=== PATIENT | male | born 1960 | race Caucasian/White ===

== ENCOUNTER 2016-11-11 22:30 | Inpatient (IN) | payer OTHER ==
[~2016-11-11] VITALS: Ht 185.4 cm; Wt 92.5 kg
--- NOTE | 2016-11-11 23:01 | NUR ---
PT SENT TO ED BY DR HO FOR FEVER AT HOME 89 AND +N/V, WEAKNESS S/P [address] SANTOS. HAD RT BKA STUMP REVISION AND HAND PINKY LEFT HAND AMPUTATED. ALSO HAD SOME ABCESSES ON LEFT PALM TREATED. PT STATES "IT MAY BE FOOD POISONING. I ATE THE LAST PIECE OF PIZZA FROM THE [place] AND THIS ALL STARTED AN HOUR LATER" PT DROUSEY IN TRIAGE. DR SANTOS WOULD LIKE TO BE CALLED WITH FOLLOW UP HAS "" FISTULA IN [place]. BP'S ARE TAKEN ON LEFT FOREARM. 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 TEMP IN TRIAGE 99.5. PT CLOTHES SOAKED IN SWEAT. HAS BEEN INCONTIANT OF URINE WHICH IS NOT HIS NORM
--- NOTE | 2016-11-11 23:09 | ED GI/GU/ABDOMINAL COMPLAINT ---
History of Present Illness General Chief Complaint: General Adult Stated Complaint: PT IS VOMITING Source: patient, family Exam Limitations: no limitations Vital Signs & Intake/Output Vital Signs & Intake/Output Vital Signs Date Time Temp Pulse Resp B/P B/P Pulse O2 O2 Flow FiO2 Mean Ox Delivery Rate 11/12 0353 97.2 72 18 106/58 94 Nasal 2.0L Cannula 11/12 0245 98.9 95 18 95/49 96 Nasal 2.0L Cannula 11/12 0130 95/49 11/12 0127 94 Nasal 2.0L Cannula 11/12 0125 98.9 71 20 91/48 94 Nasal 2.0L Cannula 11/11 2252 99.5 86 18 121/74 93 Room Air ED Intake and Output 11/12 0000 11/11 1200 Intake Total Output Total Balance Patient 240 lb Weight Weight Reported by Patient Measurement Method Allergies Coded Allergies: cefepime (HIVES 11/09/16) darbepoetin sherley (From ARANESP (IN ALBUMIN)) (throat swells 11/09/16) linezolid (blurry vision 11/09/16) metformin (GI DISTRESS 11/09/16) ondansetron (From ZOFRAN ( HYDROCHLORIDE)) (irregular heartbeat 11/09/16) sulfamethoxazole (From BACTRIM) (KIDNEY ISSUES 11/10/16) trimethoprim (From BACTRIM) (KIDNEY ISSUES 11/10/16) Reconcile Medications Cholecalciferol (Vitamin D3) (Vitamin D) 2,000 UNIT CAPSULE 1 CAP PO DAILY HEALTH SUPPLEMENT (Reported) Mycophenolate Mofetil 500 MG TABLET 2 TAB PO BID IMMUNOSUPPRESSANT (Reported) Pantoprazole Sodium (Protonix) 20 MG TABLET. 1 TAB PO DAILY GERD (Reported) Prednisone 5 MG TABLET 1 TAB PO DAILY INFLAMMATION (Reported) Tacrolimus 1 MG CAPSULE 2 CAP PO BID ANTI-REJECTION (Reported) Triage Note: PT SENT TO ED BY DR HO FOR FEVER AT HOME 89 AND +N/V, WEAKNESS S/P [address] SANTOS. HAD RT BKA STUMP REVISION AND HAND PINKY LEFT HAND AMPUTATED. ALSO HAD SOME ABCESSES ON LEFT PALM TREATED. PT STATES "IT MAY BE FOOD POISONING. I ATE THE LAST PIECE OF PIZZA FROM THE [place] AND THIS ALL STARTED AN HOUR LATER" PT DROUSEY IN TRIAGE. DR SANTOS WOULD LIKE TO BE CALLED WITH FOLLOW UP HAS "" FISTULA IN [place]. BP'S ARE TAKEN ON LEFT FOREARM. 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 TEMP IN TRIAGE 99.5. PT CLOTHES SOAKED IN SWEAT. HAS BEEN INCONTINAT OF URINE WHICH IS NOT HIS NORM Triage Nurses Notes Reviewed? yes Duration: hour(s): Timing: recent history Quality/Severity: moderate Modifying Factors: Improves With: rest. Worsens With: vomiting. Associated Symptoms: nausea/vomiting HPI: 56-year-old gentleman with peripheral vascular disease, status post right BKA, status post left finger amputation, on daptomycin via PICC line for osteomyelitis of his left hand, presents with riders and nausea and vomiting for the past several hours. He notes that he had debriding of his right BKA stump as well as debriding of his left palm or chronic infection. These procedures Job without complication. He felt well upon discharge. However soon after returning home he developed Reiger's, and a high fever. He does not confer shortness of breath cough phlegm chest pain rashes or headache. "I just didn't feel well. It happened all of a sudden. I began shaking, and sweating." Past History Travel History Traveled to [place] past 21 day No Medical History Any Pertinent Medical History? see below for history Cardiovascular: peripheral vascular disease Musculoskeletal: osteomyelitis of a left finger Surgical History Surgical History: left finger amputation, right below the knee amputation Family History Hx Contributory? No Review of Systems Review of Systems Constitutional: Reports: no symptoms. EENTM: Reports: no symptoms. Respiratory: Reports: no symptoms. Cardiovascular: Reports: no symptoms. GI: Reports: no symptoms. Genitourinary: Reports: no symptoms. Musculoskeletal: Reports: no symptoms. Skin: Reports: no symptoms. Neurological/Psychological: Reports: no symptoms. Hematologic/Endocrine: Reports: no symptoms. Immunologic/Allergic: Reports: no symptoms. All Other Systems: Reviewed and Negative Physical Exam Physical Exam General Appearance: well developed/nourished, mild distress Head: atraumatic, normal appearance Eyes: Bilateral: normal appearance. Ears, Nose, Throat, Mouth: hearing grossly normal, dry mucosa Neck: normal inspection, supple, full range of motion Respiratory: normal breath sounds, chest non-tender, no respiratory distress Cardiovascular: regular rate/rhythm Gastrointestinal: normal bowel sounds, soft, non-tender, no organomegaly Back: normal inspection Extremities: normal range of motion Neurologic/Psych: no motor/sensory deficits, awake, alert, oriented x 3 Skin: intact Core Measures ACS in differential dx? No Severe Sepsis Present: No Septic Shock Present: No Progress Differential Diagnosis: UTI versus pneumonia versus bacteremia versus other Plan of Care: Orders Procedure Date/time Status Consistent Carbohydrate 2 11/12 B Active TROPONIN LEVEL 11/12 1200 Active EKG 11/12 1200 Active TROPONIN LEVEL 11/12 0600 Active CBC WITHOUT DIFFERENTIAL 11/12 0600 Active EKG 11/12 0600 Active LACTIC ACID 11/12 0550 Active Pathway - chart 11/12 0250 Active CULTURE,URINE 11/12 0250 Active LOWER RESPIRATORY CULTURE 11/12 0250 Active URINALYSIS 11/12 0250 Active MAGNESIUM 11/12 0250 Active LACTIC ACID 11/12 0250 Active BASIC ELECTROLYTES PLUS BUN&CR 11/12 0250 Active EKG 11/12 0250 Active Patient Data 11/12 0125 Active Saline Lock 11/12 0117 Active Misc Message 11/12 0117 Active ED Holding Orders 11/12 0117 Active Admit to inpatient 11/12 0117 Active Vital Signs 11/12 0117 Active Code Status 11/12 0117 Active BLOOD CULTURE 11/12 0045 Active BLOOD CULTURE 11/12 0042 Active VTE Mechanical Prophylaxis 11/12 UNK Active FingerStick- Glucose 11/12 UNK Active ECHOCARDIOGRAM 11/12 UNK Active Intake & Output 11/11 2336 Active TROPONIN LEVEL 11/11 2235 Complete LIPASE 11/11 2235 Complete HEPATIC FUNCTION PANEL 11/11 2235 Complete CBC WITHOUT DIFFERENTIAL 11/11 2235 Complete BASIC METABOLIC PANEL 11/11 2235 Complete AMYLASE 11/11 2235 Complete EKG 11/11 2235 Active Current Medications Sig/Margaret Start time Last Medication Dose Stop Time Status Admin Insulin Detemir 25 UNITS 2200 11/12 2200 AC (Levemir) Insulin Detemir 55 UNITS DAILY 11/12 1000 AC (Levemir) Insulin Aspart 0 TIDAC 11/12 0800 AC (NovoLOG) Heparin Sodium 5,000 UNIT Q8 11/12 0600 UNVr (Porcine) Sodium Chloride 1,000 ML BOLUS ONE 11/12 0315 UNVr 11/12 (Normal Saline 0.9%) 11/12 0414 0317 Sodium Chloride 1,000 ML .[id number] 11/12 0245 UNVr (Normal Saline 0.9%) Laboratory Tests 11/11/16 2345: Anion Gap 14, Estimated GFR 34 L, BUN/Creatinine Ratio 21.0, Glucose 154 H, Calcium 9.8, Total Bilirubin 0.4, Direct Bilirubin 0.3, AST 21, ALT 34, Alkaline Phosphatase 57, Troponin I 0.52 *H, Total Protein 6.0 L, Albumin 3.4 L, Amylase 56, Lipase 132, CBC w Diff MAN DIFF ORDERED, RBC 5.57, MCV 85.3, MCH 27.0, RDW 16.0 H, MPV 7.2 L, Gran % 97.4 H, Lymphocytes % 1.5 L, Monocytes % 0.9 L, Eosinophils % 0.2, Basophils % 0 L, Absolute Granulocytes 19.2 H, Segmented Neutrophils 94 H, Band Neutrophils 4, Absolute Lymphocytes 0.3 L, Lymphocytes 1 L, Monocytes 1 L, Absolute Monocytes 0.2, Absolute Eosinophils 0 , Absolute Basophils 0, Platelet Estimate ADEQUATE, Polychromasia 1+, Hypochromic-Microcytic 1+, Ovalocytes FEW, Stomatocytes FEW, PUBS MCHC 31.7 L, Fld Total RBCs Counted 100 Microbiology 11/12 249 URINE ROUT: Urine Culture - ORD 11/12 249 LOWER RESP: Respiratory Culture - ORD 11/12 249 LOWER RESP: Gram Stain - ORD 11/12 010 BLOOD: Blood Culture - RECD 11/12 005 BLOOD: Blood Culture - RECD Diagnostic Imaging: Viewed by Me: Radiology Read. Discussed w/RAD: Radiology Read. CXR Impression: left opacity. Initial ED EKG: normal axis, normal intervals, normal p-waves, normal QRS complex, normal sinus rhythm Comments: PATIENT: MAXI KENDRICK JR PRESENT AGE: 56 PATIENT ACCOUNT NO: [id number] : 56 LOCATION: [facility] ORDERING PHYSICIAN: ALEJANDRO GAR MD SERVICE DATE: 11/11/16 EXAM TYPE: RAD - XRY-PORTABLE CHEST XRAY EXAMINATION: XR PORTABLE CHEST CLINICAL INFORMATION: Fever and hypoxia COMPARISON: 04/14/2016 TECHNIQUE: Portable frontal view of the chest was obtained. FINDINGS: Median sternotomy wires appear intact. Low lung volumes. Hazy left basilar opacity partially obscures the left hemidiaphragm. No pleural effusion or pneumothorax. The cardiomediastinal silhouette remains prominent. IMPRESSION: Hazy left basilar opacity could represent atelectasis or pneumonia. DICTATED BY: ADWOA ALVARADO MD DATE/TIME DICTATED:11/11/162331 CASH POSTING CLERK:MICKIE DATE/TIME TRANSCRIBED:11/11/162331 CONFIDENTIAL, DO NOT COPY WITHOUT APPROPRIATE AUTHORIZATION. <Electronically signed in Other Vendor System> SIGNED BY: ADWOA ALVARADO MD 11/11 Departure Departure Disposition: STILL A PATIENT Condition: Stable Clinical Impression Primary Impression: Pneumonia Secondary Impressions: Elevated troponin, Renal failure, Sepsis Referrals: ANJANA COBURN,JAZZY Vásquez (PCP/Family) Departure Forms: Customer Survey General Discharge Information Comments 11/11/16, discussed with Dr. Powers prior to arrival of patients... 23:30... discussed with surgical PA who will evaluate patient. Admission Note Spoke With: TWILA ADAMS MD Documentation of Exam: Documentation of any treatments & extenuating circumstances including Concerns Regarding Discharge (functional status, medication knowledge or non-compliance, living conditions, etc.) that warrant an admission rather than observation: Patient with positive troponin, sepsis most likely from pneumonia, in the context of his significant peripheral vascular disease, patient merits admission for broad-spectrum IV antibiotics. as well as management of his positive troponin. With Dr. alfredo who concurs with the plan of oral beta blockers and aspirin. We will hold off on heparin given his recent surgery and the risk of postsurgical bleeding. Also, the etiology of the elevated troponin is most likely supply demand rather than acute thrombus. His choice of antibiotics is challenging. He is on daptomycin which covers MRSA. Given his pneumonia, and long-standing antibiotics, it would be prudent to cover for anaerobes and also for pseudomonas. Since he is allergic to cephalosporins, I cannot give him ceftaz. I will give Cipro which does have some possible coverage for Pseudomonas. Also I wrote for clindamycin to cover anaerobes. He should have an ID consult this morning. He is otherwise stable. In discussion with Dr. Faisal Dailey, he is stable for Critical Care Note Critical Care Note Critical Care Time: 30-74 min
--- NOTE | 2016-11-11 23:20 | NUR ---
RECIEVED TO ROOM 10.
--- NOTE | 2016-11-11 23:34 | NUR ---
PT UNDRESSED FOR EXAM. DTR AT BEDSIDE ABLE TO PROVIDE HISTORY OF EVENTS AND PMH. DR GAR IN TO SEE PT.
--- NOTE | 2016-11-11 23:34 | NUR ---
FINGERSTICK 150.
--- NOTE | 2016-11-11 23:34 | NUR ---
ATTEMPTED TO DRAW LABS FROM [facility] PICC BUT NIETHER LINE GIVES BLOOD RETURN. BOTH LINES FLUSHED WITH 10CC SALINE , FLUSHES EASILY. PT STATES PICC LINE STOPPED GIVING BLOOD ABOUT A WEEK AGO.
--- NOTE | 2016-11-11 23:36 | RADIOLOGY REPORT ---
EXAMINATION: XR PORTABLE CHEST CLINICAL INFORMATION: Fever and hypoxia COMPARISON: 04/14/2016 TECHNIQUE: Portable frontal view of the chest was obtained. FINDINGS: Median sternotomy wires appear intact. Low lung volumes. Hazy left basilar opacity partially obscures the left hemidiaphragm. No pleural effusion or pneumothorax. The cardiomediastinal silhouette remains prominent. IMPRESSION: Hazy left basilar opacity could represent atelectasis or pneumonia.
--- NOTE | 2016-11-11 23:40 | NUR ---
REPORT GIVEN TO SUSSY HANSEN
--- NOTE | 2016-11-11 23:51 | NUR ---
SURGICAL PA AT BEDSIDE.
[2016-11-12 00:12] LABS: ABSOLUTE BASOPHIL COUNT 0 /CUMM (0.0-0.2); ABSOLUTE EOSINOPHIL COUNT 0 /CUMM (0.0-0.7); ABSOLUTE GRANULOCYTE CT 19.2 /CUMM (1.4-6.5); ABSOLUTE LYMPH COUNT 0.3 /CUMM (1.2-3.4); ABSOLUTE MONOCYTE COUNT 0.2 /CUMM (0.10-0.60); BASOPHIL % 0 % (0.0-2.0); EOSINOPHIL % 0.2 % (0-5); GRANULOCYTE % 97.4 % (42.2-75.2); HEMATOCRIT 47.5 % (42-52); MEAN CORPUSCULAR HGB CONC 31.7 G/DL (33.0-37.0); MEAN CORPUSCULAR VOLUME 85.3 FL (80.0-94.0); MEAN PLATELET VOLUME 7.2 FL (7.4-10.4); PLATELET COUNT 254 /CUMM (130-400); RED BLOOD CELL CT 5.57 /CUMM (4.70-6.10); WHITE BLOOD CELL COUNT 19.8 /CUMM (4.8-10.8)
--- NOTE | 2016-11-12 00:23 | PN- Plastic Surgery ---
Surgical Brief Attending Note Brief Attending Note: Patient presents back to the ED after leaving from a same day surgery earlier today, by for a revision righ bka and completion amputation of left small finger, including metacarpal with debridement. Of note, the patient is s/p I&D left hand from another institution. Due to the patient presenting back with reported fever, both dressings were taken down for examination of the incisions / surgical sites. There is no evidence of acute infection of either surigcal site. Both incisions were well approximated with sutures, with expected carina-operative bloody drainage. No purulents, gas, or unexpected findings were observed. The surgical sites were re -dressed with xeroform and dry guaze dressings. Of note, the chest xray appears to show evidence of an opacity, which could likely be the source of his fever given that he has been apparently vomiting at home since he ate pizza after surgery earlier today. Will d/w
--- NOTE | 2016-11-12 01:23 | History & Physical ---
SUZETTELOUISTARSHA MEJIA 11/12/16 0122: General Information and HPI MD Statement: I have seen and personally examined MAXI DUTTON JR and documented this H&P. The patient is a 56 year old M who presented with a patient stated chief complaint of fever Source of Information: patient Exam Limitations: no limitations History of Present Illness: 56-year-old gentleman with past medical history significant for insulin- dependent type 2 diabetes mellitus, end-stage renal disease initially on dialysis now status post right cadaveric kidney transplant in 2010 on mycophenolate, tacrolimus and prednisone, history of RI, Takotsubu, right below knee amputation with recurrent infection [stump revision in 2012, 2014], left foot partial amputation in January 2016, brought to ED for evaluation of fever and rigor after revsion of right BKA and I&D left hand from another institution. After his same day surgery, when he went home he had multiple episodes of non- bloody, non-bilious vomiting, he also experienced rigors and documented fever 103 at home associated with weakness and dizziness. Since the past month he reports that he's been having intermittent fever and night sweats, intermittent productive cough which at times he brought up greenish brownish sputum and also dysuria intermittently. Night chest pain, shortness of breath, sick contacts. At baseline uses a wheelchair and is independent with most of his ILD is able to "come his daughters help with the shopping. He also has [facility] services to his house. Allergies/Medications Compliance With Home Meds: FAIR Past History Travel History Traveled to [place] past 21 day No Medical History Neurological: NONE EENT: NONE Cardiovascular: CAD, hypertension, myocardial infarction, CABG Respiratory: NONE Gastrointestinal: NONE Hepatic: NONE Renal: chronic kidney disease, renal transplant, OLD CLOTTED AVF L ARM Musculoskeletal: R BKA, LEFT 5TH FINGER AM Psychiatric: NONE Endocrine: diabetes Blood Disorders: NONE Surgical History Surgical History: rBKA, right kidney transplant Past Family/Social History Family History Relations & Conditions if any FATHER Atrial fibrillation Relation not specified for: Hypertension in mother Psychosocial History Where do you live? Home Who Do You Live With? child Services at Home: Nursing ETOH Use: denies use Illicit Drug Use: denies illicit drug use Functional Ability ADLs Independent: dressing, eating. Needs Assist: toileting, bathing. Ambulation: WHEELCHAIR IADLs Independent: finances, food prep, telephone, medication admin. Needs Assist: shopping, housework, transportation. Employment History Employment PROFESSOR Review of Systems Review of Systems Constitutional: Reports: chills, diaphoresis, fever, weakness. Denies: malaise, unexplained weight loss. Cardiovascular: Denies: chest pain, edema, orthopena, palpitations, peripheral edema, syncope. Respiratory: Denies: cough, hemoptysis, orthopnea, short of breath, sputum production, stridor, wheezing. GI: Reports: vomiting. Denies: abdominal pain, bloating, constipation, diarrhea, distention, bowel incontinence, melena, nausea, bloody stool, changes in stool, steatorrhea. Genitourinary: Reports: dysuria. Exam & Diagnostic Data Last 24 Hrs of Vital Signs/I&O Vital Signs Date Time Temp Pulse Resp B/P B/P Pulse O2 O2 Flow FiO2 Mean Ox Delivery Rate 11/12 0353 97.2 72 18 106/58 94 Nasal 2.0L Cannula 11/12 0245 98.9 95 18 95/49 96 Nasal 2.0L Cannula 11/12 0130 95/49 11/12 0127 94 Nasal 2.0L Cannula 11/12 0125 98.9 71 20 91/48 94 Nasal 2.0L Cannula 11/11 2252 99.5 86 18 121/74 93 Room Air Intake & Output 11/12 0800 11/12 0000 11/11 1600 Intake Total Output Total Balance Patient 240 lb Weight Weight Reported by Patient Measurement Method Physical Exam General Appearance Alert, Oriented X3, Cooperative, No Acute Distress Skin Temp/Moisture Exam: Warm/Dry Sepsis Skin Exam (color): Normal for Ethnicity HEENT Atraumatic, PERRLA, EOMI, DRY MUCOUS MEMBRANES Neck Supple, No thryomegaly Lymphatic Cervical nl Cardiovascular Regular Rate, Normal S1, Normal S2 Lungs Clear to Auscultation, Normal Air Movement Abdomen Soft, No Tenderness, DISTENDED Neurological Normal Speech, Cranial Nerves 3-12 NL Extremities No Edema Diagnostic Data EKG Results Normal sinus rhythm heart rate 75 CXR Results FINDINGS: Median sternotomy wires appear intact. Low lung volumes. Hazy left basilar opacity partially obscures the left hemidiaphragm. No pleural effusion or pneumothorax. The cardiomediastinal silhouette remains prominent. IMPRESSION: Hazy left basilar opacity could represent atelectasis or pneumonia. Assessment/Plan Assessment: 56-year-old gentleman with past medical history significant for insulin- dependent type 2 diabetes mellitus, end-stage renal disease initially on dialysis now status post right cadaveric kidney transplant in 2010 on mycophenolate, tacrolimus and prednisone, history of RI, Takotsubu, right below knee amputation with recurrent infection [stump revision in 2012, 2014], left foot partial amputation in January 2016, brought to ED for evaluation of fever and rigor after revsion of right BKA and I&D left hand from another institution. Labs pertinent for leukocytosis with left shift no significant bandemia for, elevated creatinine 2.0/BUN 42, troponin 0.52, chest x-ray showed hazy left basilar opacity. Admitted to the telemetry floor for the following issues As Ranked By This Provider Problem List: 1. Sepsis Assessment/Plan Meets sepsis criteria (increased white count, hypotension and increase heart rate, possible source of left hand osteomyelitis versus pneumonia) Given two liter bolus to which his blood pressure responded, will continue on maintenance fluids cautiously avoid fluid overload He was initially on daptomycin for his left hand osteomyelitis One-time dose of clindamycin and Cipro was given in ED Follow-up blood cultures, urine culture/ UA and lactic acid His hypotension could also be secondary to adrenal insufficiency as he has been on chronic steroid. We are holding his prednisone for now. If he continues to be hypotensive, might require stress dose steriods. We will continue to monitor closely. 2. Osteomyelitis Assessment/Plan left hand osteomyelitis s/p I/D was on daptomycin as outpatient, will continue this, will ask patient to bring it from home. will obtain ID consult in am f 3. Elevated troponin Assessment/Plan NSTEMI vs demand ischemia secondary to kidney insufficiency admitt to tele floor for continuous jack of all trades trend EKG and trop to r/O ACS has history of takotsubo in the past, f/up echo continue ASA cardio consult in am 4. Renal failure Assessment/Plan gene on ckd possible secondary to pre-renal azotemia gentle IV hydration will hold immunosuppressive meds of mycophenolate and tacrolimus in view of his current infection neprology consult. 5. Diabetes Assessment/Plan monitor fingersticks continue longacting insulin and high dose insulin sliding scale diabetic diet 6. DNI (do not intubate) 7. DNR (do not resuscitate) Core Measures/Miscellaneous Acute Coronary Syndrome ACS Diagnosis: No Cerebrovascular Accident CVA/TIA Diagnosis: No Congestive Heart Failure CHF Diagnosis: No VTE (View Protocol) VTE Risk Factors: Age > 40, Immobility, paresis No Mech VTE prophylaxis d/t: Amputee No VTE Pharm Prophylaxis d/t: No contraindications VTE Diagnosis: No VTE Type: NONE VTE Confirmed by (Test): NONE Sepsis (View Protocol) Severe Sepsis Present: No Septic Shock Septic Shock Present: No Miscellaneous Documentation Attending Case Discussed With: TWILA ADAMS MD Primary Care Physician: JAZZY YEUNG MD Patient sees these Specialists DR. Babb heart customer care consultant of [place] Dr. Saini nephrology Level of Patient Care: Telemetry AMADOU COBURN,FRANCA 11/12/16 0305: General Information and HPI Allergies/Medications Allergies: Coded Allergies: nut - unspecified (Severe, DIARRHEA 11/12/16) ULCERS IN THROAT cefepime (HIVES 11/09/16) darbepoetin sherley (From ARANESP (IN ALBUMIN)) (throat swells 11/09/16) linezolid (blurry vision 11/09/16) metformin (GI DISTRESS 11/09/16) ondansetron (From ZOFRAN ( HYDROCHLORIDE)) (irregular heartbeat 11/09/16) sulfamethoxazole (From BACTRIM) (KIDNEY ISSUES 11/10/16) trimethoprim (From BACTRIM) (KIDNEY ISSUES 11/10/16) Home Med list Aspirin (Ecotrin*) 325 MG TABLET.DR 1 TAB PO DAILY heart health (Reported) Cholecalciferol (Vitamin D3) (Vitamin D) 2,000 UNIT CAPSULE 1 CAP PO DAILY HEALTH SUPPLEMENT (Reported) Mycophenolate Mofetil 500 MG TABLET 2 TAB PO BID IMMUNOSUPPRESSANT (Reported) Pantoprazole Sodium (Protonix) 20 MG TABLET.DR 1 TAB PO DAILY GERD (Reported) Prednisone 5 MG TABLET 1 TAB PO DAILY INFLAMMATION (Reported) Tacrolimus 1 MG CAPSULE 2 CAP PO BID ANTI-REJECTION (Reported) Resident Review Statement Resident Statement: examined this patient, discussed with agriculture intern, agreed with agriculture intern, reviewed EMR data (avail), reviewed images, amended to note Other Findings: Mr. Dutton is a 56-year-old male with a complicated past medical history including type 2 diabetes, hypertension, hyperlipidemia, RI, CAD, takosubo's cardiomyopathy IBS with constipation, end-stage renal disease status post right kidney transplant with a cadaveric kidney on tacrolimus, mycophenolate, and prednisone since 2010. Patient comes in with complaints of right gutters, chills and a fever 103 at home after surgery today for amputation of the little finger on his left hand secondary to osteomyelitis and revision of his right BKA due to nonhealing ulcer and infection. Patient is on daptomycin for the osteomyelitis. Problem list 1. Sepsis likely secondary to osteomyelitis on his left little finger as well as possible bacteremia from surgical and ablation of an infected right BKA -Hypotension -Fever -Posiible Source elicited ; see above -Tachycardia 2. Community-acquired Pneumonia 3. Osteomyelitis of the left little finger status post amputation 4. Type 2 diabetes 5. Acute kidney injury on CKD 6. Hx of ESRD status post right renal transplant on [facility] immunosuppressive medications. 7. History of CAD, takosubo's cardiomyopathy Plan -Admit to telemetry for monitoring -Restart daptomycin for his Osteomyelitis from AM-patient received a dose of ciprofloxacin and clindamycin in the ED -Patient is allergic to cefalosporin -Blood cultures 2, urine cultures, UA -Infectious disease consult -Nephrology consult -Plastic surgery consult -Cardiology consult -Hold his immunosuppressive meds until evaluation by a paint specialist in setting of infection -IV fluid hydration to maintain blood pressure; watch closely to avoid overload -Consider stress dose steroids hydrocortisone 100 mg 1 if patient's blood pressure does not respond to IV fluids -Pain management-By mouth Tylenol for mild pain; Give dilaudid for severe pain but hold for now due to low blood pressure -Diabetic diet -DNR/DNI -SC heparin for DVT ppx ANGIE COBURN, [facility] 11/12/16 0342: Attending MD Review Statement Attending Statement Attending MD Statement: examined this patient, discuss w/resident/PA/PUBLIC AFFAIRS DIRECTOR, agreed w/resident/PA/PUBLIC AFFAIRS DIRECTOR Attending Assessment/Plan: 56 yo unfortunate M has an extensive past history insulin dependent diabetes, HTN, suffered RI and Takutsubo CMP after his 's in 2007 requiring CABG , c/b multiorgan failure and nephrotoxicity due to contrast requiring dialysis for 2 yrs after which he underwent right cadaveric kidney transplant (2010) currently maintained on Cellcept, prograf and prednisone, CKD stage 3, IBS-C, gangrene of the right foot s/p right BKA (grew MRSA, beta strep, gram neg) with chronic ulcers, left foot partial toe amputation (2015), recently developed osteomyelitis of left small finger s/p I and D currently on IV daptomycin for past 1.5 weeks (plan for 4 weeks) as per his ID at [facility]. He underwent complete amputation of left small finger including metacarpal with debridement and revision of right BKA on November [address] Powers. He comes to the ER for c/o rigors, multiple episodes of vomiting, fever 103, cough productive of brownish phlegm and weakness. He reports that his cough has been ongoing for a few weeks now. He is wheelchair bound. He reports not being able to urinate over past 24 hours, but states he dribbles. When offered a samson, he refused. Of note , his daughter is respiratory therapist. Patient also reports that he underwent MUGA scan 2 weeks ago but is not aware of the results. Vitals: Tmax 99.5, HR 70-90's, BP 121/74 --> 91/48 --> 106/58 after IV fluids, sats 94% on 2L. Exam: dry mucous membranes, lethargic but responsive to quesions apprpriately. Skin warm/dry. Chest b/l clear, Heart S1S2 regular, Abdo soft, NT. Left hand and right BKA stump dressings ++. Labs: WBC 19.8, H/H 15.1/47.3, Plt 254, bands 4, biccarb 20, BUN 42, creat 2.0 (baseline 1.3), glucose 154, trop 0.52, amylase/lipase normal. CXR: hazy left basilar opacity ?pneumonia vs. Atelectasis. EKG: SR, IVCD (no old EKG to compare). 1. Sepsis (fever with leukocytosis and hypotension) with likely source being the left basilar pneumonia. Although I do not have a UA yet and per Plastic surgery eval, the surgical stumps sites look clean. He is currently on Daptomycin for left small finger osteomyelitis. No other sites of SSTI. In addition, he has troponin elevation likely NSTEMI vs. Demand ischemia. He will be admitted to Telemetry, monitored for arrhythmias, trend troponin, obtain Echo, Cardio consult. Obtain results of most recent MUGA scan. Aspirin, metoprolol (when BP allows) and statin. Per discussion with Dr. Dailey, holding off on IV heparin due to recent surgery and risk of bleeding, most likely demand ischemia. Panculture, IV fluids, check lactic acid, patient received IV clindamycin and ciprofloxacin in ER, he is also on IV daptomycin daily. Antibiotic choice will be challenging in this patient, would ideally cover him for HCAP with Ceftaz and Vanco. Daptomycin covers for MRSA. He is allergic to cefepime ?hives. We will hold off on additional antibiotics for now. Consult ID to help with antibiotic coverage. Obtain records from [facility], regarding dose of Daptomycin, exact duration and resume Daptomycin today. Plastic surgery to consult. Check cortisol levels, continue home dose of prednisone. If patient remains persistently hypotensive, I would consider giving stress dose steroids as patient is on chronic prednisone therapy for his renal transplant. 2. GENE on CKD stage 3 with metabolic acidosis. IV hydration, trend renal functions. Consult Nephro given patient is on immunosuppresive therapy. Check urinalysis, urine lytes and urine tox screen. DVT ppx Hep SC. DNR/I.
--- NOTE | 2016-11-12 01:26 | NUR ---
PT MEDICATED PER WITH ASPIRIN, CIPRO AND CLEOCIN.
--- NOTE | 2016-11-12 01:30 | NUR ---
PT HAS WOUNDS TO BOTTOM FROM BEING WHEELCHAIR BOUND. PT REPOSITIONED IN STRETCHER.
--- NOTE | 2016-11-12 01:45 | NUR ---
HOUSESTAFF IN TO NANCY PT.
--- NOTE | 2016-11-12 01:45 | NUR ---
PT'S BP 91/48, FRANCA JEAN MADE AWARE. NS BOLUS INITIATED PER EMAR.
--- NOTE | 2016-11-12 01:46 | NUR ---
PT'S RM ASSIGNMENT 176 BED 1
--- NOTE | 2016-11-12 02:10 | NUR ---
REPORT GIVEN TO JADE BLACK ON TELEMETRY.
[2016-11-12] MEDS ORDERED: TACROLIMUS1 M1 PO (02:51)
[2016-11-12] MEDS ORDERED: MYCOPHENOLATE500 M1 PO (02:52)
[2016-11-12] MEDS ORDERED: PREDNISONE5 M1 PO (02:56)
[2016-11-12] MEDS ORDERED: PROTONIX20 M1 PO (02:56)
[2016-11-12] MEDS ORDERED: VITAMIN D2000 UNIT PO (02:57)
--- NOTE | 2016-11-12 03:10 | NUR ---
DR ADAMS AT BEDSIDE FOR EVAL.
--- NOTE | 2016-11-12 03:11 | NUR ---
DR ADAMS AWARE OF PT'S BP.
--- NOTE | 2016-11-12 03:18 | NUR ---
NS BOLUS #2 INITITATED PER EMAR.
[2016-11-12 03:53] VITALS: BP 106/58
[2016-11-12] MEDS ORDERED: ASPIRIN EC325 M2 PO (04:39)
--- NOTE | 2016-11-12 05:20 | Admission Certification ---
Admission Certification Certification Statement - As attending physician, I certify that at the time of - admission, based on clinical presentation, severity of - symptoms, need for further diagnostic testing and - therapeutic interventions, and risk of adverse outcomes - without in-hospital treatment, in my clinical assessment, - this patient requires an acute hospital stay for a minimum - of two nights or longer. I have also considered psychsocial - factors such as support system, advanced age, financial - issues, cognitive issues, and failed out-patient treatments, - past re-admission history, safety of patient, and lack of - compliance as applicable. Specific rationale supporting this admission is: Sepsis, NSTEMI, JEAN on CKD.
[2016-11-12 08:29] LABS: ABSOLUTE BASOPHIL COUNT 0 /CUMM (0.0-0.2); ABSOLUTE EOSINOPHIL COUNT 0 /CUMM (0.0-0.7); ABSOLUTE LYMPH COUNT 0.3 /CUMM (1.2-3.4); ABSOLUTE MONOCYTE COUNT 0.7 /CUMM (0.10-0.60); BASOPHIL % 0 % (0.0-2.0); EOSINOPHIL % 0 % (0-5); GRANULOCYTE % 95.9 % (42.2-75.2); MEAN CORPUSCULAR HGB 27.3 PG (27.0-31.0); MEAN CORPUSCULAR HGB CONC 31.9 G/DL (33.0-37.0); MEAN CORPUSCULAR VOLUME 85.7 FL (80.0-94.0); MEAN PLATELET VOLUME 7.3 FL (7.4-10.4); PLATELET COUNT 215 /CUMM (130-400); RBC DISTRIBUTION WIDTH 15.6 % (11.5-14.5); RED BLOOD CELL CT 4.67 /CUMM (4.70-6.10)
[2016-11-12 08:56] LABS: HEMATOCRIT 40.1 % (42-52)
[2016-11-12 09:00] VITALS: BP 110/60
--- NOTE | 2016-11-12 09:35 | NUR ---
ADMITTED PATIENT FROM THE ER ON A STRETCHER. HE CAME VERY WEAK AND TIRED. DRESSING TO HIS RIGHT BKA OPENED UP AND DRESSING WAS CHANGED WITH XEROFOAM, KERLIX WRAP AND SARITA WRAPPED, SECURED WITH A TAPE. ALERT AND ORIENTED TO PLACE, PERSON AND TIME. WAS JUST DISCHARGED ON MONDAY AND WENT HOME BUT NOT FEELING WELL AFTER A MEAL OF PIZZA, N/V CAME BACK DEHYDRATED. WAS GIVEN A BOLUS OF 2 BAGS OF 1L NS IN THE ER AND STARTED ON A CONTINUOUS INFUSION OF NS AT 75ML/HR. RBKA INSION WITH SUTURES INTACT AND WELL APPROXIMATED BUT STILL DRAINING MODERATE BLOODY OUTPUT. ACCU CHECKED, LABS DRAWN IN AM.REVIEWED ADMISSION PROTOCOLS WITH PATIENT. BED IN LOW POSITION, CALL MARTINEZ AT REACH. PATIENT COMPLAINED OF PAIN OF 8 OUT OF 10 ON HIS RBKA AND 5 ON HIS LEFT PALM WOUND. REFUSED NARCOTICS, REQUESTED FOR TYLENOL. STATED THAT NARCOTIC MAKES HIM SICK TO HIS TO HIS STOMACH. TYLENOL OF GOOD EFFECT. REPORT GIVEN TO THE NEXT SHIFT RN.
--- NOTE | 2016-11-12 14:54 | Cons- Cardiology ---
General Information and HPI Consulting Request Date of Consult: 11/12/16 Requested By: ANGIE COBURN,TWILA History of Present Illness: Mr. Dutton is a 56 year old male with history of hypertension, diabetes and coronary artery disease s/p OH with CABG x 2 and stress induced cardiomyopathy. He also is a vasculopath with extensive peripheral vascular disease. Finally, this patient has a history of renal failure with a transplanted kidney. Yesterday this patient underwent surgery for his right leg stump and left hand. After surgery the patient went home where he became nauseated and felt weak with documented fever. He denies chest pain, pressure, tightness, shortness of breath at his current level of activity of palpitaitons. He does have some occasional lightheadedness and was noted to have paroxysma of type 1 second degree AV block. His troponin is elevated in the setting of a creatinine of 2.0. The patient has an elevated WBC count along with a possible infiltrate on his chest X-ray. Allergies/Medications Allergies: Coded Allergies: nut - unspecified (Severe, DIARRHEA 11/12/16) ULCERS IN THROAT cefepime (HIVES 11/09/16) darbepoetin sherley (From ARANESP (IN ALBUMIN)) (throat swells 11/09/16) linezolid (blurry vision 11/09/16) metformin (GI DISTRESS 11/09/16) ondansetron (From ZOFRAN ( HYDROCHLORIDE)) (irregular heartbeat 11/09/16) sulfamethoxazole (From BACTRIM) (KIDNEY ISSUES 11/10/16) trimethoprim (From BACTRIM) (KIDNEY ISSUES 11/10/16) Home Med List: Aspirin (Ecotrin*) 325 MG TABLET.DR 1 TAB PO DAILY heart health (Reported) Cholecalciferol (Vitamin D3) (Vitamin D) 2,000 UNIT CAPSULE 1 CAP PO DAILY HEALTH SUPPLEMENT (Reported) Mycophenolate Mofetil 500 MG TABLET 2 TAB PO BID IMMUNOSUPPRESSANT (Reported) Pantoprazole Sodium (Protonix) 20 MG TABLET.DR 1 TAB PO DAILY GERD (Reported) Prednisone 5 MG TABLET 1 TAB PO DAILY INFLAMMATION (Reported) Tacrolimus 1 MG CAPSULE 2 CAP PO BID ANTI-REJECTION (Reported) Review of Systems Review of Systems: A twelve point review of systems is remarkable for occasional heartburn. Past History Travel History Traveled to [place] past 21 day No Medical History Neurological: NONE EENT: NONE Cardiovascular: peripheral vascular disease Respiratory: NONE Gastrointestinal: NONE Hepatic: NONE Renal: chronic kidney disease, renal transplant, OLD CLOTTED AVF L ARM Musculoskeletal: osteomyelitis of a left finger Psychiatric: NONE Endocrine: diabetes Blood Disorders: NONE Surgical History Surgical History: rBKA right kidney transplant Family History Relations & Conditions If Any: FATHER Atrial fibrillation Relation not specified for: Hypertension in mother Psychosocial History Where Do You Live? Home Who Do You Live With? child Services at Home: Nursing Smoking Status: Former Smoker ETOH Use: denies use Illicit Drug Use: denies illicit drug use Functional Ability ADLs Independent: dressing, eating. Needs Assist: toileting, bathing. Ambulation: WHEELCHAIR IADLs Independent: finances, food prep, telephone, medication admin. Needs Assist: shopping, housework, transportation. Employment History Employment: PROFESSOR Exam & Diagnostic Data Vital Signs and I&O Vital Signs Date Time Temp Pulse Resp B/P B/P Pulse O2 O2 Flow FiO2 Mean Ox Delivery Rate 11/12 0900 98.3 72 20 110/60 92 Room Air 11/12 0353 97.2 72 18 106/58 94 Nasal 2.0L Cannula 11/12 0345 94 Nasal 2.0L Cannula 11/12 0245 98.9 95 18 95/49 96 Nasal 2.0L Cannula 11/12 0130 95/49 11/12 0127 94 Nasal 2.0L Cannula 11/12 0125 98.9 71 20 91/48 94 Nasal 2.0L Cannula 11/11 2252 99.5 86 18 121/74 93 Room Air Intake & Output 11/12 1600 11/12 0800 11/12 0000 11/11 1600 11/11 0800 11/11 0000 Intake Total 1080 720 Output Total 600 Balance 480 720 Intake, IV 600 600 Intake, Oral 480 120 Number 1 Bowel Movements Output, Urine 600 Patient 204 lb 204 lb 240 lb Weight Weight Reported by Patient Reported by Patient Measurement Method Physical Exam: General: WD/ overweight male in NAD; alert and oriented x 3 HEENT: NC/AT, PERRL, EOMI Neck: no JVD, no carotid bruit Heart: RRR w/o murmur Lungs: clear bilaterally Abdomen: soft, obese, NT, +ve bowel sounds Ext: no edema, Right BKA, left hand bandaged Assessment/Plan Assessment/Plan * This patient had a transient low normal blood pressure following surgery without any definite evidence of sepsis. The patient likely was mildly dehydrated. This patient may also have a mild infection although he denies any definite cough or shortness of breath suggestive of pneumonia and his elevated WBC count may be related to his steroid therapy. * In regard to the patient's cardiac status he is ruling in for an OH with borderline inferior ST elevations. We will attempt to treat this medically considering his absence of pain and more importantly his renal transplant with increased creatinine. A dye load during a cardiac catheterization would run a good chance of sacrificing his kidney. Begin IV heparin, aspirin and Plavix 300mg followed by 75mg daily. He will need careful monitoring of his H/H and recent wounds. In consideration of his low normal BP I will not begin nitrates especially if he is pain free. Beta blockers are also contraindicated due to his bradycardia with second degree AV block. Continue to monitor on telemetry. Follow cardiac enzymes until they peak. * No ACEI due to borderline BP and increased creatinine. * Obtain an echocardiogram to assess his EF. Consult Acknowledgment - Thank you for your consult request.
[2016-11-12 15:40] VITALS: BP 140/62
--- NOTE | 2016-11-12 16:19 | PN- Att Addend ---
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, with past medical history significant for IDDM, hypertension, [place], cardiomyopathy, CABG, status post right cadaveric kidney transplant in 2010 and on multiple immunosuppressive therapy, CK D stage III, gangrene of the right foot status post right below-knee amputation with chronic ulcers, left foot partial amputation and recently developed osteomyelitis of the left small finger status post incision and drainage currently on IV daptomycin for the past 1-1/2 weeks and debridement and division of the right below-knee amputation on November 11 by the plastic surgeon has been admitted to the floor with fever, rigors or vomiting and productive cough and is currently being treated for possible pneumonia and osteomyelitis. Patient was seen and examined on the bedside and had a lengthy discussion about his past medical history. Patient in good spirits, excellent communication and reports no fever or pain and feels excellent as compared to when he was admitted last night. Of note patient had elevated troponins for which cardiology was put on board and suggested to treat him with IV heparin, aspirin and Plavix with a loading dose. We'll get an echo and will keep him off of beta blockers because of his bradycardia and second-degree AV block and nitrates given no chest pain and low blood pressure. Patient was also thoroughly discussed with the ID recommended to continue with his immunosuppressive therapy including steroids and will try obtaining his daptomycin from home which is not available in house. We'll consider giving him a stress dose of steroids if his blood pressure drops. Will get a nephrology consult given history of transplant kidney with immunosuppressive therapy and elevated creatinine. Continue insulin. We will closely monitor for any bleeding given his recent minor surgical procedures since he is on IV heparin.
--- NOTE | 2016-11-12 18:35 | Cons- Nephrology ---
General Information and HPI Consulting Request Date of Consult: 11/12/16 Requested By: ANGIE COBURN,TWILA History of Present Illness: Mr. Dutton is a 56 yo gentleman with ESRD due to DM who started dialysis i 2008 and had a 6 antigen match kidney in 2010 at [facility]. He has had multiple admissions for infection in his foot, stump and hand and was recently in [facility] for treatment of this. He has a baseline Creatinine of about 1.5 and came to [facility] yesterday as outpt for surgery with amputation of a finger and debridement of his wound. Creatinine was 1.3 prior to surgery. He went home had developed fever to 103 and rigors and returned and now has a creatinine of 2.0. Allergies/Medications Allergies: Coded Allergies: nut - unspecified (Severe, DIARRHEA 11/12/16) ULCERS IN THROAT cefepime (HIVES 11/09/16) darbepoetin sherley (From ARANESP (IN ALBUMIN)) (throat swells 11/09/16) linezolid (blurry vision 11/09/16) metformin (GI DISTRESS 11/09/16) ondansetron (From ZOFRAN ( HYDROCHLORIDE)) (irregular heartbeat 11/09/16) sulfamethoxazole (From BACTRIM) (KIDNEY ISSUES 11/10/16) trimethoprim (From BACTRIM) (KIDNEY ISSUES 11/10/16) Home Med List: Aspirin (Ecotrin*) 325 MG TABLET.DR 1 TAB PO DAILY heart health (Reported) Cholecalciferol (Vitamin D3) (Vitamin D) 2,000 UNIT CAPSULE 1 CAP PO DAILY HEALTH SUPPLEMENT (Reported) Mycophenolate Mofetil 500 MG TABLET 2 TAB PO BID IMMUNOSUPPRESSANT (Reported) Pantoprazole Sodium (Protonix) 20 MG TABLET.DR 1 TAB PO DAILY GERD (Reported) Prednisone 5 MG TABLET 1 TAB PO DAILY INFLAMMATION (Reported) Tacrolimus 1 MG CAPSULE 2 CAP PO BID ANTI-REJECTION (Reported) Current Medications: Current Medications Sig/Margaret Start time Last Medication Dose Route Stop Time Status Admin Acetaminophen 650 MG Q4 PRN 11/12 0430 AC 11/12 PO 0439 Aspirin 81 MG DAILY 11/13 1000 AC PO Aspirin 0 .STK-MED ONE 11/12 0115 DC PO Aspirin 325 MG ONCE ONE 11/125 DC 11/12 PO 06/10 0046 0118 Aspirin Buffered 325 MG DAILY 11/12 1000 DC 11/12 PO 0855 Cholecalciferol 2,000 IU DAILY 11/12 1000 AC 11/12 PO 0855 Ciprofloxacin 500 MG BID 11/12 1405 AC PO 11/16 1404 Ciprofloxacin 0 .STK-MED ONE 11/12 0115 DC PO Ciprofloxacin 500 MG ONCE ONE 11/12 0045 DC 11/12 PO 11/12 0046 0118 Clindamycin 600 MG ONCE ONE 11/12 0045 DC 11/12 Dextrose/Water 50 ML IV 11/12 0114 0118 Clopidogrel Bisulfate 75 MG DAILY 11/13 1000 AC PO Clopidogrel Bisulfate 300 MG ONCE ONE 11/12 1500 DC PO 11/12 1501 Heparin Sodium 4,000 UNIT ONE ONE 11/12 1615 DC (Porcine) IV 11/12 1616 Heparin Sodium 5,000 UNIT ONCE ONE 11/12 1500 CAN (Porcine) IV 11/12 1530 Heparin Sodium 25,000 UNIT Q24H 11/12 1500 AC (Porcine) IV Sodium Chloride 500 ML Heparin Sodium 5,000 UNIT Q8 11/12 0600 DC 11/12 (Porcine) SC 1352 Hydromorphone HCl 0.5 MG Q4P PRN 11/12 0430 AC 11/12 IV 0855 Insulin Aspart 15 UNITS TIDAC 11/12 1700 AC SC Insulin Aspart 0 TIDAC 11/12 0800 AC 11/12 SC 1208 Insulin Detemir 25 UNITS 2200 11/12 2200 AC SC Insulin Detemir 55 UNITS DAILY 11/12 1000 AC 11/12 SC 0855 Metoprolol Tartrate 12.5 MG ONCE ONE 11/12 0100 DC PO 11/12 0101 Mycophenolate Mofetil 750 MG BID 11/12 2200 AC PO Mycophenolate Mofetil 1,000 MG BID 11/12 1209 DC 11/12 PO 1352 Non-Formulary 0 SEE ADMIN CRITERIA 11/12 1415 UNVr Medication ANY Polyethylene Glycol 17 GM DAILY PRN 11/12 0430 AC PO Prednisone 15 MG DAILY 11/12 1210 AC 11/12 PO 1352 Senna/Docusate Sodium 1 TAB BID PRN 11/12 0430 AC PO Sodium Chloride 1,000 ML BOLUS ONE 11/12 0315 DC 11/12 IV 11/12 0414 0317 Sodium Chloride 1,000 ML .[id number] 11/12 0245 AC 11/12 IV 0500 Sodium Chloride 1,000 ML BOLUS ONE 11/12 0145 DC 11/12 IV 11/12 0244 0143 Tacrolimus 1 MG AT BEDTIME 11/12 2200 AC PO Tacrolimus 1.5 MG DAILY 11/12 1345 AC PO Tacrolimus 2 MG BID 11/12 1215 DC PO Review of Systems Review of Systems: As in HPI otherwise negative. Past History Travel History Traveled to [place] past 21 day No Medical History Neurological: NONE EENT: NONE Cardiovascular: peripheral vascular disease Respiratory: NONE Gastrointestinal: NONE Hepatic: NONE Renal: chronic kidney disease, renal transplant, OLD CLOTTED AVF L ARM Musculoskeletal: osteomyelitis of a left finger Psychiatric: NONE Endocrine: diabetes Blood Disorders: NONE Surgical History Surgical History: rBKA right kidney transplant Family History Relations & Conditions If Any: FATHER Atrial fibrillation Relation not specified for: Hypertension in mother Psychosocial History Where Do You Live? Home Who Do You Live With? child Services at Home: Nursing Smoking Status: Former Smoker ETOH Use: denies use Illicit Drug Use: denies illicit drug use Functional Ability ADLs Independent: dressing, eating. Needs Assist: toileting, bathing. Ambulation: WHEELCHAIR IADLs Independent: finances, food prep, telephone, medication admin. Needs Assist: shopping, housework, transportation. Employment History Employment: PROFESSOR Exam & Diagnostic Data Vital Signs and I&O M comfortable 140/62 98.9 74 Skin neg rash Eyes anicteric ENT moist Lungs clear Cor RRR Abd obese N/T Ext s/p r bkA, left foot bandaged, left hand bandaged Results Pertinent Lab Results: Laboratory Tests 11/12 11/12 11/12 1705 1215 1215 Chemistry Troponin I (<0.11 ng/ml) 2.38 *H Toxicology Urine Opiates Screen (>2000 NG/ML) < 100.00 Methadone Screen (>300 NG/ML) < 40 Barbiturate Screen (>200 NG/ML) < 60 Ur Phencyclidine Scrn (>25 NG/ML) < 6.00 Amphetamines Screen (>1000 NG/ML) < 100 U Benzodiazepines Scrn (>200 NG/ML) > 800 H Urine Cocaine Screen (>300 NG/ML) < 50 Urine Cannabis Screen (>50 NG/ML) < 5.00 Urines Urine Color (YEL,AMB,STR) YEL Urine Clarity (CLEAR) CLEAR Urine pH (5.0 - 8.0) 6.0 Ur Specific [place] (1.001 - 1.035) 1.020 Urine Protein (NEG,<30 MG/DL) 100 H Urine Ketones (NEG) NEG Urine Nitrite (NEG) NEG Urine Bilirubin (NEG) NEG Urine Urobilinogen (0.1 - 1.0 EU/dl) 0.2 Ur Leukocyte Esterase (NEG) SMALL H Ur Microscopic SEDIMENT EXAMINED Urine RBC (0 - 5 /HPF) RARE Urine WBC (0 - 2 /HPF) 25-50 H Urine Mucus (FEW,NONE) FEW Urine Hemoglobin (NEG) TRACE-INTACT H Ur Random Creatinine (mg/dL) 124.6 Ur Random Sodium (30 - 90 mmol/L) 36 Ur Random Potassium (mmol/L) 27.7 Fraction Sodium Excret (<1% %) 0.4 Urine Glucose (N MG/DL) 250 H 11/12 11/12 11/12 1125 1125 0630 Chemistry Lactic Acid (0.7 - 2.1 mmol/L) 1.5 Troponin I (<0.11 ng/ml) 2.25 *H Cortisol AM Sample (4.46 - 22.7 ug/dL) 11.8 10 06 0630 0250 Chemistry Sodium Cancelled Potassium Cancelled Chloride Cancelled Carbon Dioxide Cancelled Anion Gap Cancelled BUN Cancelled Creatinine Cancelled BUN/Creatinine Ratio Cancelled Hemoglobin A1c (4.2 - 5.8 %) Pending Lactic Acid Cancelled Magnesium Cancelled Troponin I (<0.11 ng/ml) 1.90 *H Hematology CBC w Diff MAN DIFF ORDERED WBC (4.8 - 10.8 /CUMM) 23.0 H RBC (4.70 - 6.10 /CUMM) 4.67 L Hgb (14.0 - 18.0 G/DL) 12.8 L Hct (42 - 52 %) 40.1 L MCV (80.0 - 94.0 FL) 85.7 MCH (27.0 - 31.0 PG) 27.3 RDW (11.5 - 14.5 %) 15.6 H Plt Count (130 - 400 /CUMM) 215 MPV (7.4 - 10.4 FL) 7.3 L Gran % (42.2 - 75.2 %) 95.9 H Lymphocytes % (20.5 - 51.1 %) 1.2 L Monocytes % (1.7 - 9.3 %) 2.9 Eosinophils % (0 - 5 %) 0 Basophils % (0.0 - 2.0 %) 0 L Absolute Granulocytes (1.4 - 6.5 /CUMM) 22.0 H Segmented Neutrophils (42.2 - 75.2 %) 85 H Band Neutrophils (0.0 - 5.0 %) 11 H Absolute Lymphocytes (1.2 - 3.4 /CUMM) 0.3 L Lymphocytes (20.5 - 51.1 %) 1 L Monocytes (1.7 - 9.3 %) 3 Absolute Monocytes (0.10 - 0.60 /CUMM) 0.7 H Absolute Eosinophils (0.0 - 0.7 /CUMM) 0 Absolute Basophils (0.0 - 0.2 /CUMM) 0 Platelet Estimate (ADEQUATE) VERIFIED BY SMEAR Anisocytosis 1+ PUBS MCHC (33.0 - 37.0 G/DL) 31.9 L 11/11 2345 Chemistry Sodium (137 - 145 mmol/L) 137 Potassium (3.5 - 5.1 mmol/L) 3.8 Chloride (98 - 107 mmol/L) 104 Carbon Dioxide (22 - 30 mmol/L) 20 L Anion Gap (5 - 16) 14 BUN (9 - 20 mg/dL) 42 H Creatinine (0.7 - 1.2 mg/dL) 2.0 H Estimated GFR (>60 ml/min) 34 L BUN/Creatinine Ratio (7 - 25 %) 21.0 Glucose (65 - 99 mg/dL) 154 H Calcium (8.4 - 10.2 mg/dL) 9.8 Total Bilirubin (0.2 - 1.3 mg/dL) 0.4 Direct Bilirubin (< 0.4 mg/dL) 0.3 AST (17 - 59 U/L) 21 ALT (21 - 72 U/L) 34 Alkaline Phosphatase (< 127 U/L) 57 Troponin I (<0.11 ng/ml) 0.52 *H Total Protein (6.3 - 8.2 g/dL) 6.0 L Albumin (3.5 - 5.0 g/dL) 3.4 L Amylase (30 - 110 U/L) 56 Lipase (23 - 300 U/L) 132 Hematology CBC w Diff MAN DIFF ORDERED WBC (4.8 - 10.8 /CUMM) 19.8 H RBC (4.70 - 6.10 /CUMM) 5.57 Hgb (14.0 - 18.0 G/DL) 15.1 Hct (42 - 52 %) 47.5 MCV (80.0 - 94.0 FL) 85.3 MCH (27.0 - 31.0 PG) 27.0 RDW (11.5 - 14.5 %) 16.0 H Plt Count (130 - 400 /CUMM) 254 MPV (7.4 - 10.4 FL) 7.2 L Gran % (42.2 - 75.2 %) 97.4 H Lymphocytes % (20.5 - 51.1 %) 1.5 L Monocytes % (1.7 - 9.3 %) 0.9 L Eosinophils % (0 - 5 %) 0.2 Basophils % (0.0 - 2.0 %) 0 L Absolute Granulocytes (1.4 - 6.5 /CUMM) 19.2 H Segmented Neutrophils (42.2 - 75.2 %) 94 H Band Neutrophils (0.0 - 5.0 %) 4 Absolute Lymphocytes (1.2 - 3.4 /CUMM) 0.3 L Lymphocytes (20.5 - 51.1 %) 1 L Monocytes (1.7 - 9.3 %) 1 L Absolute Monocytes (0.10 - 0.60 /CUMM) 0.2 Absolute Eosinophils (0.0 - 0.7 /CUMM) 0 Absolute Basophils (0.0 - 0.2 /CUMM) 0 Platelet Estimate (ADEQUATE) ADEQUATE Polychromasia 1+ Hypochromic-Microcytic 1+ Ovalocytes FEW Stomatocytes FEW PUBS MCHC (33.0 - 37.0 G/DL) 31.7 L Other Body Source Fld Total RBCs Counted (%) 100 Assessment/Plan Assessment/Recommendations Assessment: JEAN. Likely post op ATN with sepsis. he has been started on broad spectrum antibiotics. I would continue these. Please recheck labs the only labs we have are 18 hrs old and he tells me he hasn't voided today and when he voided yesterday urine was dark. IF renal function worsens he may need transfer back to [facility] for management. Would contiue his immunosupressive drugs in the interim. Recommendations: Continue transplant meds IVF REcheck labs today and daily
[2016-11-13 01:07] VITALS: BP 136/60
[2016-11-13 02:09] LABS: PTT 31 SEC (25-37)
--- NOTE | 2016-11-13 08:35 | PN- Housestaff ---
Objective Last 24 Hrs of Vital Signs/I&O Vital Signs Date Time Temp Pulse Resp B/P B/P Pulse O2 O2 Flow FiO2 Mean Ox Delivery Rate 11/13 0107 99.5 59 20 136/60 97 Room Air 11/12 1540 98.9 74 20 140/62 95 Room Air 11/12 0900 98.3 72 20 110/60 92 Room Air Intake & Output 11/13 1600 11/13 0800 11/13 0000 Intake Total 700 290 Output Total 775 Balance 700 -485 Intake, IV 700 290 Output, Urine 775 Current Medications: Current Medications Sig/Margaret Start time Last Medication Dose Route Stop Time Status Admin Acetaminophen 650 MG Q4 PRN 11/12 0430 AC 11/12 PO 0439 Aspirin 81 MG DAILY 11/13 1000 AC PO Aspirin Buffered 325 MG DAILY 11/12 1000 DC 11/12 PO 0855 Cholecalciferol 2,000 IU DAILY 11/12 1000 AC 11/12 PO 0855 Ciprofloxacin 500 MG BID 11/12 1405 AC 11/12 PO 11/16 1404 2131 Clopidogrel Bisulfate 75 MG DAILY 11/13 1000 AC PO Clopidogrel Bisulfate 75 MG DAILY 11/13 1000 CAN PO Clopidogrel Bisulfate 300 MG ONCE ONE 11/12 1845 CAN PO 11/12 1846 Clopidogrel Bisulfate 300 MG ONCE ONE 11/12 1500 DC 11/12 PO 11/12 1501 1829 Daptomycin 400 MG DAILY@11/12 2000 AC 11/12 IV 2038 Heparin Sodium 5,550 UNIT BOLUS ONE 11/13 0250 DC 11/13 (Porcine) IV 11/13 0251 0430 Heparin Sodium 4,000 UNIT ONE ONE 11/12 1615 DC 11/12 (Porcine) IV 11/12 1616 1829 Heparin Sodium 5,000 UNIT ONCE ONE 11/12 1500 CAN (Porcine) IV 11/12 1530 Heparin Sodium 25,000 UNIT Q24H 11/12 1500 AC 11/12 (Porcine) IV 1832 Sodium Chloride 500 ML Heparin Sodium 5,000 UNIT Q8 11/12 0600 DC 11/12 (Porcine) SC 1352 Heparin Sodium/ 25,000 UNIT Q24H 11/12 1845 CAN Dextrose IV Dextrose/Water 500 ML Hydromorphone HCl 0.5 MG Q4P PRN 11/12 0430 AC 11/12 IV 0855 Insulin Aspart 15 UNITS TIDAC 11/12 1700 AC 11/13 SC 0827 Insulin Aspart 0 TIDAC 11/12 0800 AC 11/13 [place] 0827 Insulin Detemir 25 UNITS 2200 11/12 2200 AC 11/12 SC 2132 Insulin Detemir 55 UNITS DAILY 11/12 1000 AC 11/13 SC 0828 Mycophenolate Mofetil 750 MG BID 11/12 2200 AC 11/12 PO 2130 Mycophenolate Mofetil 1,000 MG BID 11/12 1209 DC 11/12 PO 1352 Non-Formulary 0 SEE ADMIN CRITERIA 11/12 1415 DC Medication ANY Polyethylene Glycol 17 GM DAILY PRN 11/12 0430 AC PO Prednisone 15 MG DAILY 11/12 1210 AC 11/12 PO 1352 Senna/Docusate Sodium 1 TAB BID PRN 11/12 043 AC PO Sodium Chloride 1,000 ML .[id number] 11/12 0245 AC 11/13 IV 0644 Tacrolimus 1 MG AT BEDTIME 11/12 220 AC 11/12 PO 2131 Tacrolimus 1.5 MG DAILY 11/12 1345 AC PO Tacrolimus 2 MG BID 11/12 1215 DC PO Last 24 Hrs of Lab/Ashish Results Last 24 Hrs of Labs/Mics: Laboratory Tests 11/13/16 0100: Troponin I 1.94 *H, APTT 31 11/12/162001: Anion Gap 9, Estimated GFR 33 L, BUN/Creatinine Ratio 19.5 11/12/16 1705: Troponin I 2.38 *H 11/12/16 1215: Urine Color YEL, Urine Clarity CLEAR, Urine pH 6.0, Ur Specific [place] 1.020, Urine Protein 100 H, Urine Ketones NEG, Urine Nitrite NEG, Urine Bilirubin NEG, Urine Urobilinogen 0.2, Ur Leukocyte Esterase SMALL H, Ur Microscopic SEDIMENT EXAMINED, Urine RBC RARE, Urine WBC 25-50 H, Urine Mucus FEW, Urine Hemoglobin TRACE-INTACT H, Urine Glucose 250 H 11/12/16 1215: Urine Opiates Screen < 100.00, Methadone Screen < 40, Barbiturate Screen < 60, Ur Phencyclidine Scrn < 6.00, Amphetamines Screen < 100, U Benzodiazepines Scrn > 800 H, Urine Cocaine Screen < 50, Urine Cannabis Screen < 5.00, Ur Random Creatinine 124.6, Ur Random Sodium 36, Ur Random Potassium 27.7, Fraction Sodium Excret 0.4 11/12/16 1125: Troponin I 2.25 *H 11/12/16 1125: Cortisol AM Sample 11.8 Microbiology 11/12 1214 URINE ROUT: Legionella Antigen - COMP 11/12 1214 URINE ROUT: Streptococcus pneumoniae Antigen (M - COMP 11/12 1214 URINE ROUT: Urine Culture - RECD
--- NOTE | 2016-11-13 08:36 | Cons- Infect Disease ---
General Information and HPI Consulting Request Date of Consult: 11/13/16 Requested By: ANGIE COBURN,TWILA Reason for Consult: Rule out sepsis Source of Information: patient History of Present Illness: This is a 56-year-old man with a history of diabetes, hypertension, coronary artery disease, status post MO, cardiomyopathy, status post CABG, complicated by multiorgan failure requiring dialysis for 2 years, followed by a right cadaveric kidney transplant 6 years prior to admission, maintained on CellCept, Prograf and prednisone, peripheral vascular disease, status post right BKA, with poor healing, and left TMA, with a mostly healed wound with intermittent drainage, with the development of a gangrenous left fifth finger 6 weeks prior to admission, treated in [facility] with partial amputation and multiple antibiotics including Vancomycin, Linezolid, Doxycycline and, for the past 10 days, Daptomycin for osteomyelitis, apparently secondary to MRSA, status post revision of the right BKA stump and completion of the left fifth finger amputation on the day of admission, admitted on November 11, within hours after surgery, after developing a fever to 103 associated with chills, nausea, vomiting, dizziness and weakness. On admission he was afebrile. Laboratory data revealed a white blood cell count of 20,000, BUN/creatinine 42 and 2 (were 37 and 1.3 on the morning of admission), with normal liver enzymes, troponin 0.52. Chest x-ray revealed a hazy left basilar opacity. He was begun on Clindamycin and Ciprofloxacin. On November 12 the Clindamycin was discontinued and his Daptomycin was resumed. He has remained afebrile since admission and feels much improved with no complaints at this time. He does note dysuria over the past 10 days prior to admission, with no back pain. He denies any cough, chest pain or shortness of breath prior to admission or presently. He has had no abdominal pain or diarrhea. This morning 1 blood culture was reported positive for gram-negative rods. Allergies/Medications Allergies: Coded Allergies: nut - unspecified (Severe, DIARRHEA 11/12/16) ULCERS IN THROAT cefepime (HIVES 11/09/16) darbepoetin sherley (From ARANESP (IN ALBUMIN)) (throat swells 11/09/16) linezolid (blurry vision 11/09/16) metformin (GI DISTRESS 11/09/16) ondansetron (From ZOFRAN ( HYDROCHLORIDE)) (irregular heartbeat 11/09/16) sulfamethoxazole (From BACTRIM) (KIDNEY ISSUES 11/10/16) trimethoprim (From BACTRIM) (KIDNEY ISSUES 11/10/16) Home Med List: Aspirin (Ecotrin*) 325 MG TABLET. 1 TAB PO DAILY heart health (Reported) Cholecalciferol (Vitamin D3) (Vitamin D) 2,000 UNIT CAPSULE 1 CAP PO DAILY HEALTH SUPPLEMENT (Reported) Mycophenolate Mofetil 500 MG TABLET 2 TAB PO BID IMMUNOSUPPRESSANT (Reported) Pantoprazole Sodium (Protonix) 20 MG TABLET. 1 TAB PO DAILY GERD (Reported) Prednisone 5 MG TABLET 1 TAB PO DAILY INFLAMMATION (Reported) Tacrolimus 1 MG CAPSULE 2 CAP PO BID ANTI-REJECTION (Reported) Past History Travel History [facility] past [facility] day No Medical History Neurological: NONE EENT: NONE Cardiovascular: CAD, cardiomyopathy, hypertension, myocardial infarction, peripheral vascular disease Respiratory: NONE Gastrointestinal: irritable bowel syndrome Hepatic: NONE Renal: chronic kidney disease, renal transplant, OLD CLOTTED AVF L ARM Musculoskeletal: osteomyelitis of the left fifth finger Psychiatric: NONE Endocrine: diabetes Blood Disorders: NONE History of MRSA: No History of VRE: No History of CDIFF: No Isolation History: Standard Surgical History Surgical History: CABG, right BKA, renal transplant, left TMA Family History Relations & Conditions If Any: FATHER Atrial fibrillation Relation not specified for: Hypertension in mother Psychosocial History Where Do You Live? Home Who Do You Live With? child Services at Home: Nursing Smoking Status: Former Smoker ETOH Use: denies use Illicit Drug Use: denies illicit drug use Functional Ability ADLs Independent: dressing, eating. Needs Assist: toileting, bathing. Ambulation: WHEELCHAIR IADLs Independent: finances, food prep, telephone, medication admin. Needs Assist: shopping, housework, transportation. Employment History Employment: PROFESSOR Review of Systems Review of Systems All Other Systems: Reviewed and Negative Exam & Diagnostic Data Last 24 Hrs of Vital Signs/I&O Vital Signs Date Time Temp Pulse Resp B/P B/P Pulse O2 O2 Flow FiO2 Mean Ox Delivery Rate 11/13 0107 99.5 59 20 136/60 97 Room Air 11/12 1540 98.9 74 20 140/62 95 Room Air 11/12 0900 98.3 72 20 110/60 92 Room Air Intake & Output 11/13 1600 11/13 0800 11/13 0000 Intake Total 700 290 Output Total 775 Balance 700 -485 Intake, IV 700 290 Output, Urine 775 Physical Exam Other Physical Findings: He is awake and alert in no acute distress. He is afebrile. Skin reveals no rash. HEENT exam is negative. Neck is supple with no adenopathy. Lungs decreased breath sounds at the left base. Heart regular rhythm with no murmur. Abdomen is soft, nontender with positive bowel sounds. Back no CVA tenderness. Extremities left upper extremity nonfunctioning fistula; right BKA dressing intact; left TMA wound clean, with no erythema or active drainage; left hand wound clean, with no erythema or drainage; midline catheter in the right upper extremity with no inflammation at the site. Neuro is without focality. Last 24 Hours of Lab Results: Laboratory Tests 11/13 11/12 11/12 0100 2002 1705 Chemistry Sodium (137 - 145 mmol/L) 133 L Potassium (3.5 - 5.1 mmol/L) 4.7 Chloride (98 - 107 mmol/L) 104 Carbon Dioxide (22 - 30 mmol/L) 20 L Anion Gap (5 - 16) 9 BUN (9 - 20 mg/dL) 41 H Creatinine (0.7 - 1.2 mg/dL) 2.1 H Estimated GFR (>60 ml/min) 33 L BUN/Creatinine Ratio (7 - 25 %) 19.5 Troponin I (<0.11 ng/ml) 1.94 *H 2.38 *H Coagulation APTT (25 - 37 SEC) 31 11/12 11/12 11/12 1215 1215 1125 Chemistry Troponin I (<0.11 ng/ml) 2.25 *H Toxicology Urine Opiates Screen (>2000 NG/ML) < 100.00 Methadone Screen (>300 NG/ML) < 40 Barbiturate Screen (>200 NG/ML) < 60 Ur Phencyclidine Scrn (>25 NG/ML) < 6.00 Amphetamines Screen (>1000 NG/ML) < 100 U Benzodiazepines Scrn (>200 NG/ML) > 800 H Urine Cocaine Screen (>300 NG/ML) < 50 Urine Cannabis Screen (>50 NG/ML) < 5.00 Urines Urine Color (YEL,AMB,STR) YEL Urine Clarity (CLEAR) CLEAR Urine pH (5.0 - 8.0) 6.0 Ur Specific [place] (1.001 - 1.035) 1.020 Urine Protein (NEG,<30 MG/DL) 100 H Urine Ketones (NEG) NEG Urine Nitrite (NEG) NEG Urine Bilirubin (NEG) NEG Urine Urobilinogen (0.1 - 1.0 EU/dl) 0.2 Ur Leukocyte Esterase (NEG) SMALL H Ur Microscopic SEDIMENT EXAMINED Urine RBC (0 - 5 /HPF) RARE Urine WBC (0 - 2 /HPF) 25-50 H Urine Mucus (FEW,NONE) FEW Urine Hemoglobin (NEG) TRACE-INTACT H Ur Random Creatinine (mg/dL) 124.6 Ur Random Sodium (30 - 90 mmol/L) 36 Ur Random Potassium (mmol/L) 27.7 Fraction Sodium Excret (<1% %) 0.4 Urine Glucose (N MG/DL) 250 H 11/12 1125 Chemistry Cortisol AM Sample (4.46 - 22.7 ug/dL) 11.8 Last 24 Hours of Ashish Results: Blood cultures November 12 one bottle positive for gram-negative rods, suggestive of Proteus Urine culture November 12 negative Urine strep pneumo antigen and Legionella antigen November 12 negative OR culture November 11 right BKA stump negative after 1 day Diagnostic Data Recent Imaging Findings: Chest x-ray November 11 hazy left basilar opacity Assessment/Plan Assessment/Plan Impression: This is a 56-year-old man with diabetes, peripheral vascular disease, coronary artery disease, status post CABG, end-stage renal disease, status post cadaveric renal transplant 6 years prior to admission and maintained on immunosuppressive therapy since, status post right BKA and left TMA, with nonhealing wounds, with the development of gangrene and osteomyelitis of the left fifth finger 6 weeks prior to admission, treated with multiple antibiotics, most recently Daptomycin, admitted on November 11 within hours after a right BKA revision and completion of the left fifth finger amputation with fevers, chills, nausea, vomiting, dizziness and weakness, found to be afebrile with a leukocytosis, worsening renal failure and increased troponin and found this morning to have a positive blood culture for gram-negative rods. The source of his gram-negative rods is unclear at this time. Possible sources include the urinary tract, given his urinary complaints and pyuria, though his urine culture is so far negative, the midline catheter, though there is no inflammation at the site, the abdomen, given his nausea and vomiting, though his abdominal exam is benign, the right BKA, left TMA or the left hand, particularly as the fever developed postop, though his wounds appear relatively clean, or the lungs, given the vague left lower lobe density on chest x-ray, though his respiratory status appears stable. He can be continued on Ciprofloxacin pending final cultures. The role of Daptomycin at this time is unclear as if all the infected bone from the left hand has been removed he should not require a prolonged course of antibiotics, but this can be discussed further with his ID physician, Dr. Bryant, at [facility]. The possibility of osteomyelitis of his right BKA and/or his left TMA stump, however , must be considered and this can also be discussed with Dr. Bryant. Of note he did have a bone scan 6 months prior to admission that was negative. Other issues include his elevated creatinine, which may be secondary to sepsis but is concerning given his renal transplant, and his elevated troponin, suggestive of an acute MO. Suggestion: 1. Contact isolation for history of MRSA 2. Repeat blood cultures 2 today 3. Follow-up final cultures 4. Will discuss the role of Daptomycin and evaluation for osteomyelitis of the right BKA and left TMA with his ID physician at [facility] 5. Further management of his troponin per Cardiology 6. Close monitoring of his renal function 7. Continue Daptomycin, with reevaluation of his dose if his creatinine continues to increase 8. Continue Ciprofloxacin pending final cultures Consult Acknowledgment - Thank you for your consult request.
[2016-11-13 08:37] VITALS: BP 120/60
[2016-11-13 11:01] LABS: ABSOLUTE BASOPHIL COUNT 0 /CUMM (0.0-0.2); ABSOLUTE EOSINOPHIL COUNT 0.1 /CUMM (0.0-0.7); ABSOLUTE LYMPH COUNT 0.6 /CUMM (1.2-3.4); ABSOLUTE MONOCYTE COUNT 0.5 /CUMM (0.10-0.60); HEMATOCRIT 36.1 % (42-52); MEAN CORPUSCULAR HGB 26.9 PG (27.0-31.0); MEAN CORPUSCULAR HGB CONC 31.3 G/DL (33.0-37.0); MEAN CORPUSCULAR VOLUME 86.2 FL (80.0-94.0); MEAN PLATELET VOLUME 7.5 FL (7.4-10.4); PLATELET COUNT 181 /CUMM (130-400); RED BLOOD CELL CT 4.18 /CUMM (4.70-6.10)
--- NOTE | 2016-11-13 11:11 | PN- Housestaff ---
REA COBURN,[facility] 11/13/16 1111: Subjective Follow-up For: sepsis osteomyelitis nstemi Subjective: seen and examined, lying in bed in no acute distress, currently on IV heparin, patient had episode of bleeding from his RBKA stump, dressing changed bleeding controlled, will keep monitoring, H& h order for this eveing will f/u otherwise no complaints of chest pain, palpitation, dizziness. Review of Systems Constitutional: Reports: see HPI. Objective Last 24 Hrs of Vital Signs/I&O Vital Signs Date Time Temp Pulse Resp B/P B/P Pulse O2 O2 Flow FiO2 Mean Ox Delivery Rate 11/13 0855 94 Nasal 2.0L Cannula 11/13 0837 98.0 52 20 120/60 97 Room Air 11/13 0107 99.5 59 20 136/60 97 Room Air 11/12 1540 98.9 74 20 140/62 95 Room Air Intake & Output 11/13 1600 11/13 0800 11/13 0000 Intake Total 700 290 Output Total 775 Balance 700 -485 Intake, IV 700 290 Output, Urine 775 Physical Exam General Appearance: Alert, Oriented X3, Cooperative, No Acute Distress Current Medications: Current Medications Sig/Margaret Start time Last Medication Dose Route Stop Time Status Admin Acetaminophen 650 MG Q4 PRN 11/12 0430 AC 11/12 PO 0439 Aspirin 81 MG DAILY 11/13 1000 AC 11/13 PO 0915 Cholecalciferol 2,000 IU DAILY 11/12 1000 AC 11/13 PO 0915 Ciprofloxacin 500 MG BID 11/12 1405 AC 11/13 PO 11/16 1404 0915 Clopidogrel Bisulfate 75 MG DAILY 11/13 1000 AC 11/13 PO 0915 Clopidogrel Bisulfate 75 MG DAILY 11/13 1000 CAN PO Clopidogrel Bisulfate 300 MG ONCE ONE 11/12 1845 CAN PO 11/12 1846 Daptomycin 400 MG DAILY@11/12 2000 AC 11/12 IV 2038 Heparin Sodium 2,500 UNIT ONCE ONE 11/13 1230 DC 11/13 (Porcine) IV 11/13 1231 1354 Heparin Sodium 5,550 UNIT BOLUS ONE 11/13 0250 DC 11/13 (Porcine) IV 11/13 0251 0430 Heparin Sodium 4,000 UNIT ONE ONE 11/12 1615 DC 11/12 (Porcine) IV 11/12 1616 1829 Heparin Sodium 25,000 UNIT Q24H 11/12 1500 AC 11/13 (Porcine) IV 1352 Sodium Chloride 500 ML Heparin Sodium/ 25,000 UNIT Q24H 11/12 1845 CAN Dextrose IV Dextrose/Water 500 ML Hydromorphone HCl 0.5 MG Q4P PRN 11/12 0430 AC 11/12 IV 0855 Insulin Aspart 15 UNITS TIDAC 11/12 1700 AC 11/13 SC 1215 Insulin Aspart 0 TIDAC 11/12 0800 AC 11/13 SC 1215 Insulin Detemir 25 UNITS 2200 11/12 2200 AC 11/12 SC 2132 Insulin Detemir 55 UNITS DAILY 11/12 1000 AC 11/13 SC 0828 Mycophenolate Mofetil 750 MG BID 11/12 2200 AC 11/13 PO 0915 Nitroglycerin 0.2 MG DAILY 11/13 1418 AC TOP Non-Formulary 0 SEE ADMIN CRITERIA 11/12 1415 DC Medication ANY Polyethylene Glycol 17 GM DAILY PRN 11/12 0430 AC PO Prednisone 15 MG DAILY 11/12 1210 AC 11/13 PO 0915 Senna/Docusate Sodium 1 TAB BID PRN 11/12 043 AC PO Sodium Chloride 1,000 ML .[id number] 11/12 0245 AC 11/13 IV 0644 Tacrolimus 1 MG AT BEDTIME 11/12 2200 AC 11/12 PO 2131 Tacrolimus 1.5 MG DAILY 11/12 1345 AC 11/13 PO 0918 Last 24 Hrs of Lab/Ashish Results Last 24 Hrs of Labs/Mics: Laboratory Tests 11/13/16 0939: Anion Gap 8, Estimated GFR 37 L, BUN/Creatinine Ratio 20.5, APTT 50 H, CBC w Diff MAN DIFF ORDERED, RBC 4.18 L, MCV 86.2, MCH 26.9 L, RDW 16.0 H, MPV 7.5, Gran % 87.9 H, Lymphocytes % 6.1 L, Monocytes % 5.2, Eosinophils % 0.7, Basophils % 0.1, Absolute Granulocytes 9.0 H, Absolute Lymphocytes 0.6 L, Absolute Monocytes 0.5, Absolute Eosinophils 0.1, Absolute Basophils 0, Platelet Estimate VERIFIED BY SMEAR, Anisocytosis 1+, PUBS MCHC 31.3 L 11/13/16 0100: Troponin I 1.94 *H, APTT 31 11/12/16 2002: Anion Gap 9, Estimated GFR 33 L, BUN/Creatinine Ratio 19.5 11/12/16 1705: Troponin I 2.38 *H Microbiology 11/13 1105 BLOOD: Blood Culture - RECD 11/13 0939 BLOOD: Blood Culture - RECD Assessment/Plan Assessment: 56-year-old gentleman with past medical history significant for insulin- dependent type 2 diabetes mellitus, end-stage renal disease initially on dialysis now status post right cadaveric kidney transplant in 2010 on mycophenolate, tacrolimus and prednisone, history of IA, Takotsubu, right below knee amputation with recurrent infection [stump revision in 2012, 2014], left foot partial amputation in January 2016, brought to ED for evaluation of fever and rigor after revsion of right BKA and I&D left hand from another institution. Labs pertinent for leukocytosis with left shift no significant bandemia for, elevated creatinine 2.0/BUN 42, troponin 0.52, chest x-ray showed hazy left basilar opacity. Admitted to the telemetry floor for the following issues: Sepsis: Meets sepsis criteria (increased white count, hypotension and increase heart rate, possible source of left hand osteomyelitis versus pneumonia) Given two liter bolus to which his blood pressure responded, will continue on maintenance fluids cautiously avoid fluid overload He was initially on daptomycin for his left hand osteomyelitis One-time dose of clindamycin and Cipro was given in ED Follow-up blood cultures, urine culture/ UA and lactic acid His hypotension could also be secondary to adrenal insufficiency as he has been on chronic steroid. We are holding his prednisone for now. If he continues to be hypotensive, might require stress dose steriods. We will continue to monitor closely. * We'll continue with ciprofloxacin for now pending cultures Osteomyelitis: left hand osteomyelitis s/p I/D Currently on daptomycin. ID has already seen the patient, will follow-up recommendations. Her knowledge continue daptomycin pending scheduled with ID department at [facility]. Elevated troponin NSTEMI vs demand ischemia secondary to kidney insufficiency admitt to tele floor for continuous scientist propagator trend EKG and trop 2.38>>1.94, and started on IV heparin drip, he had episodes of bleeding from his right lower yesterday stump, will monitor H&H closely continues to bleed IV heparin drip might have to be discontinued. has history of takotsubo in the past, f/up echo continue ASA cardio consult pre-she did, will follow-up recommendations. Renal failure gene on ckd possible secondary to pre-renal azotemia gentle IV hydration will hold immunosuppressive meds of mycophenolate and tacrolimus in view of his current infection neprology consult placed will follow-up recommendations Patient is DNR/DNI. Problem List: 1. Osteomyelitis 2. Diabetes 3. DNR (do not resuscitate) 4. DNI (do not intubate) 5. Renal failure 6. Sepsis 7. Elevated troponin 8. Pneumonia Pain Ratin Pain Location: None Pain Goal: Remain pain free Pain Plan: mild pain pathway Tomorrow's Labs & Rationales: CBC for H&H monitoring and platelets monitoring insetting of sepsis and IV heparin BEP for lites monitoring NILE LUCIA MD 11/13/16 1259: Attending MD Review Statement Attending Statement Attending MD Statement: examined this patient, discuss w/resident/PA/SR. MEDIA MANAGER, agreed w/resident/PA/SR. 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, with past medical history significant for IDDM, hypertension, IA, cardiomyopathy, CABG, status post right cadaveric kidney transplant in 2010 and on multiple immunosuppressive therapy, CKD stage III, gangrene of the right foot status post right below-knee amputation with chronic ulcers, left foot partial amputation and recently developed osteomyelitis of the left small finger status post incision and drainage currently on IV daptomycin for the past 1-1/2 weeks and debridement and division of the right below-knee amputation on November 11 by the plastic surgeon has been admitted to the floor with fever, rigors or vomiting and productive cough and is currently being treated for possible pneumonia and osteomyelitis. Patient was started yesterday on IV heparin for possible inferior IA along with aspirin and Plavix. Patient had a small os from his left finger along with opposing from the right below knee stump. Wound was thoroughly checked, there was no active bleeding, tight packing was done. Discussed in detail with the rotating equipment engineer. We'll recheck the wound and his H&H, if it continues to post and H&H is dropping, we will stop the IV heparin. We'll get an echo and will keep him off of beta blockers because of his bradycardia and second-degree AV block and nitrates given no chest pain and low blood pressure. ID has followed up with the patient as well and I started the patient on contact isolation for history of MRSA, repeat blood cultures and suggested to discuss with his ID physician at [facility] about the role and length of getting daptomycin for osteomyelitis. We'll continue him on ciprofloxacin pending his cultures and will continue his transplant medications. Nephrology is also on board and even suggested of transferring the patient back to [facility] for further management if his renal function continues to get worse given his history of transplanted kidney.
[2016-11-13 11:13] LABS: PTT 50 SEC (25-37)
[2016-11-13 11:14] LABS: BASOPHIL % 0.1 % (0.0-2.0); EOSINOPHIL % 0.7 % (0-5); GRANULOCYTE % 87.9 % (42.2-75.2)
[2016-11-13 11:20] LABS: WHITE BLOOD CELL COUNT 10.2 /CUMM (4.8-10.8)
--- NOTE | 2016-11-13 13:56 | PN- Cardiology ---
Subjective Subjective: * No chest discomfort, shortness of breath, lightheadedness or palpitations. * sinus rhythm * cardiac enzymes are trending down * some minor bleeding noted from the patient's recent surgical sites Objective Vital Signs and I&Os Vital Signs Date Time Temp Pulse Resp B/P B/P Pulse O2 O2 Flow FiO2 Mean Ox Delivery Rate 11/13 0855 94 Nasal 2.0L Cannula 11/13 0837 98.0 52 20 120/60 97 Room Air 11/13 0107 99.5 59 20 136/60 97 Room Air 11/12 1540 98.9 74 20 140/62 95 Room Air Intake & Output 11/13 1600 11/13 0800 11/13 0000 11/12 1600 11/12 0800 11/12 0000 Intake Total 812 762 9533 720 Output Total 775 600 Balance 700 -485 480 720 Intake, IV 700 290 600 600 Intake, Oral 480 120 Number 1 Bowel Movements Output, Urine 775 600 Patient 204 lb 204 lb 240 lb Weight Weight Reported by Patient Reported by Patient Measurement Method Physical Exam: General: WD/ overweight male in NAD; alert and oriented x 3 Neck: no JVD, no carotid bruit Heart: RRR w/o murmur Lungs: clear bilaterally Ext: no edema, Right BKA, left hand bandaged Assessment/Plan Assessment/Plan * This patient has clear evidence of myocardial ischemia but is nevertheless gratifyingly pain free. In consideration of his absence of pain and renal insufficiency I would opt for medical therapy. Continue IV heparin to complete 24 hours with the understanding that it should be stopped if there is any recurrent significant bleeding. At present the patient appears to be tolerating the IV heparin after being rebandaged with pressure dressings. Continue aspirin and Plavix. Begin NTG patch at 0.2mg/24 hours for improved coronary perfusion. His BP appears to be stable. I would hold off on beta blockade due to baseline bradycardia. * This patient had a transient low normal blood pressure following surgery without any definite evidence of sepsis. The patient likely was mildly dehydrated. His elevated WBC count has returned to normal. * No ACEI due to borderline BP and increased creatinine. * Obtain an echocardiogram to assess his EF. Continue telemetry? Yes
[2016-11-13 16:34] VITALS: BP 139/56
[2016-11-13 19:06] LABS: PTT 42 SEC (25-37)
[2016-11-13 19:55] LABS: ABSOLUTE BASOPHIL COUNT 0 /CUMM (0.0-0.2); ABSOLUTE EOSINOPHIL COUNT 0 /CUMM (0.0-0.7); ABSOLUTE GRANULOCYTE CT 8.7 /CUMM (1.4-6.5); ABSOLUTE LYMPH COUNT 0.6 /CUMM (1.2-3.4); ABSOLUTE MONOCYTE COUNT 0.5 /CUMM (0.10-0.60); BASOPHIL % 0 % (0.0-2.0); EOSINOPHIL % 0.2 % (0-5); MEAN CORPUSCULAR HGB 27.5 PG (27.0-31.0); MEAN CORPUSCULAR HGB CONC 32.2 G/DL (33.0-37.0); MEAN CORPUSCULAR VOLUME 85.4 FL (80.0-94.0); MEAN PLATELET VOLUME 7.6 FL (7.4-10.4); PLATELET COUNT 183 /CUMM (130-400); RED BLOOD CELL CT 4.22 /CUMM (4.70-6.10); WHITE BLOOD CELL COUNT 9.7 /CUMM (4.8-10.8)
[2016-11-13 20:22] LABS: GRANULOCYTE % 89.1 % (42.2-75.2)
[2016-11-13 23:36] VITALS: BP 132/60
[2016-11-14 03:41] LABS: ABSOLUTE BASOPHIL COUNT 0 /CUMM (0.0-0.2); ABSOLUTE EOSINOPHIL COUNT 0.1 /CUMM (0.0-0.7); ABSOLUTE GRANULOCYTE CT 6.3 /CUMM (1.4-6.5); ABSOLUTE LYMPH COUNT 0.8 /CUMM (1.2-3.4); ABSOLUTE MONOCYTE COUNT 0.5 /CUMM (0.10-0.60); BASOPHIL % 0.3 % (0.0-2.0); EOSINOPHIL % 0.9 % (0-5); GRANULOCYTE % 82.5 % (42.2-75.2); HEMATOCRIT 37.5 % (42-52); MEAN CORPUSCULAR HGB 27.4 PG (27.0-31.0); MEAN CORPUSCULAR VOLUME 85.6 FL (80.0-94.0); MEAN PLATELET VOLUME 7.4 FL (7.4-10.4); PLATELET COUNT 177 /CUMM (130-400); RBC DISTRIBUTION WIDTH 16.2 % (11.5-14.5); RED BLOOD CELL CT 4.37 /CUMM (4.70-6.10); WHITE BLOOD CELL COUNT 7.6 /CUMM (4.8-10.8)
[2016-11-14 06:29] LABS: PTT 83 SEC (25-37)
--- NOTE | 2016-11-14 07:23 | PN- Housestaff ---
MAHENDRA COBURN,AURY 11/14/16 0723: Subjective Follow-up For: Sepsis Osteomyelitis NSTEMI Right BKA Left 5th finger amputation JEAN on CKD Subjective: Patient seen and examined. He is seen lying flat in bed resting comfortably. He appears to be in no acute distress. He reports feeling well and [place] any new subjective complaints. He does otherwise comment that he left hand is still having some small amount of bleeding after "someone removed a stitch". Otherwise he denies fever, chills, chest pain/discomfort, lightheadedness/ dizziness, shortness of breath, nausea, vomiting, diarrhea. Review of Systems Constitutional: Reports: see HPI. Objective Last 24 Hrs of Vital Signs/I&O Vital Signs Date Time Temp Pulse Resp B/P B/P Pulse O2 O2 Flow FiO2 Mean Ox Delivery Rate 11/14 1721 98.3 66 16 164/78 94 Room Air 11/14 0908 98.5 73 15 161/77 93 Room Air 11/14 0000 Room Air 11/13 2336 97.8 58 18 132/60 93 Room Air Intake & Output 11/14 1600 11/14 0800 11/14 0000 Intake Total 1350 1064 1254 Output Total 1999 Balance -650 1064 1254 Intake, IV 700 864 904 Intake, Oral 650 200 350 Number 1 0 0 Bowel Movements Output, Urine 1999 Physical Exam General Appearance: Alert, Oriented X3, Cooperative, No Acute Distress Other Physical Findings: General- well developed, well nourished middle aged man in no acute distress HEENT- NCAT, PERRL, EOMI, anicteric sclera Chest- S1, S2 w/o m/g/r Lung- CTA bilaterally Abdomen- Soft, obese, mildly distended, bowel sounds intact Neuro- Awake and alert, CN II - XII grossly intact Ext-normal pulses, no cyanosis/clubbing/edema -LUE:hand wrapped in gauze with scant amount of blood drainage, fifth digit amputation -RLE: right BKA with stump wrapped in an SARITA bandage without obvious drainage Current Medications: Current Medications Sig/Margaret Start time Last Medication Dose Route Stop Time Status Admin Acetaminophen 650 MG Q4 PRN 11/12 0430 AC 11/12 PO 0439 Aspirin 81 MG DAILY 11/13 1000 AC 11/14 PO 1055 Cholecalciferol 2,000 IU DAILY 11/12 1000 AC 11/14 PO 1055 Ciprofloxacin 500 MG BID 11/12 1405 AC 11/14 PO 11/16 1404 2020 Clopidogrel Bisulfate 75 MG DAILY 11/13 1000 AC 11/14 PO 1055 Daptomycin 400 MG DAILY@11/12 2000 AC 11/14 IV 202 Heparin Sodium 5,000 UNIT .STK-MED ONE 11/13 2217 DC (Porcine) IV 11/13 2218 Heparin Sodium 25,000 UNIT Q24H 11/12 1500 DC 11/14 (Porcine) IV 0414 Sodium Chloride 500 ML Hydromorphone HCl 0.5 MG Q4P PRN 11/12 0430 AC 11/12 IV 0855 Insulin Aspart 15 UNITS TIDAC 11/12 1700 AC 11/14 SC 1827 Insulin Aspart 0 TIDAC 11/12 0800 AC 11/14 SC 1827 Insulin Detemir 25 UNITS 22011/12 2200 AC 11/14 SC 2020 Insulin Detemir 55 UNITS DAILY 11/12 1000 AC 11/14 SC 1057 Mycophenolate Mofetil 750 MG BID 11/12 220 AC 11/14 PO 2019 Nitroglycerin 0.2 MG DAILY@11/13 2200 AC 11/14 TOP 2020 Polyethylene Glycol 17 GM DAILY PRN 11/12 0430 AC PO Prednisone 15 MG DAILY 11/12 1210 AC 11/14 PO 1055 Senna/Docusate Sodium 1 TAB BID PRN 11/12 0430 AC PO Sodium Chloride 1,000 ML .[id number] 11/12 0245 AC 11/14 IV 1527 Tacrolimus 1 MG AT BEDTIME 11/12 220 AC 11/14 PO 202 Tacrolimus 1.5 MG DAILY 11/12 1345 AC 11/14 PO 1056 Last 24 Hrs of Lab/Ashish Results Last 24 Hrs of Labs/Mics: Laboratory Tests 11/14/16 1715: APTT 53 H 11/14/16 0315: Anion Gap 9, Estimated GFR 42 L, BUN/Creatinine Ratio 21.8, APTT 83 H, CBC w Diff NO MAN DIFF REQ, RBC 4.37 L, MCV 85.6, MCH 27.4, RDW 16.2 H, MPV 7.4, Gran % 82.5 H, Lymphocytes % 10.2 L, Monocytes % 6.1, Eosinophils % 0.9, Basophils % 0.3, Absolute Granulocytes 6.3, Absolute Lymphocytes 0.8 L, Absolute Monocytes 0.5, Absolute Eosinophils 0.1, Absolute Basophils 0, PUBS MCHC 32.0 L Assessment/Plan Assessment: Patient continues to do well and denies any problems. He remains afebrile with resolved leukocytosis/bandemia while on antibiotics. He is continued on heparin drip/aspirin/plavix for elevated troponins, he denies any chest pain. His blood pressure remains stable on a mildly higher dose of his steroids, tomorrow they will be reduced to his home dose. He is an anticipated discharge to home tomorrow with instruction to follow up with his transplant surgeon and his infectious disease specialist after discharge. Problem List: #Sepsis 2/2 Osteomyeltis #Acute inferior wall STEMI #IDDM #Hx of ESRD on HD s/p renal transplant, on tacrolimus/mycophenolate/prednisone #Hx of CA #Takotsubos cardiomyopathy #Right BKA #Left fifth digit amputation 2/ osteomyelitis Plan: -Telemetry -S/P revision of right stump & left hand -Monitor H&H -Conservative medical management for STEMI -No ACEi due to increased creatinine -Heparin Drip -Plavix 300mg ONCE follow by 75mg Daily -Aspirin/NTG -Daptomycin 400mg IV Daily -Ciprofloxacin 500mg PO Daily -Tacrolimus/Mycophenolate/Prednisone -Novolog/Levemir/Fingersticks -NS @ 75mL/hr until creatinine normalizes -Echocardiogram -Cardiology following -ID following -Nephrology following -DVT PPx -DNR/DNI Problem List: 1. Osteomyelitis Pain Ratin Pain Location: None Pain Goal: Remain pain free Pain Plan: See assessment Tomorrow's Labs & Rationales: CBC/BEP SANDRA SAEZ MD 11/14/16 1339: Attending MD Review Statement Attending Statement Attending MD Statement: examined this patient, discuss w/resident/PA/GROUP HOME SUPERVISOR, agreed w/resident/PA/GROUP HOME SUPERVISOR, reviewed EMR data (avail), discussed with nursing, discussed with case mgmt, amended to note Attending Assessment/Plan: Patient seen and examined. Resting comfortably not in acute distress. No issues overnight. He remains afebrile hemodynamically stable. Bleeding from the stump site has subsided. His hemoglobin level remained stable. His renal function has improved since prior elevated levels on Monday. Dressing over his left hand and right stump intact with no evidence of gross bleeding. Recommendations: -Follow-up CT abdomen and pelvis scheduled for today. -His imaging was negative and repeat blood cultures remain negative, follow-up with the ID service for antibiotic recommendations. -Notify his providers at [facility] about his admission here to [facility]. -Given his renal history, and asymptomatic cardiac status, no plans for cardiac catheterization at this point. Continuing conservative medical management, with aspirin and Plavix, nitroglycerin. He is not on a beta luis due to baseline bradycardia. He is not on an SARITA inhibitor due to renal dysfunction.
--- NOTE | 2016-11-14 07:53 | ECHOCARDIOGRAM REPORT ---
MAXI KENDRICK Age: 56 : 1960 Gender: M Exam Date: 11/13/2016 11:13 Exam Location: 1 [address] Ht (in): 73 Wt (lb): 204 BSA: 2.20 BP: / Ordering Physician: TARSHA ARRIETA MD Referring Physician: Mann Dailey MD, PhD Technologist: Rachel Alamo [facility] Room Number: [id number] Indications: STRUCTURAL HEART DISEASE Rhythm: Sinus Technical Quality: good FINDINGS Left Ventricle Normal left ventricular size with mild left ventricular hypertrophy. Abnormal systolic function with severe inferior and inferoseptal hypokinesis. Normal left ventricular diastolic filling pattern for age. The ejection fraction is visually estimated at 55%. Right Ventricle The right ventricle is normal in size and function. Right Atrium The right atrium is normal in size. Left Atrium The left atrium is severely enlarged. The interatrial septum is intact. Mitral Valve The mitral valve is normal in structure and function. There is mild mitral regurgitation. Aortic Valve Structurally normal aortic valve without significant sclerosis or stenosis. There is trace aortic regurgitation. Tricuspid Valve The tricuspid valve is normal in structure and function. There is mild tricuspid regurgitation. Pulmonary artery systolic pressure is moderately elevated to 46mmHg. Pulmonic Valve Structurally normal pulmonic valve. There is mild pulmonic regurgitation. Pericardium Normal pericardium without effusion. No pleural effusion. Great Vessels Normal aortic root dimension. The aortic arch and great vessels are well seen and are normal. CONCLUSIONS 1. Normal EF of 55% with severe inferior and inferoseptal hypokinesis. 2. Mild left ventricular hypertrophy. 3. Severe left atrial enlargment. 4. Mild mitral regurgitation. 5. Mild tricuspid regurgitation. 6. Trace aortic regurgitation. 7. Mild pulmonic regurgitation. 8. Moderate pulmonary hypertension. Mann Dailey M.D. (Electronically Signed) Final Date: 14 November 2016 07:52 MEASUREMENTS (Male / Female) Normal Values 2D ECHO LV Diastolic Diameter PLAX 5.8 cm 4.2 - 5.9 / 3.9 - 5.3 cm LV Systolic Diameter PLAX 4.1 cm 2.1 - 4.0 cm LV Fractional Shortening PLAX 29.3 % 25 - 46 % LV Ejection Fraction 2D Teich 55.4 % IVS Diastolic Thickness 1.5 cm LVPW Diastolic Thickness 1.4 cm LV Relative Wall Thickness 0.5 RV Internal Dim ED PLAX 2.9 cm 1.9 - 3.8 cm LVOT Diameter 2.3 cm Aortic Root Diameter 3.2 cm LA Systolic Diameter LX 5.3 cm 3.0 - 4.0 / 2.7 - 3.8 cm LA Volume 77.0 cm 18 - 58 / 22 - 52 cm Ascending Aorta Diameter 3.2 cm DOPPLER AV Peak Velocity 121.0 cm/s AV Peak Gradient 5.9 mmHg AV Mean Velocity 84.8 cm/s AV Mean Gradient 3.0 mmHg AV Velocity Time Integral 27.0 cm LVOT Peak Velocity 78.5 cm/s LVOT Peak Gradient 2.5 mmHg LVOT Mean Velocity 56.8 cm/s LVOT Mean Gradient 1.0 mmHg LVOT Velocity Time Integral 17.4 cm LVOT Stroke Volume 72.3 cm AV Area Cont Eq vti 2.7 cm AV Area Cont Eq pk 2.7 cm MV Peak Velocity 108.0 cm/s MV Peak Gradient 4.7 mmHg MV Mean Velocity 57.4 cm/s MV Mean Gradient 2.0 mmHg Mitral E Point Velocity 118.0 cm/s MV PHT Velocity 110.0 cm/s MV Deceleration Bullitt 305.0 cm/s MV Pressure Half Time 108.2 ms MV Area PHT 2.0 cm MV Deceleration Time 153.0 ms TR Peak Velocity 300.0 cm/s TR Peak Gradient 36.0 mmHg Right Atrial Pressure 10.0 mmHg Pulmonary Artery Systolic Pressu 46.0 mmHg Right Ventricular Systolic Press 46.0 mmHg PV Peak Velocity 85.9 cm/s PV Peak Gradient 3.0 mmHg PV Mean Velocity 58.7 cm/s PV Mean Gradient 2.0 mmHg PV Velocity Time Integral 19.5 cm LV E' Lateral Velocity 8.0 cm/s Mitral E to LV E' Lateral Ratio 14.7 LV E' Septal Velocity 3.5 cm/s Mitral E to LV E' Septal Ratio 33.9
[2016-11-14 09:08] VITALS: BP 161/77
--- NOTE | 2016-11-14 10:54 | PN- Infect Dx ---
Subjective Subjective: Afebrile on steroids without complaints. He has no further nausea or vomiting. He does report occasional abdominal discomfort which he attributes to his irritable bowel syndrome. He denies any dysuria. He notes an occasional cough, which he states was productive of brown sputum after admission, but which has improved. Objective Last 24 Hrs of Vital Signs/I&O Vital Signs Date Time Temp Pulse Resp B/P B/P Pulse O2 O2 Flow FiO2 Mean Ox Delivery Rate 11/14 0908 98.5 73 15 161/77 93 Room Air 11/14 0000 Room Air 11/13 2336 97.8 58 18 132/60 93 Room Air 11/13 1634 98.0 54 18 139/56 94 Room Air Intake & Output 11/14 1600 11/14 0800 11/14 0000 Intake Total 1064 1254 Output Total Balance 1064 1254 Intake, IV 864 904 Intake, Oral 200 350 Number 0 0 Bowel Movements Physical Exam Other Physical Findings: He appears comfortable in no acute distress Lungs decreased breath sounds at the left base Heart regular rhythm with no murmur Abdomen is obese, soft, nontender with positive bowel sounds Back no CVA tenderness Extremities left hand wounds clean, with minimal erythema around the left fifth metatarsal, with no drainage; left palm incision clean, with no erythema; right BKA stump incision clean, with no erythema or drainage; left TMA stump clean, with no erythema and minimal drainage on the Band-Aid; midline in the right upper extremity with no inflammation at the site Results Last 24 Hours of Lab Results: Laboratory Tests 11/14 11/13 0315 1910 Chemistry Sodium (137 - 145 mmol/L) 140 Potassium (3.5 - 5.1 mmol/L) 4.8 Chloride (98 - 107 mmol/L) 111 H Carbon Dioxide (22 - 30 mmol/L) 20 L Anion Gap (5 - 16) 9 BUN (9 - 20 mg/dL) 37 H Creatinine (0.7 - 1.2 mg/dL) 1.7 H Estimated GFR (>60 ml/min) 42 L BUN/Creatinine Ratio (7 - 25 %) 21.8 Coagulation APTT (25 - 37 SEC) 83 H Hematology CBC w Diff NO MAN DIFF REQ NO MAN DIFF REQ WBC (4.8 - 10.8 /CUMM) 7.6 9.7 RBC (4.70 - 6.10 /CUMM) 4.37 L 4.22 L Hgb (14.0 - 18.0 G/DL) 12.0 L 11.6 L Hct (42 - 52 %) 37.5 L 36.0 L MCV (80.0 - 94.0 FL) 85.6 85.4 MCH (27.0 - 31.0 PG) 27.4 27.5 RDW (11.5 - 14.5 %) 16.2 H 16.0 H Plt Count (130 - 400 /CUMM) 177 183 MPV (7.4 - 10.4 FL) 7.4 7.6 Gran % (42.2 - 75.2 %) 82.5 H 89.1 H Lymphocytes % (20.5 - 51.1 %) 10.2 L 6.0 L Monocytes % (1.7 - 9.3 %) 6.1 4.7 Eosinophils % (0 - 5 %) 0.9 0.2 Basophils % (0.0 - 2.0 %) 0.3 0 L Absolute Granulocytes (1.4 - 6.5 /CUMM) 6.3 8.7 H Absolute Lymphocytes (1.2 - 3.4 /CUMM) 0.8 L 0.6 L Absolute Monocytes (0.10 - 0.60 /CUMM) 0.5 0.5 Absolute Eosinophils (0.0 - 0.7 /CUMM) 0.1 0 Absolute Basophils (0.0 - 0.2 /CUMM) 0 0 PUBS MCHC (33.0 - 37.0 G/DL) 32.0 L 32.2 L 11/13 1824 Coagulation APTT (25 - 37 SEC) 42 H Last 24 Hours of Ashish Results: Blood cultures November 12 one bottle positive for Proteus sensitive to all antibiotics tested Urine culture November 12 negative Blood cultures 2 November 13 negative so far Assessment/Plan Impression: Overall improved with temperatures remaining normal and white blood cell count now normal on Daptomycin and Ciprofloxacin, with Proteus isolated from the initial blood culture. Possible sources of sepsis include the urinary tract, with pyuria, though his urine culture is negative, the abdomen, with nausea and vomiting on admission and vague GI symptoms prior to admission, though his abdominal exam is benign, a transient bacteremia related to his recent surgery, though his wounds look relatively clean, the midline catheter, though the site looks clean and his repeat cultures are so far negative, and the lungs, with his report of a productive cough, though his chest x-ray is unimpressive and his respiratory status is stable. Have discussed with Plastic surgery, who feels all the infected bone has been removed from his left hand and that he has no residual osteomyelitis; therefore he should not require a prolonged course of Daptomycin, and have placed a call to his infectious disease physician at [facility], Dr. Bryant to discuss this further. The possibility of osteomyelitis of the right BKA stump or the left TMA stump must be considered and this will also be discussed. Of note he did have a negative bone scan 6 months prior to admission. His course has also been complicated by an apparent ND, for which he remains on Heparin. His renal function appears to have returned to his baseline range. Suggestion: 1. CT of the abdomen and pelvis without IV contrast 2. Will discuss the role of Daptomycin and need for evaluation for osteomyelitis of the right BKA and left TMA with his ID physician at [facility] 3. Further management of his troponin per Cardiology 4. Continue Daptomycin pending above 5. Continue Ciprofloxacin
[2016-11-14 17:21] VITALS: BP 164/78
--- NOTE | 2016-11-14 17:52 | PN- Cardiology ---
Subjective Subjective: * No symptoms of chest discomfort or shortness of breath. * No arrhythmias * creatinine improved to 1.7 Objective Vital Signs and I&Os Vital Signs Date Time Temp Pulse Resp B/P B/P Pulse O2 O2 Flow FiO2 Mean Ox Delivery Rate 11/14 1721 98.3 66 16 164/78 94 Room Air 11/14 0908 98.5 73 15 161/77 93 Room Air 11/14 0000 Room Air 11/13 2336 97.8 58 18 132/60 93 Room Air Intake & Output 11/14 1600 11/14 0800 11/14 0000 11/13 1600 11/13 0800 11/13 0000 Intake Total 1064 1254 1400 700 290 Output Total 550 775 Balance 1064 1254 850 700 -485 Intake, IV 125 392 3099 700 290 Intake, Oral 200 350 400 Number 0 0 Bowel Movements Output, Urine 550 775 Physical Exam: General: WD/ overweight male in NAD; alert and oriented x 3 Neck: no JVD, no carotid bruit Heart: RRR w/o murmur Lungs: clear bilaterally Ext: no edema, Right BKA, left hand bandaged Assessment/Plan Assessment/Plan * This patient has clear evidence of myocardial ischemia but is nevertheless gratifyingly pain free. In consideration of his absence of pain and renal insufficiency I would opt for medical therapy. Stop IV heparin at this time. Continue aspirin and Plavix. Continue NTG patch at 0.4mg/24 hours for improved coronary perfusion and to improve his blood pressure. I would hold off on beta blockade due to baseline bradycardia. * This patient had a transient low normal blood pressure following surgery without any definite evidence of sepsis. The patient likely was mildly dehydrated. His elevated WBC count has returned to normal. * No ACEI due to borderline BP and increased creatinine. * Overall normal EF on echo with inferior and inferoseptal hypokinesis. * Would anticipate discharge tomorrow morning since patient now appear stable on current drug regimen. Recommend follow up in the office in one week. Continue telemetry? Yes
--- NOTE | 2016-11-14 18:20 | CT SCAN REPORT ---
EXAMINATION: CT ABDOMEN AND PELVIS WITHOUT CONTRAST CLINICAL INFORMATION: Bacteremia. Evaluate for abscess. COMPARISON: CT scan of the abdomen and pelvis dated 10/01/[address] scan of the abdomen dated 05/21/2012. Renal ultrasound dated 10/02/2016. CT scan of the chest dated 06/17/2016. TECHNIQUE: Multidetector volumetric imaging was performed from the superior aspect of the liver through the pubic symphysis. Sagittal and coronal reformatted images were obtained on the technologist workstation. DLP: 1342.52 mGy-cm. FINDINGS: LUNG BASES: Small bilateral pleural effusions are seen, new from 10/01/2016. Included lung bases demonstrate increased subpleural reticulation and thickening of the central airways and mild volume loss in the left lung base. Findings are unchanged dating back to 05/10/2012. Tiny 0.3 cm nodules in the left lower lobe (series 2, image 2) and in the right lower lobe (series 2, image 6) are again visualized, both likely containing faint calcification, most consistent with benign granulomas, unchanged dating back to 05/10/2012. LIVER, GALLBLADDER, AND BILIARY TREE: The liver is normal in size and shape. The liver parenchyma is diffusely low in attenuation, consistent with hepatic steatosis. No focal hepatic lesion on noncontrast imaging. No biliary ductal dilatation is present. The gallbladder is surgically absent with several cherelle seen in the gallbladder fossa. PANCREAS, SPLEEN, ADRENAL GLANDS: The pancreas is diffusely atrophic and otherwise unremarkable. The spleen and adrenal glands are unremarkable on noncontrast imaging. KIDNEYS AND URETERS: A transplant kidney is seen in the right lower quadrant. There is a 1.4 cm diameter low-attenuation mass in the upper pole of the transplant kidney, consistent with a cyst (series 602, image 73), unchanged from 10/01/2016. Transplant kidney is otherwise unremarkable. No significant perinephric collections are seen. No hydronephrosis is seen. The hoh kidneys are bilaterally atrophic. No hydronephrosis, hydroureter, or calculi seen. No perinephric stranding. In the mid right kidney, a partially exophytic 1.3 cm diameter hyperdense cyst is seen with mean attenuation values of 65 Hounsfield units, unchanged from 10/01/2016 and slightly larger compared to 0.8 cm on 05/10/2012. This was shown to represent a benign-appearing cyst with internal debris on prior renal ultrasound from 10/02/2016. Additional tiny 0.6 cm low-attenuation mass is seen in the mid right kidney (series 2, image 40), too small to further characterize, but unchanged from 10/01/2016 and better seen and minimally larger compared to 05/10/2012. This is most consistent with a benign cyst. BLADDER: Well-distended and unremarkable. GASTROINTESTINAL TRACT: The small and large bowel are unremarkable. The appendix is unremarkable. ABDOMINAL WALL: No significant hernia is appreciated. LYMPH NODES: Abnormal enlarged lymph node is seen in the right lower paraesophageal region (series 2, image 1), incompletely imaged, measuring 1.8 cm in short axis versus 1.0 cm on 06/17/2016. Other smaller subcentimeter sized periesophageal lymph nodes are also seen, new from prior study. Small subcentimeter sized periceliac axis, lesser sac, peripancreatic lymph nodes are seen without pathologic enlargement. No intra-abdominal free fluid or focal collection. VASCULAR: Dense atherosclerotic calcifications of the coronary arteries and multiple visceral arteries, including both renal arteries are seen. PELVIC VISCERA: Unremarkable. OSSEOUS STRUCTURES: Old healed fracture deformities of lower lateral right sixth rib is again seen. Diffuse osteopenia is noted. Moderate vertebral spondylosis is seen in the lower thoracic spine. Median sternotomy wires are partially included. IMPRESSION: 1. No acute intra-abdominal or pelvic process is seen. Specifically, no intra-abdominal abscess or focal inflammatory changes noted. 2. New small bilateral pleural effusions are noted, superimposed upon chronic appearing changes in the lung bases bilaterally. Bilateral benign-appearing granulomas are also seen. 3. Abnormal adenopathy is seen in the lower chest, paraesophageal region. Findings are incompletely assessed and of uncertain significance, possibly related representing reactive changes given interval development since 10/01/2016. Clinical correlation requested. 4. Hepatic steatosis. 5. Status post post cholecystectomy with no evidence of biliary dilatation. 6. Atrophic kidneys with benign appearing cysts in the right kidney. Transplant kidney in right lower quadrant also shows a small cyst. 7. Extensive atherosclerotic vascular calcifications.
[2016-11-14 18:47] LABS: PTT 53 SEC (25-37)
--- NOTE | 2016-11-14 22:16 | Patient Discharge Instructions ---
Discharge Instructions General Discharge Information Special Instructions: Take Ciprofloxacin as directed. Continue to take Daptomycin as previously directed. Follow up with Dr. Jennings after discharge. Schedule an appointment with your transplant surgeon Dr. Boucher for further evaluation of your kidney function. Continue Tacrolimus, Mycophenolate, and Prednisone. Follow up with your brake lining curer within one week after discharge. Start Taking Plavix as directed. Schedule an appointment with your surgeon Dr. Hooks in two weeks for evaluation of your hand and right leg and suture removal. Acute Coronary Syndrome Inclusion Criteria At DC or during hospital stay patient has or had the following: ACS DIAGNOSIS Yes Discharge Core Measures Meds if any: Prescribed or Continued at Discharge SARITA/ARB if EF <40% No Aspirin Yes Beta-Michel No Statin No Meds if any: NOT Prescribed or Continued at Discharge No SARITA/ARB d/t Renal Failure/Azotemia No Beta-Michel d/t Bradycardia Congestive Heart Failure Inclusion Criteria At DC or during hospital stay patient has or had the following: CHF DIAGNOSIS No Discharge Core Measures Meds if any: Prescribed or Continued at Discharge Meds if any: NOT Prescribed or Continued at Discharge Cerebrovascular accident Inclusion Criteria At DC or during hospital stay patient has or had the following: CVA/TIA Diagnosis No Discharge Core Measures Meds if any: Prescribed or Continued at Discharge Meds if any: NOT Prescribed or Continued at Discharge Venous thromboembolism Inclusion Criteria VTE Diagnosis No VTE Type NONE VTE Confirmed by (Test) NONE Discharge Core Measures - Per Current guidelines, there needs to be overlap - treatment for the first 5 days of Warfarin therapy. - If discharged on Warfarin prior to 5 days of - overlap therapy, the patient will need to be - assessed for post discharge needs including - *Post discharge parental anticoagulation - *Warfarin and/or parental anticoagulation education - *Follow up date to check INR post discharge At least 5 days overlap therapy as Inpatient No Meds if any: Prescribed or Continued at Discharge Note: Overlap Therapy is Warfarin and Anticoagulant Meds if any: NOT Prescribed or Continued at Discharge
[2016-11-14] MEDS ORDERED: CIPRO500 M1 PO (22:18)
[2016-11-14] MEDS ORDERED: PLAVIX75 M1 PO (22:18)
[2016-11-15 00:21] VITALS: BP 166/62
--- NOTE | 2016-11-15 07:26 | PN- Housestaff ---
MAHENDRA COBURN,AURY 11/15/16 0726: Subjective Follow-up For: Sepsis Osteomyelitis NSTEMI Right BKA Left 5th finger amputation JEAN on CKD Tele-Events Since Last Visit: SB HR 40s/50s HR 31 0400 11/15/16 Subjective: Patient seen and examined. He is seen lying flat in bed resting comfortably. He appears to be in no acute distress. He reports feeling fine and sleeping well, he is requesting to be discharged to home this morning so that he may "attend a meeting". Otherwise he denies any fever, chills, chest pain, shortness of breath, nausea, vomiting, diarrhea. Review of Systems Constitutional: Reports: see HPI. Objective Last 24 Hrs of Vital Signs/I&O Vital Signs Date Time Temp Pulse Resp B/P B/P Pulse O2 O2 Flow FiO2 Mean Ox Delivery Rate 11/15 0828 98.6 72 20 158/74 94 11/15 0021 99.0 60 18 166/62 94 Room Air 11/15 0000 Room Air 11/14 1721 98.3 66 16 164/78 94 Room Air 11/14 0908 98.5 73 15 161/77 93 Room Air Intake & Output 11/15 1600 11/15 0800 11/15 0000 Intake Total 650 400 Output Total Balance 650 400 Intake, Oral 650 400 Physical Exam General Appearance: Alert, Oriented X3, Cooperative, No Acute Distress Other Physical Findings: General- well developed, well nourished middle aged man in no acute distress HEENT- NCAT, PERRL, EOMI, anicteric sclera Chest- S1, S2 w/o m/g/r Lung- CTA bilaterally Abdomen- Soft, obese, mildly distended, bowel sounds intact Neuro- Awake and alert, CN II - XII grossly intact Ext-normal pulses, no cyanosis/clubbing/edema -LUE:hand wrapped in gauze with scant amount of blood drainage, fifth digit amputation -RLE: right BKA with stump wrapped in an SARITA bandage without obvious drainage Current Medications: Current Medications Sig/Margaret Start time Last Medication Dose Route Stop Time Status Admin Acetaminophen 650 MG Q4 PRN 11/12 0430 AC 11/12 PO 0439 Aspirin 81 MG DAILY 11/13 1000 AC 11/14 PO 1055 Cholecalciferol 2,000 IU DAILY 11/12 1000 AC 11/14 PO 1055 Ciprofloxacin 500 MG BID 11/12 1405 AC 11/14 PO 11/16 1404 2020 Clopidogrel Bisulfate 75 MG DAILY 11/13 1000 AC 11/14 PO 1055 Daptomycin 400 MG DAILY@11/12 2000 AC 11/14 IV 2022 Heparin Sodium 25,000 UNIT Q24H 11/12 1500 DC 11/14 (Porcine) IV 0414 Sodium Chloride 500 ML Hydromorphone HCl 0.5 MG Q4P PRN 11/12 0430 AC 11/12 IV 0855 Insulin Aspart 15 UNITS TIDAC 11/12 1700 AC 11/15 SC 0848 Insulin Aspart 0 TIDAC 11/12 0800 AC 11/15 SC 0847 Insulin Detemir 25 UNITS 2200 11/12 2200 AC 11/14 SC 2020 Insulin Detemir 55 UNITS DAILY 11/12 1000 AC 11/14 SC 1057 Mycophenolate Mofetil 750 MG BID 11/12 2200 AC 11/14 PO 2019 Nitroglycerin 0.2 MG DAILY@11/13 2200 AC 11/14 TOP 2020 Polyethylene Glycol 17 GM DAILY PRN 11/12 0430 AC PO Prednisone 5 MG DAILY 11/15 1000 AC PO Prednisone 15 MG DAILY 11/12 1210 DC 11/14 PO 1055 Senna/Docusate Sodium 1 TAB BID PRN 11/12 0430 AC PO Sodium Chloride 1,000 ML .[id number] 11/12 0245 AC 11/14 IV 1527 Tacrolimus 1 MG AT BEDTIME 11/12 220 AC 11/14 PO 202 Tacrolimus 1.5 MG DAILY 11/12 1345 AC 11/14 PO 1056 Last 24 Hrs of Lab/Ashish Results Last 24 Hrs of Labs/Mics: Laboratory Tests 11/15/16 0744: Anion Gap 10, Estimated GFR 45 L, BUN/Creatinine Ratio 21.3, CBC w Diff NO MAN DIFF REQ, RBC 4.33 L, MCV 84.9, MCH 26.8 L, RDW 15.8 H, MPV 7.7, Gran % 77.5 H, Lymphocytes % 13.6 L, Monocytes % 7.5, Eosinophils % 1.0, Basophils % 0.4, Absolute Granulocytes 5.2, Absolute Lymphocytes 0.9 L, Absolute Monocytes 0.5, Absolute Eosinophils 0.1, Absolute Basophils 0, PUBS MCHC 31.6 L 11/14/16 1715: APTT 53 H Assessment/Plan Assessment: Patient remains afebrile without leukocytosis/bandemia while on daptomycin/ ciprofloxacin. He is to be discharged to home today with instruction to continue his daptomycin and previously instructed, a prescription for a two week total course of Ciprofloxacin, and instruction to follow up with his various providers and detailed in his discharge paperwork. Problem List: #Sepsis 2/2 Osteomyeltis, on Daptomycin/Ciprofloxacin #Acute inferior wall STEMI #IDDM, on Novolog/Levemir #Hx of ESRD on HD s/p renal transplant, on tacrolimus/mycophenolate/prednisone #Hx of [place] #Takotsubos cardiomyopathy #Right BKA #Left fifth digit amputation 2/2 osteomyelitis Plan: -Telemetry -S/P revision of right stump & left hand -Monitor H&H -Conservative medical management for STEMI -No ACEi due to increased creatinine -Heparin Drip -Plavix 300mg ONCE follow by 75mg Daily -Aspirin/NTG -Daptomycin 400mg IV Daily -Ciprofloxacin 500mg PO Daily -Tacrolimus/Mycophenolate/Prednisone -Novolog/Levemir/Fingersticks -NS @ 75mL/hr until creatinine normalizes -Echocardiogram -Cardiology following -ID following -Nephrology following -DVT PPx -DNR/DNI Problem List: 1. Osteomyelitis Pain Ratin Pain Location: None Pain Goal: Remain pain free Pain Plan: See assessment Tomorrow's Labs & Rationales: None NADJA COBURN,RANDALOumou 11/15/16 1145: Attending MD Review Statement Attending Statement Attending MD Statement: examined this patient, discuss w/resident/PA/CHEMICAL MANAGER, agreed w/resident/PA/CHEMICAL MANAGER, reviewed EMR data (avail), discussed with nursing, discussed with case mgmt, amended to note Attending Assessment/Plan: Patient seen and examined. Resting comfortably and not in any acute distress. This morning he denies chest pain or shortness of breath. Denies palpitations. He is afebrile and hemodynamically stable. Overnight on telemetry he has been bradycardic with heart rate as low as 30s. He is not on any rate control medications. Echocardiogram shows hypokinesis in the inferior wall. This was discussed in detail with consult to toggle press folder and feeder Mann Dailey MD. His recommendations at that patient may be discharged home with outpatient follow- up. Patient is not been started on a beta luis due to his bradycardia. He is not been started on an SARITA inhibitor due to his acute kidney injury. This was explained in detail to the patient. Due to his renal transplant history he will not be proceeding with cardiac catheterization He will continue on daptomycin for his osteomyelitis and ciprofloxacin for his bacteremia. He will follow-up with the ID service at [facility] for further recommendations.
[2016-11-15 08:28] VITALS: BP 158/74
[2016-11-15 08:49] LABS: ABSOLUTE BASOPHIL COUNT 0 /CUMM (0.0-0.2); ABSOLUTE EOSINOPHIL COUNT 0.1 /CUMM (0.0-0.7); ABSOLUTE GRANULOCYTE CT 5.2 /CUMM (1.4-6.5); ABSOLUTE LYMPH COUNT 0.9 /CUMM (1.2-3.4); ABSOLUTE MONOCYTE COUNT 0.5 /CUMM (0.10-0.60); BASOPHIL % 0.4 % (0.0-2.0); GRANULOCYTE % 77.5 % (42.2-75.2); HEMATOCRIT 36.7 % (42-52); MEAN CORPUSCULAR HGB 26.8 PG (27.0-31.0); MEAN CORPUSCULAR HGB CONC 31.6 G/DL (33.0-37.0); MEAN CORPUSCULAR VOLUME 84.9 FL (80.0-94.0); MEAN PLATELET VOLUME 7.7 FL (7.4-10.4); PLATELET COUNT 176 /CUMM (130-400); RBC DISTRIBUTION WIDTH 15.8 % (11.5-14.5); RED BLOOD CELL CT 4.33 /CUMM (4.70-6.10); WHITE BLOOD CELL COUNT 6.7 /CUMM (4.8-10.8)
[2016-11-15] MEDS ORDERED: CIPRO500 M1 PO (10:22)
[2016-11-15] MEDS ORDERED: PLAVIX75 M1 PO (10:22)
[2016-11-15] MEDS ORDERED: DAPTOMYCIN500 MG IV (10:37)
--- NOTE | 2016-11-15 13:55 | PN- Infect Dx ---
Subjective Subjective: Afebrile without complaints Objective Last 24 Hrs of Vital Signs/I&O Vital Signs Date Time Temp Pulse Resp B/P B/P Pulse O2 O2 Flow FiO2 Mean Ox Delivery Rate 11/15 0828 98.6 72 20 158/74 94 11/15 0021 99.0 60 18 166/62 94 Room Air 11/15 0000 Room Air 11/14 1721 98.3 66 16 164/78 94 Room Air Intake & Output 11/15 1600 11/15 0800 11/15 0000 Intake Total 650 400 Output Total Balance 650 400 Intake, Oral 650 400 Physical Exam Other Physical Findings: He appears comfortable in no acute distress Extremities left hand and right BKA dressings intact; left TMA stump with no inflammation; midline in the right upper extremity with no inflammation at the site Results Last 24 Hours of Lab Results: Laboratory Tests 11/15 11/14 0744 1715 Chemistry Sodium (137 - 145 mmol/L) 139 Potassium (3.5 - 5.1 mmol/L) 4.6 Chloride (98 - 107 mmol/L) 108 H Carbon Dioxide (22 - 30 mmol/L) 21 L Anion Gap (5 - 16) 10 BUN (9 - 20 mg/dL) 34 H Creatinine (0.7 - 1.2 mg/dL) 1.6 H Estimated GFR (>60 ml/min) 45 L BUN/Creatinine Ratio (7 - 25 %) 21.3 TSH &T3 &Free T4 Intrp (0.27 - 4.20 uIU/mL) 3.990 Coagulation APTT (25 - 37 SEC) 53 H Hematology CBC w Diff NO MAN DIFF REQ WBC (4.8 - 10.8 /CUMM) 6.7 RBC (4.70 - 6.10 /CUMM) 4.33 L Hgb (14.0 - 18.0 G/DL) 11.6 L Hct (42 - 52 %) 36.7 L MCV (80.0 - 94.0 FL) 84.9 MCH (27.0 - 31.0 PG) 26.8 L RDW (11.5 - 14.5 %) 15.8 H Plt Count (130 - 400 /CUMM) 176 MPV (7.4 - 10.4 FL) 7.7 Gran % (42.2 - 75.2 %) 77.5 H Lymphocytes % (20.5 - 51.1 %) 13.6 L Monocytes % (1.7 - 9.3 %) 7.5 Eosinophils % (0 - 5 %) 1.0 Basophils % (0.0 - 2.0 %) 0.4 Absolute Granulocytes (1.4 - 6.5 /CUMM) 5.2 Absolute Lymphocytes (1.2 - 3.4 /CUMM) 0.9 L Absolute Monocytes (0.10 - 0.60 /CUMM) 0.5 Absolute Eosinophils (0.0 - 0.7 /CUMM) 0.1 Absolute Basophils (0.0 - 0.2 /CUMM) 0 PUBS MCHC (33.0 - 37.0 G/DL) 31.6 L Last 24 Hours of Ashish Results: Blood cultures 2 November 13 negative Recent Imaging Studies: CT of the abdomen and pelvis without contrast November 14 reveals small bilateral pleural effusions; transplanted kidney in the right lower quadrant with no surrounding inflammation or hydronephrosis Assessment/Plan Impression: Doing well with temperatures and white blood cell count normal on Daptomycin and Ciprofloxacin, with Proteus isolated from one blood culture, with no obvious source. The CT of the abdomen and pelvis did not reveal any inflammation around the transplanted kidney or any other intra-abdominal process, and his urine culture was negative. A transient bacteremia from his recent surgery could be considered, though his wounds look relatively clean. The midline catheter is another potential source, but there is no inflammation at the site and his repeat cultures are negative. Have discussed with Plastic surgery, who feels all the infected bone has been removed from his left hand and that he has no residual osteomyelitis; therefore he should not require a prolonged course of Daptomycin. Have discussed this with his infectious disease physician at [facility], Dr. Bryant, who concurs. His renal function appears to have returned to his baseline. Suggestion: 1. Would continue Daptomycin for 3 more days, at which point can discontinue and remove the midline 2. Continue Ciprofloxacin for 10 more days to complete a two-week course of treatment
--- NOTE | 2016-11-18 14:05 | Discharge Summary ---
Visit Information Visit Dates Admission Date: 11/12/16 Discharge Date: 11/15/16 Hospital Course Course Attending Physician: SANDRA SAEZ M.D Primary Care Physician: JAZZY YEUNG MD Consulting Request: 1 Consulting Specialty: Cardiology Consulting Request: 2 Consulting Specialty: Infectious Disease Consulting Request: 3 Consulting Specialty: Nephrology Consulting Request: 4 Consulting Specialty: Plastic Surgery Hospital Course: 56 year old man with past medical history of insulin-dependent diabetes melltisu , ESRD previously on hemodialysis s/p renal tranplant now on Tacrolimus/ Mycophenolate/Prednisone, Takosubo's Cardiomyopathy, [place], and right BKA with recurrent infection, and left fifth digit amputation seen for evaluation and developing fever/rigors. Patient under an I&D of his left hand for which he was currently receiving treatment for osteomyelitis with intravenous daptomycin. He reportedly developed a fever of 103 at home with associated weakness, dizziness, and multiple episodes of non-bloody bilious vomiting. ED Course: -Vitals: Temp 97.2-99.5, HR 71-95, RR 18-20, BP 91-121/48-74, O2 93-96% on 2.0L -Significant Labs: -Studies: CXR- hazy left, basilar opacity suggestive of atelectasis vs pneumonia -Interventions: Clindamycin, 2L NS, Problem List: #Left Hand Osteomyelitis #Sepsis #Elevated Troponins #Acute Kidney Injury #History of renal transplant #IDDM Hospital Course: Patient was admitted to the telemetry floor for close monitoring due to his extensive cardiovascular history. Chest x-ray was concerning for a lobar pneumonia for which he received Clincamycin/Ciprofloxacin in the ED. Initial troponin was elevated for which a cardiology consult was placed. Patient's EKD ruled him in for an inferior wall NJ for which it was decided that he would be a poor candidate for a cardiac catheterization due to his history of renal transplant; he was treated medically with IV heparin, aspirin, and plavix. Beta- luis was held due to his borderline blood pressures. Patient met criteria for sepsis through leukocytosis and tachycardia with a suspected sourse of infection being his known left hand osteomyelitis. He was continued on his tacrolimus/mycophenolate, prednisone was increased to 15mg daily for three days. ID consult was placed for further optimization of his antibiotics regimen; he was continued on his previously prescribed Daptomycin regimen and started on ciprofloxacin; blood culture demonstrated growth of proteus mirabilius sensative to fluoroquinolones. Patient was discharged to home with a prescription for Ciprofloxacin and continued on his his daptomycin regimen and instructed to follow up with his ID physician Dr. Jennings. He was given a prescription for Plavix and instructed to follow up with his Electronic Warfare Linguist after one week for further evaluation of his blood pressure. He is to see his transplant surgeon to discuss his recent hospitalization and his plastic surgeon for his post-operative evaluation. Discharge/Follow-up: -Follow up with your infectious disease specialists Dr. Jennings for further management of your osteomyelitis -Take ciprofloxacin as directed, continue to take Daptomycin -Follow up with your cardioligst within one week, take Plavix as directed -Follow up with your plastic surgeon Dr. Hooks within two weeks for evaluation of your recent recent surgerical revision and suture removal Allergies: Coded Allergies: nut - unspecified (Severe, DIARRHEA 11/12/16) ULCERS IN THROAT cefepime (HIVES 11/09/16) darbepoetin sherley (From ARANESP (IN ALBUMIN)) (throat swells 11/09/16) linezolid (blurry vision 11/09/16) metformin (GI DISTRESS 11/09/16) ondansetron (From ZOFRAN ( HYDROCHLORIDE)) (irregular heartbeat 11/09/16) sulfamethoxazole (From BACTRIM) (KIDNEY ISSUES 11/10/16) trimethoprim (From BACTRIM) (KIDNEY ISSUES 11/10/16) Significant Procedures: SERVICE DATE: 11/11/16 EXAM TYPE: RAD - XRY-PORTABLE CHEST XRAY IMPRESSION: Hazy left basilar opacity could represent atelectasis or pneumonia. SERVICE DATE: 11/13/16- EXAM TYPE: CARD - ECHOCARDIOGRAM CONCLUSIONS 1. Normal EF of 55% with severe inferior and inferoseptal hypokinesis. 2. Mild left ventricular hypertrophy. 3. Severe left atrial enlargment. 4. Mild mitral regurgitation. 5. Mild tricuspid regurgitation. 6. Trace aortic regurgitation. 7. Mild pulmonic regurgitation. 8. Moderate pulmonary hypertension. SERVICE DATE: 11/14/16- EXAM TYPE: CAT - CT ABD & PELVIS W/O IV CONTRAS IMPRESSION: 1. No acute intra-abdominal or pelvic process is seen. Specifically, no intra-abdominal abscess or focal inflammatory changes noted. 2. New small bilateral pleural effusions are noted, superimposed upon chronic appearing changes in the lung bases bilaterally. Bilateral benign-appearing granulomas are also seen. 3. Abnormal adenopathy is seen in the lower chest, paraesophageal region. Findings are incompletely assessed and of uncertain significance, possibly related representing reactive changes given interval development since 10/01/2016. Clinical correlation requested. 4. Hepatic steatosis. 5. Status post post cholecystectomy with no evidence of biliary dilatation. 6. Atrophic kidneys with benign appearing cysts in the right kidney. Transplant kidney in right lower quadrant also shows a small cyst. 7. Extensive atherosclerotic vascular calcifications. Disposition Summary Disposition Principal Diagnosis: Osteomyelitis Sepsis Proteus Bacteremia STEMI Additional Diagnosis: JEAN Discharge Disposition: home or self care Discharge Instructions General Discharge Information Code Status: Do Not Resucitate/Intubat Patient's Diet: Diabetic Diet Patient's Activity: As per PT assessment Follow-Up Instructions/Appts: Take Ciprofloxacin as directed. Continue to take Daptomycin as previously directed. Follow up with Dr. Jennings after discharge. Schedule an appointment with your transplant surgeon Dr. Boucher for further evaluation of your kidney function. Continue Tacrolimus, Mycophenolate, and Prednisone. Follow up with your asphalt plant operator within one week after discharge. Start Taking Plavix as directed. Schedule an appointment with your surgeon Dr. Hooks in two weeks for evaluation of your hand and right leg and suture removal. Medications at Discharge Discharge Medications: Continue taking these medications: Tacrolimus (Tacrolimus) 1 MG CAPSULE 2 Capsule ORAL TWICE DAILY Qty = 60 Comments: Last Taken: 11/15/16 Time: 9:30 AM Mycophenolate Mofetil (Mycophenolate Mofetil) 500 MG TABLET 2 Tablet ORAL TWICE DAILY Qty = 120 Comments: Last Taken: 11/15/16 Time: 9:30 AM Prednisone (Prednisone) 5 MG TABLET 1 Tablet ORAL DAILY Comments: Last Taken: 11/15/16 Time: 9:30 AM Pantoprazole Sodium (Protonix) 20 MG TABLET. 1 Tablet ORAL DAILY Comments: NOT GIVEN IN HOSPITAL Cholecalciferol (Vitamin D3) (Vitamin D) 2,000 UNIT CAPSULE 1 Capsule ORAL DAILY Comments: Last Taken: 11/15/16 Time: 9:30 AM Aspirin (Ecotrin*) 325 MG TABLET. 1 Tablet ORAL DAILY Comments: Last Taken: 11/15/16 Time: 9:30 AM DAPTOmycin (DAPTOmycin) 500 MG VIAL 400 Milligram INTRAVEN DAILY Comments: Last Taken: 11/14/16 Time: 8 PM Start taking the following new medications: Ciprofloxacin HCl (Cipro) 500 MG TABLET 500 Milligram ORAL TWICE DAILY Qty = 21 No Refills Comments: Last Taken: 11/15/16 Time: 9:30 AM Clopidogrel Bisulfate (Plavix) 75 MG TABLET 75 Milligram ORAL DAILY Qty = 30 No Refills Instructions: . Comments: Last Taken: 11/15/16 Time: 9:30 AM Copies To: ANJANA COBURN,JAZZY Vásquez; Janak Boucher; MICAELA COBURN,ANIBAL ERWIN MD,JOHN Jones; HUSEYIN COBURN PhD,MARTHA Barboza Attending MD Review Statement Documenting Attending: SANDRA SAEZ M.D Other Findings: I have reviewed the discharge summaries.
== END 2016-11-15 11:30 | disposition home health service (06) | DRG 871 ==
LOC: ERH 22:30 → 1NO 11-12 01:17 → ERHI 11-12 01:17 → ENRESERV 11-12 01:39 → 1NO 11-12 03:48 → ENPENDDIS 11-15 09:55 → 1NO 11-15 11:30
PROVIDERS: Internal Medicine; Internal Medicine Interventional Cardiology; Pediatrics; Student in an Organized Health Care Education/Training Program; ADMIT Student in an Organized Health Care Education/Training Program
DX: A41.9 Sepsis, unspecified organism (principal); N17.0 Acute kidney failure with tubular necrosis; I21.19 ST elevation (STEMI) myocardial infarction involving other coronary artery of inferior wall; E87.2 Acidosis; Z94.0 Kidney transplant status; M86.642 Other chronic osteomyelitis, left hand; I51.81 Takotsubo syndrome; I25.2 Old myocardial infarction; Z89.511 Acquired absence of right leg below knee; Z89.432 Acquired absence of left foot; I25.10 Atherosclerotic heart disease of native coronary artery without angina pectoris; Z66 Do not resuscitate; E78.5 Hyperlipidemia, unspecified; E86.0 Dehydration; K21.9 Gastro-esophageal reflux disease without esophagitis; I73.9 Peripheral vascular disease, unspecified; Z95.1 Presence of aortocoronary bypass graft
CPT/HCPCS: 1NP; 84133; 84300; 36415; 74176; 80307; 81001; 82436; 82570; 87040; 87070; 87086; 87449; 87450; 93005; 93010; 93306; 99291; J0878; J1644; J3490; J7507; J7512; J7517

== ENCOUNTER → 2016-11-11 | Day surgery (SDC) | payer OTHER ==
[~2016-11-11] VITALS: Ht 185.4 cm; Wt 108.9 kg
[~2016-11-11] MED LIST: ASPIRIN EC325 M2 PO; ATORVASTATIN CA10 M1 PO; CIPRO500 M1 PO; DAPTOMYCIN500 MG IV; LANTUS SOL100 UNIT/1 SC; MEROPENEM1 G1 IV; MINITRAN1 EAC2 ACW; MYCOPHENOLATE500 M1 PO; NOVOLOG FL100 UNIT/1 SC; PLAVIX75 M1 PO; PREDNISONE5 M1 PO; PROGRAF0.5 MG PO; PROTONIX20 M1 PO; TACROLIMUS1 M1 PO; VITAMIN D2000 UNIT PO
--- NOTE | 2016-11-11 15:31 | Operative Report ---
Operative/Inv Procedure Report Surgery Date: 11/11/16 Name of Procedure: Revision right BKA Dictation left small including metacarpal. 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 Some protrusion of surgery for today as he has had a right BKA stump chronic wound that was discussed of quite some time ago before the patient scheduled follow-up. Debrided BKA to be revised today. Patient initially had a procedure Kelsi infection of the left small finger extended proximally into the palm of hand he has had incision and drainage left hand. We talked about difficulty with his right BKA. The patient has not used prosthetic since his amputation a few years ago. He was counseled that he might have the opportunity as regards in these wounds can be difficult since he is already a short residual proximal tibial. The risks of having a chronic open wound partial be needing revision to an AKA. Patient signed informed consent for both preprocedure procedures. He was taken to the operative supine on the table. Venodyne boot was placed on his remaining left leg and lymphovascular was established. Antibiotics were given. The patient is currently on antibiotics. Lower extremity and left upper extremity prepped and draped in sterile fashion. The radial pulse and an extra overgrowth of bone following amputation. The skin and causing a relative ischemia. Cardiolite was excised in elliptical fashion. The bony pulsating was attempted to be removed record for further. The entire incision was opened. Gentle dissection with periosteal level was done so. To avoid ischemic injury to the skin. Greene a bone shear was used to bring back to the success of bony overgrowth. Sent from the overgrowth. It was then re-elevated and advanced with layer of sutures.. There was minimal bleeding during the surgery. It was used. Left upper extremity was evaluated. He had multiple dehisced wound likely due to his partial closure and these were partially removed arm. Interpretation was performed at the distal hand the left small finger. Curettage was carried out in full thickness debridement of the edges was no active disease present but evidence of healing. The areas of fibrinous material skin edges cut back full- thickness. Amputation was completed at the metacarpal head of the metacarpal head was resected. Also irrigation with Triple Antibiotic was performed and closure somewhat loose was carried out of all incisions were approximately 11 cm right arm. Sterile dressings applied to both sites
== END ==
LOC: STS 02:10
DX: M87.845 Other osteonecrosis, left finger(s) (principal); L97.814 Non-pressure chronic ulcer of other part of right lower leg with necrosis of bone; T87.89 Other complications of amputation stump; Z89.511 Acquired absence of right leg below knee; N18.5 Chronic kidney disease, stage 5; E11.22 Type 2 diabetes mellitus with diabetic chronic kidney disease; E11.40 Type 2 diabetes mellitus with diabetic neuropathy, unspecified; Z94.0 Kidney transplant status; Z79.4 Long term (current) use of insulin; I25.810 Atherosclerosis of coronary artery bypass graft(s) without angina pectoris; I73.9 Peripheral vascular disease, unspecified; I12.0 Hypertensive chronic kidney disease with stage 5 chronic kidney disease or end stage renal disease
CPT/HCPCS: 87070; 87075; 88305; 88307; J1642; J2250

== ENCOUNTER 2016-11-25 11:40 | Inpatient (IN) | payer OTHER ==
[~2016-11-25] VITALS: Ht 185.4 cm; Wt 104.3 kg
[~2016-11-25 11:40] MED LIST changes: -ATORVASTATIN CA10 M1 PO; -LANTUS SOL100 UNIT/1 SC; -MEROPENEM1 G1 IV; -MINITRAN1 EAC2 ACW; -NOVOLOG FL100 UNIT/1 SC; -PROGRAF0.5 MG PO
--- NOTE | 2016-11-25 12:08 | ED GENERAL ADULT ---
History of Present Illness General Chief Complaint: General Adult Stated Complaint: CHILLS,NAUSEA,SIB HUSEYIN,SOB Source: patient, family, old records Exam Limitations: no limitations Vital Signs & Intake/Output Vital Signs & Intake/Output Vital Signs Date Time Temp Pulse Resp B/P B/P Pulse O2 O2 Flow FiO2 Mean Ox Delivery Rate 11/28 0800 Room Air 11/28 0753 97.6 57 14 130/70 97 Room Air 11/28 0000 Room Air 11/27 2340 97.3 50 12 120/80 95 Room Air 11/27 1645 98.0 56 16 110/70 97 Room Air ED Intake and Output 11/28 0000 11/27 1200 Intake Total 0 1000 Output Total Balance 2049 1000 Intake, IV 450 600 Intake, Oral 1600 400 Number 2 Bowel Movements Allergies Coded Allergies: nut - unspecified (Severe, SKIN ULCERATION, THROAT SWELLING 11/25/16) ULCERS IN THROAT cefepime (HIVES 11/25/16) darbepoetin sherley (From ARANESP (IN ALBUMIN)) (throat swells 11/09/16) linezolid (blurry vision 11/25/16) metformin (GI DISTRESS 11/25/16) ondansetron (From ZOFRAN ( HYDROCHLORIDE)) (irregular heartbeat 11/25/16) sulfamethoxazole (From BACTRIM) (KIDNEY ISSUES 11/25/16) trimethoprim (From BACTRIM) (KIDNEY ISSUES 11/25/16) grapefruit (DRUG INTERACTOINS 11/25/16) Reconcile Medications Aspirin (Ecotrin*) 325 MG TABLET.DR 1 TAB PO DAILY heart health (Reported) Cholecalciferol (Vitamin D3) (Vitamin D) 2,000 UNIT CAPSULE 1 CAP PO DAILY HEALTH SUPPLEMENT (Reported) Clopidogrel Bisulfate (Plavix) 75 MG TABLET 75 MG PO DAILY ANTI PLATELET . Insulin Aspart, Recombinant (Novolog Flexpen) 100 UNIT/ML INSULN.PEN 50 UNITS SC BID DIABETES (Reported) Insulin Glargine,Hum.rec.anlog (Lantus Solostar) 100 UNIT/ML (3 ML) INSULN.PEN 0 SC AD diabetes (Reported) 70 units in AM; 20 units at bedtime Mycophenolate Mofetil 500 MG TABLET 2 TAB PO BID IMMUNOSUPPRESSANT (Reported) Nitroglycerin (Minitran) 0.4 MG/HOUR PATCH.TD24 0.4 MG ACW DAILY CHEST PAIN ( Reported) Pantoprazole Sodium (Protonix) 20 MG TABLET.DR 1 TAB PO DAILY GERD (Reported) Prednisone 5 MG TABLET 1 TAB PO DAILY INFLAMMATION (Reported) Tacrolimus (Prograf) 0.5 MG CAPSULE 1 CAP PO QPM RENAL TRANSPLANT (Reported) Tacrolimus 1 MG CAPSULE 2 CAP PO BID ANTI-REJECTION (Reported) Triage Note: PT TO ED FROM DR. FONTANEZ'S OFFICE FOR FEVER, CHILLS, NAUSEA, VOMITING, SHAKING SINCE LAST NIGHT. PT CURRENTLY HAS STAPH AUREUS IN L HAND. HAD AN [place] A FEW WEEKS AGO. DENIES DIZZINESS, CHEST PAIN OR SOB. PT VERY SHAKY, PALE, DIAPHORETIC. PT TAKEN DIRECTLY TO ROOM 10 FOR EKG. Triage Nurses Notes Reviewed? yes Onset: Abrupt Duration: day(s): (2) Timing: recent history Injury Environment: home Severity: moderate, severe No Modifying Factors: none Associated Symptoms: SHAKES, CHILLS, HEADACHE, NAUSEA, VOMITING HPI: 56 year old male presents to the ER for chief complaint of nausea, vomiting, headache and shaking chills for the past 2 days. Today his visiting nurse evaluated him and told him to come to the ED. He has a rid sided midline catheter through which he has been receiving IV daptomycin which he administers himself. It appears to be clotted and there is no blood return from it. He is also status post left and and right stump plastic surgery by Dr. Erwin last week. He states the wounds are looking better. Past History Travel History Traveled to [place] past 21 day No Medical History Any Pertinent Medical History? see below for history Neurological: NONE EENT: NONE Cardiovascular: CAD, cardiomyopathy, hypertension, myocardial infarction, peripheral vascular disease Respiratory: NONE Gastrointestinal: irritable bowel syndrome, DIVERTICULITIS Hepatic: NONE Renal: chronic kidney disease, renal transplant, OLD CLOTTED AVF L ARM Musculoskeletal: osteomyelitis of the left fifth finger STAPH AUREUS L HAND Psychiatric: NONE Endocrine: DIABETES TYPE II Blood Disorders: NONE History of MRSA: Yes History of VRE: No History of CDIFF: No Surgical History Surgical History: CABG, right BKA renal transplant left TMA Psychosocial History Services at Home Nursing What is your primary language Greenlandic Tobacco Use: Never used Family History Family History, If Any: FATHER Atrial fibrillation Relation not specified for: Hypertension in mother Hx Contributory? No Review of Systems Review of Systems Constitutional: Reports: chills, fever, malaise. Physical Exam Physical Exam General Appearance: well developed/nourished, alert, awake, moderate distress, obese Head: atraumatic, normal appearance Eyes: Bilateral: PERRL, EOMI. Ears, Nose, Throat: normal pharynx, hearing grossly normal Neck: normal inspection, supple, full range of motion Respiratory: normal breath sounds, chest non-tender, no respiratory distress Cardiovascular: regular rate/rhythm Peripheral Pulses: 2+ radial (R), 2+ radial (L) Gastrointestinal: soft, obese, nontender Extremities: RIGHT BKA WITH INFECTION ON STUMP Neurologic/Psych: awake, alert, oriented x 3, normal gait Skin: intact Core Measures ACS in differential dx? No CVA/TIA Diagnosis: No Severe Sepsis Present: Yes BC x2: Yes Lactic Acid x2: Yes IV ABX Broad Spectrum: Yes NS/LR Started: Yes Septic Shock Present: No ED Sepsis Exam Date of Focused Sepsis Exam: 11/25/16 Time of Focused Sepsis Exam: 1215 Sepsis Cardiac Exam: Tachycardia Sepsis Resp Exam: CTA Sepsis Cap Refill Exam: <2 Sec Sepsis Peripheral Pulse Exam: Normal Sepsis Peripheral Pulse Location: Radial Sepsis Skin Color Exam: Normal for Ethnicity Skin Temp/Moisture Exam: Hot/Diaphoretic Progress Differential Diagnoses I considered the following diagnoses in my evaluation of the patient: [line sepsis, osteomyelitis, cellulitis, abscess, bacteremia, endocarditis] Plan of Care: Orders Procedure Date/time Status Nothing by Mouth 11/29 B Active Consistent Carbohydrate 1 11/28 L Complete Nothing by Mouth 11/28 D Active Change service to 11/28 0752 Active CBC WITHOUT DIFFERENTIAL 11/28 06 Complete BASIC ELECTROLYTES PLUS BUN&CR 11/28 06 Complete XRY-FLUOROSCOPY,INDEPEND PROC 11/28 UNK Active Current Medications Sig/Margaret Start time Last Medication Dose Stop Time Status Admin Tacrolimus 1 MG AT BEDTIME 11/27 2200 AC 11/27 (Prograf 1MG) 2147 Acetaminophen 500 MG Q6P PRN 11/27 1100 AC 11/27 (Tylenol) 1114 Tacrolimus 1.5 MG DAILY 11/27 1000 AC 11/28 (Prograf 0.5MG) 0935 Insulin Detemir 70 UNITS 8AM 11/27 0800 AC 11/28 (Levemir) 0838 Mycophenolate Mofetil 500 MG BID 11/26 2200 AC 11/28 (CellCept) 0935 Insulin Detemir 20 UNITS 11/26 AC 11/27 (Levemir) 214 Insulin Aspart 10 UNITS 0800,1200,1700 11/26 1700 AC 11/28 (NovoLOG) 0838 Diclofenac Sodium 1 MAGALY Q6PRN PRN 11/26 1345 AC (Voltaren 1% Gel) Insulin Aspart 0 TIDAC/HS 11/26 1200 AC 11/27 (NovoLOG) 2145 Prednisone 5 MG DAILY 11/26 1113 AC 11/28 0935 Aspirin Buffered 325 MG DAILY 11/26 1000 AC 11/28 (Ecotrin) 0934 Clopidogrel Bisulfate 75 MG DAILY 11/26 1000 AC 11/28 (Plavix) 0935 Omeprazole 20 MG DAILY AC 11/26 0700 AC 11/28 (Prilosec) 0551 Meropenem 1 GM IQ8 11/26 0000 AC 11/28 (MEROPENEM) 0836 Heparin Sodium 5,000 UNIT Q8 11/25 2200 AC 11/28 (Porcine) 1319 Acetaminophen 1,000 MG Q6P PRN 11/25 1830 AC (Ofirmev) N/A 1 UNIT (No Carrier) Laboratory Tests 11/28/16 0644: Anion Gap 9, Estimated GFR 48 L, BUN/Creatinine Ratio 19.3 11/28/16 0628: CBC w Diff NO MAN DIFF REQ, RBC 4.29 L, MCV 85.0, MCH 27.5, RDW 16.8 H, MPV 7.6, Gran % 74.3, Lymphocytes % 16.1 L, Monocytes % 6.8, Eosinophils % 2.6, Basophils % 0.2, Absolute Granulocytes 5.2, Absolute Lymphocytes 1.1 L, Absolute Monocytes 0.5, Absolute Eosinophils 0.2, Absolute Basophils 0, PUBS MCHC 32.3 L labs, cultures x 2. Unable to draw culture from midline. Tip sent for CANDACE technique after midline removed as I suspect it may be a source of sepsis. Patient improved after fluids, tylenol ad ministration. 12:55 PM D/W DR BARLOW. ABX REGIMEN DISCUSSED - WILL ADMINISTER VANCOMYCIN, MEROPENEM. ([facility],GEE) Diagnostic Imaging: Viewed by Me: Radiology Read. Discussed w/RAD: Radiology Read. CXR Impression: PATIENT: MAXI KENDRICK JR PRESENT AGE: 56 PATIENT ACCOUNT NO: [id number] : 56 LOCATION: [facility] ORDERING PHYSICIAN: GEE RAMIREZ MD SERVICE DATE: 11/25/167 EXAM TYPE: RAD - XRY-PORTABLE CHEST XRAY EXAMINATION: XR PORTABLE CHEST CLINICAL INFORMATION: Fever and chills. COMPARISON: CXR from 11/11/2016. Abdomen CT from 11/14/2016. TECHNIQUE: Portable frontal view of the chest was obtained. FINDINGS: Lungs are hypoexpanded and there is mild interstitial prominence in lower lung zones, similar compared to 11/11/2016. Nonspecific linear opacities in the bases from mild atelectasis or possibly infiltrates, not appreciably changed from the prior exam. No new, focal airspace opacification. Small bilateral pleural effusions were present on 11/14/2016 but these are not detected on this single frontal view. Cardiac silhouette is borderline enlarged and there is stable prominence of central pulmonary vessels. Sternotomy wires remain intact. The visualized bones are intact. IMPRESSION: Lungs are hypoinflated. The linear opacities from atelectasis and/or mild infiltrates in the bases are not appreciably changed compared to 11/11/2016. DICTATED BY: AMALIA HOOK MD DATE/TIME DICTATED:11/25 [facility] REGISTERED NURSE RN:MICKIE DATE/TIME TRANSCRIBED:11/25/161244 CONFIDENTIAL, DO NOT COPY WITHOUT APPROPRIATE AUTHORIZATION. <Electronically signed in Other Vendor System> SIGNED BY: AMALIA HOOK MD 11/25/16 1255 Initial ED EKG: SINUS TACHYCARDIA, SHAKY BASELINE SECONDARY TO RIGORS, WILL REQUIRE REPEAT Rhythm Strip: sinus tachycardia Departure Departure Time of Disposition: 1335 Disposition: STILL A PATIENT Condition: Stable Clinical Impression Primary Impression: Sepsis Referrals: ANJA[facility] COBURN,JAZZY Vásquez (PCP/Family) Departure Forms: Customer Survey General Discharge Information Admission Note Spoke With: COLTON HARTLEY MD Documentation of Exam: Documentation of any treatments & extenuating circumstances including Concerns Regarding Discharge (functional status, medication knowledge or non-compliance, living conditions, etc.) that warrant an admission rather than observation: [IV FLUIDS, IV ABX, F/UCULTURES, ANTIPYRETICS, SERIAL ABDOMINAL EXAMINATION, PLASTICS CONSULT DR ERWIN, ID CONSULT DR BARLOW, CARDIOLOGY CONSULT DR FONTANEZ] Critical Care Note Critical Care Note Critical Care Time: 30-74 min
[2016-11-25 12:25] LABS: ABSOLUTE BASOPHIL COUNT 0 /CUMM (0.0-0.2); ABSOLUTE EOSINOPHIL COUNT 0 /CUMM (0.0-0.7); ABSOLUTE GRANULOCYTE CT 17.5 /CUMM (1.4-6.5); ABSOLUTE LYMPH COUNT 0.3 /CUMM (1.2-3.4); ABSOLUTE MONOCYTE COUNT 0.2 /CUMM (0.10-0.60); BASOPHIL % 0 % (0.0-2.0); EOSINOPHIL % 0.1 % (0-5); GRANULOCYTE % 97.2 % (42.2-75.2); HEMATOCRIT 42.9 % (42-52); MEAN CORPUSCULAR HGB 26.9 PG (27.0-31.0); MEAN CORPUSCULAR HGB CONC 31.9 G/DL (33.0-37.0); MEAN CORPUSCULAR VOLUME 84.5 FL (80.0-94.0); MEAN PLATELET VOLUME 6.9 FL (7.4-10.4); PLATELET COUNT 158 /CUMM (130-400); RBC DISTRIBUTION WIDTH 16.9 % (11.5-14.5); RED BLOOD CELL CT 5.08 /CUMM (4.70-6.10)
[2016-11-25 12:37] LABS: PT 12.6 SEC (9.4-12.5); PTT 31 SEC (25-37)
--- NOTE | 2016-11-25 12:55 | RADIOLOGY REPORT ---
EXAMINATION: XR PORTABLE CHEST CLINICAL INFORMATION: Fever and chills. COMPARISON: CXR from 11/11/2016. Abdomen CT from 11/14/2016. TECHNIQUE: Portable frontal view of the chest was obtained. FINDINGS: Lungs are hypoexpanded and there is mild interstitial prominence in lower lung zones, similar compared to 11/11/2016. Nonspecific linear opacities in the bases from mild atelectasis or possibly infiltrates, not appreciably changed from the prior exam. No new, focal airspace opacification. Small bilateral pleural effusions were present on 11/14/2016 but these are not detected on this single frontal view. Cardiac silhouette is borderline enlarged and there is stable prominence of central pulmonary vessels. Sternotomy wires remain intact. The visualized bones are intact. IMPRESSION: Lungs are hypoinflated. The linear opacities from atelectasis and/or mild infiltrates in the bases are not appreciably changed compared to 11/11/2016.
--- NOTE | 2016-11-25 13:19 | RADIOLOGY REPORT ---
EXAMINATION: XR HAND, LEFT CLINICAL INFORMATION: Shaking chills, fever, left hand wound. COMPARISON: 10/29/2016. TECHNIQUE: AP, lateral, and oblique views of the left hand. FINDINGS: There has been interval amputation of the left fifth digit. There appears to be some soft tissue swelling at the head of the fifth metacarpal, no underlying bony erosion is identified. No fracture is identified. Extensive vascular calcifications are noted. IMPRESSION: Status post amputation of the fifth digit. There is soft tissue swelling surrounding the head of the fifth metacarpal without underlying bony erosions identified.
--- NOTE | 2016-11-25 14:05 | History & Physical ---
REA COBURN,[facility] 11/25/16 1405: General Information and HPI MD Statement: I have seen and personally examined MAXI KENDRICK JR and documented this H&P. The patient is a 56 year old M who presented with a patient stated chief complaint of nausea, shortness of breath, chills Source of Information: patient, old records Exam Limitations: no limitations History of Present Illness: 56 year old man with past medical history of diabetes, hypertension, coronary artery disease s/p CABG, insulin-dependent diabetes DM, ESRD previously on hemodialysis, now s/p renal tranplant(6 years ago) now on Tacrolimus/ Mycophenolate/Prednisone, Takosubo's Cardiomyopathy, [place], right BKA with recurrent infection, and left fifth digit/ followed by gangrene, patient under an I&D of his left hand for which he was receiving treatment for osteomyelitis with intravenous daptomycin presented with chief complaint of nausea, vomiting, shortness of breath, chills. He was recently admitted at [facility] and was treated for sepsis likely secondary to osteoarthritis of left hand, acute inferior wall STEMI. As per patient, he was feeling fine after he was being discharged, up until Monday when he started having any feeling, last night around 10 PM he started feeling very nauseous, had vomiting, couple of episodes of loose stools, started having fever and chills. He came to see Dr. Dailey for his cardiology f/u visit, he was sent to ER for further evaluation of fever and chills. He also reports that his right BKA stump popped/was draining, but denies any current swelling, pain, redness. Does not report any pain or drainage from his left hand. Patient is wheel chair bound. Allergies/Medications Allergies: Coded Allergies: nut - unspecified (Severe, SKIN ULCERATION, THROAT SWELLING 11/25/16) ULCERS IN THROAT cefepime (HIVES 11/25/16) darbepoetin sherley (From ARANESP (IN ALBUMIN)) (throat swells 11/09/16) linezolid (blurry vision 11/25/16) metformin (GI DISTRESS 11/25/16) ondansetron (From ZOFRAN ( HYDROCHLORIDE)) (irregular heartbeat 11/25/16) sulfamethoxazole (From BACTRIM) (KIDNEY ISSUES 11/25/16) trimethoprim (From BACTRIM) (KIDNEY ISSUES 11/25/16) grapefruit (DRUG INTERACTOINS 11/25/16) Home Med list Aspirin (Ecotrin*) 325 MG TABLET.DR 1 TAB PO DAILY heart health (Reported) Cholecalciferol (Vitamin D3) (Vitamin D) 2,000 UNIT CAPSULE 1 CAP PO DAILY HEALTH SUPPLEMENT (Reported) Clopidogrel Bisulfate (Plavix) 75 MG TABLET 75 MG PO DAILY ANTI PLATELET . Insulin Aspart, Recombinant (Novolog Flexpen) 100 UNIT/ML INSULN.PEN 50 UNITS SC BID DIABETES (Reported) Insulin Glargine,Hum.rec.anlog (Lantus Solostar) 100 UNIT/ML (3 ML) INSULN.PEN 0 SC AD diabetes (Reported) 70 units in AM; 20 units at bedtime Mycophenolate Mofetil 500 MG TABLET 2 TAB PO BID IMMUNOSUPPRESSANT (Reported) Nitroglycerin (Minitran) 0.4 MG/HOUR PATCH.TD24 0.4 MG ACW DAILY CHEST PAIN ( Reported) Pantoprazole Sodium (Protonix) 20 MG TABLET.DR 1 TAB PO DAILY GERD (Reported) Prednisone 5 MG TABLET 1 TAB PO DAILY INFLAMMATION (Reported) Tacrolimus (Prograf) 0.5 MG CAPSULE 1 CAP PO QPM RENAL TRANSPLANT (Reported) Tacrolimus 1 MG CAPSULE 2 CAP PO BID ANTI-REJECTION (Reported) Past History Travel History Traveled to [place] past 21 day No Medical History Neurological: NONE EENT: NONE Cardiovascular: CAD, cardiomyopathy, hypertension, myocardial infarction, peripheral vascular disease Respiratory: NONE Gastrointestinal: irritable bowel syndrome, DIVERTICULITIS Hepatic: NONE Renal: chronic kidney disease, renal transplant, OLD CLOTTED AVF L ARM Musculoskeletal: osteomyelitis of the left fifth finger STAPH AUREUS L HAND Psychiatric: NONE Endocrine: DIABETES TYPE II Blood Disorders: NONE History of MRSA: Yes History of VRE: No History of CDIFF: No Surgical History Surgical History: CABG, right BKA renal transplant left TMA Past Family/Social History Family History Relations & Conditions if any FATHER Atrial fibrillation Relation not specified for: Hypertension in mother Psychosocial History Where do you live? Home Who Do You Live With? child Services at Home: Nursing Primary Language: Zambian ETOH Use: denies use Illicit Drug Use: denies illicit drug use Functional Ability ADLs Independent: dressing, eating. Needs Assist: toileting, bathing. Ambulation: WHEELCHAIR IADLs Independent: finances, food prep, telephone, medication admin. Needs Assist: shopping, housework, transportation. Review of Systems Review of Systems Constitutional: Reports: see HPI. Exam & Diagnostic Data Last 24 Hrs of Vital Signs/I&O Vital Signs Date Time Temp Pulse Resp B/P B/P Pulse O2 O2 Flow FiO2 Mean Ox Delivery Rate 11/25 1443 98.8 86 18 125/75 100 Room Air 11/25 1429 125/75 11/25 1427 98.6 11/25 1416 99 Room Air 11/25 1239 101.2 103 20 133/73 96 Room Air 11/25 1236 100.4 11/25 1153 99.0 91 22 99 Room Air Intake & Output 11/25 1600 11/25 0800 11/25 0000 Intake Total 1000 Output Total Balance 1000 Intake, IV 1000 Physical Exam General Appearance Alert, Oriented X3, Cooperative, No Acute Distress Cardiovascular Regular Rate, Normal S1, Normal S2, No Murmurs Lungs scattered b/l basal crepitus Abdomen Normal Bowel Sounds, Soft, No Tenderness Extremities No Clubbing, No Cyanosis, right leg BKA/ stump wrapped, left hand wrapped Last 24 Hrs of Labs/Ashish: Laboratory Tests 11/25/16 1520: Lactic Acid 1.6 11/25/16 1500: pH 7.38, pCO2 28 L, pO2 80, HCO3 16 L, ABG O2 Sat (Measured) 96.0, P-50 (Temp Corrected) NO, Carboxyhemoglobin 0.8 L, O2 Concentration % RA, Temperature 98.8 , O2 Delivery Method RA, Phlebotomy Draw Site RIGHT BRACHIAL 11/25/16 1215: Ammonia < 9 L 11/25/16 1215: Bicarbonate Actual 16 L, Mixed VBG pH 7.26 L, Mixed VBG pCO2 37 L, Mixed VBG O2 Saturation 30 L, P-50 (Temp Corrected) N, Carboxyhemoglobin 1.4 L, O2 Concentration % RA, Temperature 100.4 H, O2 Delivery Method RA, Anion Gap 17 H , Estimated GFR 31 L, BUN/Creatinine Ratio 19.5, Glucose 255 H, Lactic Acid 4.9 H, Calcium 8.8, Total Bilirubin 0.8, AST 103 H, ALT 105 H, Alkaline Phosphatase 69, Troponin I 0.42 *H, Total Protein 6.5, Albumin 3.8, Globulin 2.7 , Albumin/Globulin Ratio 1.4, PT 12.6 H, INR 1.20 H, APTT 31, CBC w Diff MAN DIFF ORDERED, RBC 5.08, MCV 84.5, MCH 26.9 L, RDW 16.9 H, MPV 6.9 L, Gran % 97.2 H, Lymphocytes % 1.5 L, Monocytes % 1.2 L, Eosinophils % 0.1, Basophils % 0 L, Absolute Granulocytes 17.5 H, Segmented Neutrophils 90 H, Band Neutrophils 8 H, Absolute Lymphocytes 0.3 L, Lymphocytes 2 L, Absolute Monocytes 0.2, Absolute Eosinophils 0, Absolute Basophils 0, Platelet Estimate ADEQUATE, Anisocytosis 1+, PUBS MCHC 31.9 L, Phlebotomy Draw Site L ARM, Acetone Level NEGATIVE Microbiology 11/25 1304 CATH TIP: Catheter Tip Culture - RECD 11/25 1300 BLOOD: Blood Culture - RECD 11/25 1226 BLOOD: Blood Culture - CAN Cancelled: Cancelled via OE: Per MD Decision 11/25 1215 BLOOD: Blood Culture - RECD Assessment/Plan Assessment: 56 year old man with past medical history of diabetes, hypertension, coronary artery disease s/p CABG, insulin-dependent diabetes DM, ESRD previously on hemodialysis, now s/p renal tranplant(6 years ago) now on Tacrolimus/ Mycophenolate/Prednisone, Takosubo's Cardiomyopathy, [place], right BKA with recurrent infection, and left fifth digit/ followed by gangrene 8 weeks ago, patient under an I&D of his left hand in [facility] for which he was receiving treatment for osteomyelitis with intravenous daptomycin presented with chief complaint of nausea, vomiting, shortness of breath, chills. VITALS upon presentation temperature 90.9, pulse 91, respiratory rate 22, blood pressure 133 was 73, satting in the high 90s on room air. Pertinent labs white count 18, H&H 13.7 and 42.9, crit 2015, sodium 135, creatinine 2.2 and the ON 43, lactic acid 4.9, chest X-ray showed hyperinflated lungs, lean opacities from atelectasis and/or mild infiltrates in the lung bases unchanged from 11/11 Patient to be admitted to telemetry floor and monitor for following conditions: Sepsis: -Evident by fever, rated elevated white count, elevated lactic acid double source unclear, likely left hand, right leg BKA stump. -CXR-ray showed hyperinflated lungs, lean opacities from atelectasis and/or mild infiltrates in the lung bases unchanged from 11/11 -Patient received one dose of vancomycin and 1 dose of meropenem in ER, patient was taking daptomycin upon last discharge for left hand osteomyelitis and MRSA. We'll continue daptomycin. -We'll follow-up repeat white count, lactic acid -Follow UA, urine and blood cultures -We will give Zofran as needed for nausea and vomiting -Patient likely would require x-ray or ultrasound of the right BKA stump patient states that it burst open couple of days ago but denies any redness, pain, any current discharge Elevated troponins: Likely secondary to demand ischemia, will trend troponin and EKGs History of coronary artery disease, hypertension, myocardial infarction: We'll continue home dose of clopidogrel, aspirin History of chronic kidney disease, status post kidney transplant: We'll continue home dose of Tacrolimus/Mycophenolate/Prednisone Avoid nephrotoxic drugs. Hx od Diabetes mellitus: Insulin sliding scale, FS glucose monitoring DVT prophylaxis with subcutaneous heparin Heart healthy diet Patient is DNR/DNI As Ranked By This Provider Problem List: 1. DNI (do not intubate) 2. DNR (do not resuscitate) 3. Osteomyelitis 4. Elevated troponin 5. Sepsis Core Measures/Miscellaneous Acute Coronary Syndrome ACS Diagnosis: No Cerebrovascular Accident CVA/TIA Diagnosis: No Congestive Heart Failure CHF Diagnosis: No VTE (View Protocol) VTE Risk Factors: Acute medical illness, Age > 40 No Mech VTE prophylaxis d/t: No contraindications No VTE Pharm Prophylaxis d/t: No contraindications VTE Diagnosis: No VTE Type: NONE VTE Confirmed by (Test): NONE Sepsis (View Protocol) Severe Sepsis Present: No Septic Shock Septic Shock Present: No Miscellaneous Documentation Attending Case Discussed With: HARMONY COBURN,MARK Primary Care Physician: JAZZY YEUNG MD Patient sees these Specialists . Level of Patient Care: Telemetry JASVIR AVILES 11/25/16 1445: Resident Review Statement Resident Statement: examined this patient, discussed with graduate internship, agreed with graduate internship Other Findings: Patient is a 56-year-old woman with past medical history significant for insulin -dependent diabetes melltisu, ESRD previously on hemodialysis s/p renal tranplant now on Tacrolimus/Mycophenolate/Prednisone, Takosubo's Cardiomyopathy, [place], and right BKA with recurrent infection, and left fifth digit amputation presented to the ED for evaluation of fever with chills. Patient was recently admitted to [facility] for left hand osteomyelitis with sepsis with elevated troponins with [facility] on 11/15/16,was discharged on IV daptomycin and ciprofloxacin. Patient was supposed to discontinue IV daptomycin but he continued as per his outpatient ID recommendations. He almost finished a course of ciprofloxacin. Patient was doing well until this Monday when he noticed swelling around the his right stump region, since then he's been getting sick. Reported nausea vomiting with rigors and chills. Today he was seen in Dr. Dailey's office for a follow-up appointment, his office he was found to be very diaphoretic and shaky and was sent to the ED for further evaluation. Patient denied any chest discomfort or trouble breathing. Patient reported some loose soft stools today, without any abdominal discomfort. ED course: Vitals on admission temperature 99.0, with a max of 101.2, was tachycardic to 103, blood pressure was stable on admission: 133/70 desaturating more than 92% on room air. Examination General Appearance: Alert, not in acute distress Skin: Grossly normal HEENT: PERRLA Neck: Supple, No JVD Cardiovascular: Regular Rate, Normal S1, Normal S2, No Murmurs Lungs: Clear to Auscultation, with some crackles Abdomen: Normal Bowel Sounds, Soft, No Tenderness Neurological: Normal Speech, Strength at 5/5 X4 Ext, Cranial Nerves 3-12 NL, Reflexes 2+ Extremities: Right stump appeared red without any evidence of pus or discharge. Left hand: Stitches look clean with some redness and tenderness. Vascular: Normal Pulses Pertinent labs on admission leukocytosis 18 with granulocytosis, H&H 13.7 and 42.9, crit 2015, sodium 135, creatinine 2.2 and the ON 43, lactic acid 4.9, Chest X-ray showed hyperinflated lungs, lean opacities from atelectasis and/or mild infiltrates in the lung bases unchanged from 11/11 left hand xray: Status post amputation of the fifth digit. There is soft tissue swelling surrounding the head of the fifth metacarpal without underlying bony erosions identified. EKG done in the ED showed normal sinus rhythm. Assessment and plan: Patient is a 56-year-old woman with past medical history significant for insulin -dependent diabetes melltisu, ESRD previously on hemodialysis s/p renal tranplant now on Tacrolimus/Mycophenolate/Prednisone, Takosubo's Cardiomyopathy, [place], and right BKA with recurrent infection, and left fifth digit amputation presented to the ED for evaluation of fever with chills. Patient is clearly septic(tachycardic and febrile with elevated WBC count and lactic acid levels,), but the sources still not clear whether it's infection from the right BKA stump or PICC line infection. Patient developed the symptoms , while patient was on IV daptomycin and ciprofloxacin. Patient has also elevated troponins without any definite ischemic ST-T changes. We'll admit the patient to telemetry floor * Suspicion of line sepsis as high, for possible MRSA. Patient should also recovered from gram-negative bugs such as Cipro resistant Pseudomonas but patient is allergic to ceftazidime. * Patient already received IV vancomycin for possible MRSA and meropenem in the ED will continue with the same antibodies for now. * ID consult with Dr. earl has been obtained we'll follow the recommendations. * We will obtain right BKA stump ultrasound to rule out any underlying abscess. * Tylenol as needed for fever, Tigan for nausea and vomiting. * We'll start the patient on IV hydration with normal saline. * Watch for any hemodynamic stability * Monitor vitals every 4 hours. 2.Elevated troponins w/o STT changes(most likely due to demand ischemia in the setting of line sepsis) * Will obtain cardiology consult Dr. Dailey * No need of anticoagulation for now * We will continue with aspirin and Plavix. History of coronary artery disease, hypertension, myocardial infarction: * continue home dose of clopidogrel, aspirin History of chronic kidney disease, status post kidney transplant: * continue home dose of Tacrolimus/Mycophenolate/Prednisone * Avoid nephrotoxic drugs. History of diabetes mellitus * Start the patient on NovoLog sliding scale with Accu-Cheks. * Continue with Lantus. DVT prophylaxis with subcutaneous heparin Heart healthy diet Patient is DNR/DNI
--- NOTE | 2016-11-25 15:12 | Admission Certification ---
Admission Certification Certification Statement - As attending physician, I certify that at the time of - admission, based on clinical presentation, severity of - symptoms, need for further diagnostic testing and - therapeutic interventions, and risk of adverse outcomes - without in-hospital treatment, in my clinical assessment, - this patient requires an acute hospital stay for a minimum - of two nights or longer. I have also considered psychsocial - factors such as support system, advanced age, financial - issues, cognitive issues, and failed out-patient treatments, - past re-admission history, safety of patient, and lack of - compliance as applicable. Specific rationale supporting this admission is: sepsis fever
--- NOTE | 2016-11-25 15:29 | PN- Att Addend ---
Attending Addendum Attending Brief Note Patient seen and examined. Plan of care discussed with the medical team and the patient. Available lab work and radiology test reports were reviewed. This is a 56-year-old man with a history of diabetes, hypertension, coronary artery disease, status post [place], cardiomyopathy, status post CABG, complicated by multiorgan failure requiring dialysis for 2 years, followed by a right cadaveric kidney transplant 6 years prior to admission. He has been treated with CellCept, Prograf and prednisone, peripheral vascular disease, status post right BKA, with poor healing and persistent wound, and left TMA. He was treated about 8 weeks ago at [facility] for left hand abscess and osteomyelitis. He status post drainage and amputation of fifth finger. Presumably it was MRSA infection therefore he was started on daptomycin. Patient states that his the physician at [facility] Dr. Bryant still wants him to stay on daptomycin for 2 more weeks. Patient has complicated past medical history. He was recently admitted from November 12 to November 15 with similar symptoms of fever and sepsis. He grew Proteus of the time and source of which was not clear. Patient was started on ciprofloxacin for 10 days and daptomycin was continued. He was sent from Dr. Dailey's office for having fever. Patient is feeling well since her last night. He had nausea and vomited about 6 times. He also had chills and fever. He denies any cough or sputum production. Denies any dental pain. He had mild diarrhea without any blood. his right arm on PICC line was removed in the emergency room. Vital Signs Date Time Temp Pulse Resp B/P B/P Pulse O2 O2 Flow FiO2 Mean Ox Delivery Rate 11/25 1443 98.8 86 18 125/75 100 Room Air 11/25 1429 125/75 11/25 1427 98.6 11/25 1416 99 Room Air 11/25 1239 101.2 103 20 133/73 96 Room Air 11/25 1236 100.4 11/25 1153 99.0 91 22 99 Room Air Intake & Output 11/25 1600 11/25 0800 11/25 0000 Intake Total 1000 Output Total Balance 1000 Intake, IV 1000 Exam: General: Patient awake alert oriented without any distress but appears lethargic CVS: S1 plus S2 without any murmur or gallops Chest: Few scattered crepitation without any wheeze. There is no respiratory distress. Abdomen: Soft nontender, obese, bowel sound present, no guarding or rebound TRAINING PROGRAM ASSISTANT: Awake alert oriented without any focal neuro deficit and follows command appropriately Extremities: No edema; no clubbing or cyanosis noted; right BKA is noted and stump is covered with dressing. Left hand is covered with hefty dressing and pinky finger is missing. Laboratory Tests 11/25 11/25 1500 1215 Blood Gas pH (7.35 - 7.45 PH) 7.38 pCO2 (35 - 45 TORR) 28 L pO2 (80 - 100 TORR) 80 HCO3 (21 - 28 MEQ/L) 16 L ABG O2 Sat (Measured) (>96.0 %) 96.0 P-50 (Temp Corrected) NO Carboxyhemoglobin (1.5 - 5.0 %) 0.8 L O2 Concentration % RA Temperature (97.0 - 100.0 FARH) 98.8 O2 Delivery Method RA Chemistry Ammonia (9 - 30 umol/L) < 9 L Miscellaneous Phlebotomy Draw Site RIGHT BRACHIAL 11/25 1215 Blood Gas Bicarbonate Actual (22 - 26 MEQ/L) 16 L Mixed VBG pH (7.31 - 7.41 PH) 7.26 L Mixed VBG pCO2 (41 - 51 TORR) 37 L Mixed VBG O2 Saturation (35 - 45 TORR) 30 L P-50 (Temp Corrected) N Carboxyhemoglobin (1.5 - 5.0 %) 1.4 L O2 Concentration % RA Temperature (97.0 - 100.0 FARH) 100.4 H O2 Delivery Method RA Chemistry Sodium (137 - 145 mmol/L) 135 L Potassium (3.5 - 5.1 mmol/L) 4.8 Chloride (98 - 107 mmol/L) 103 Carbon Dioxide (22 - 30 mmol/L) 15 L Anion Gap (5 - 16) 17 H BUN (9 - 20 mg/dL) 43 H Creatinine (0.7 - 1.2 mg/dL) 2.2 H Estimated GFR (>60 ml/min) 31 L BUN/Creatinine Ratio (7 - 25 %) 19.5 Glucose (65 - 99 mg/dL) 255 H Lactic Acid (0.7 - 2.1 mmol/L) 4.9 H Calcium (8.4 - 10.2 mg/dL) 8.8 Total Bilirubin (0.2 - 1.3 mg/dL) 0.8 AST (17 - 59 U/L) 103 H ALT (21 - 72 U/L) 105 H Alkaline Phosphatase (< 127 U/L) 69 Troponin I (<0.11 ng/ml) 0.42 *H Total Protein (6.3 - 8.2 g/dL) 6.5 Albumin (3.5 - 5.0 g/dL) 3.8 Globulin (1.9 - 4.2 gm/dL) 2.7 Albumin/Globulin Ratio (1.1 - 2.2 %) 1.4 Coagulation PT (9.4 - 12.5 SEC) 12.6 H INR (0.90 - 1.17) 1.20 H APTT (25 - 37 SEC) 31 Hematology CBC w Diff MAN DIFF ORDERED WBC (4.8 - 10.8 /CUMM) 18.0 H RBC (4.70 - 6.10 /CUMM) 5.08 Hgb (14.0 - 18.0 G/DL) 13.7 L Hct (42 - 52 %) 42.9 MCV (80.0 - 94.0 FL) 84.5 MCH (27.0 - 31.0 PG) 26.9 L RDW (11.5 - 14.5 %) 16.9 H Plt Count (130 - 400 /CUMM) 158 MPV (7.4 - 10.4 FL) 6.9 L Gran % (42.2 - 75.2 %) 97.2 H Lymphocytes % (20.5 - 51.1 %) 1.5 L Monocytes % (1.7 - 9.3 %) 1.2 L Eosinophils % (0 - 5 %) 0.1 Basophils % (0.0 - 2.0 %) 0 L Absolute Granulocytes (1.4 - 6.5 /CUMM) 17.5 H Segmented Neutrophils (42.2 - 75.2 %) 90 H Band Neutrophils (0.0 - 5.0 %) 8 H Absolute Lymphocytes (1.2 - 3.4 /CUMM) 0.3 L Lymphocytes (20.5 - 51.1 %) 2 L Absolute Monocytes (0.10 - 0.60 /CUMM) 0.2 Absolute Eosinophils (0.0 - 0.7 /CUMM) 0 Absolute Basophils (0.0 - 0.2 /CUMM) 0 Platelet Estimate (ADEQUATE) ADEQUATE Anisocytosis 1+ PUBS MCHC (33.0 - 37.0 G/DL) 31.9 L Miscellaneous Phlebotomy Draw Site L ARM Toxicology Acetone Level (NEGATIVE) NEGATIVE Microbiology Date/Time Procedure - Status Source Growth 11/25 1304 Catheter Tip Culture - RECD CATH TIP 11/25 1300 Blood Culture - RECD BLOOD 11/25 1226 Blood Culture - CAN BLOOD Cancelled: Cancelled via OE: Per MD Decision 11/25 1215 Blood Culture - RECD BLOOD Left hand x-ray Status post amputation of the fifth digit. There is soft tissue swelling surrounding the head of the fifth metacarpal without underlying bony erosions identified. Chest x-ray Lungs are hypoinflated. The linear opacities from atelectasis and/or mild infiltrates in the bases are not appreciably changed compared to 11/11/2016. Assessment * Suspected sepsis- probable source probably his PICC line or lungs. Other potential source could be left hand. Fever setting of for daptomycin and Cipro is challenging. Possible organism could include gram-positive such as enterococcus for which daptomycin may have a high LEIGHTON. In addition can consider gram-negative such as Cipro resistant Pseudomonas. * Nausea and vomiting possibly related to sepsis * History of ESRD, status post hemodialysis in the past with nonfunctioning left upper arm fistula. Patient status post renal transplant * Immunocompromise status * Chronic anemia * Mild hypokalemia * Chronic renal failure * Elevated troponin- likely related to kidney disease, level is somewhat lower than on November 13 and it was 1.94. Plan * Continue daptomycin * Add Fortaz * ID consult * Await blood cultures and urine cultures * Continue immunotherapy suppressive therapy * IV fluids for worsening renal failure- recheck creatinine and chemistries tomorrow
[2016-11-25 16:40] VITALS: BP 116/66
[2016-11-25] MEDS ORDERED: LANTUS SOL100 UNIT/1 SC (17:11)
--- NOTE | 2016-11-25 17:11 | Cons- Infect Disease ---
General Information and HPI Consulting Request Date of Consult: 11/25/16 Requested By: HARMONY COBURN,MARK Reason for Consult: Rule out sepsis Source of Information: patient, old records History of Present Illness: This is a 56-year-old man with a history of diabetes, hypertension, coronary artery disease, status post NJ, status post CABG, cardiomyopathy, irritable bowel syndrome, with end-stage renal disease, requiring dialysis for 2 years, with a nonfunctioning left upper extremity graft still in place, status post cadaveric renal transplant 6 years prior to admission, maintained on CellCept, Prograf and Prednisone, and peripheral vascular disease, status post right BKA and left TMA, 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 at [facility] 2 months prior to admission, status post partial amputation and treatment with multiple antibiotics including Vancomycin, Linezolid, Doxycycline and, ultimately, Daptomycin, via a midline in the right upper extremity, hospitalized at [facility] 2 weeks prior to admission several hours after a right BKA revision and completion of a left fifth finger amputation earlier that day, found to have Proteus sepsis, with source never identified, with his hospital course notable for an acute NJ, discharged after 4 days on Daptomycin, with the recommendation to discontinue after 3 days, and Ciprofloxacin, to complete a 14 day course, seen by his infectious disease physician at [facility] who recommended continuing the Daptomycin for several more weeks, admitted today after presenting to the emergency room with a one-day history of fevers, chills, nausea and vomiting, with soft stools this morning, with no complaints of shortness of breath, cough, chest pain, dysuria or back pain. On admission he was febrile to 101.2. Laboratory data revealed a white blood cell count of 18,000, BUN/creatinine 43 and 2.2, lactic acid 4.9, AST/ALT 103 and 105, troponin 0.42, INR 1.20, ABG 7.38/28/80 on room air. Chest x-ray revealed nonspecific linear opacities at the bases, unchanged from his previous study. X-ray of the left hand revealed soft tissue swelling surrounding the head of the fifth metacarpal with no underlying bony erosions. The midline catheter was removed in the emergency room and he was begun on Vancomycin. Allergies/Medications Allergies: Coded Allergies: nut - unspecified (Severe, SKIN ULCERATION, THROAT SWELLING 11/25/16) ULCERS IN THROAT cefepime (HIVES 11/25/16) darbepoetin sherley (From ARANESP (IN ALBUMIN)) (throat swells 11/09/16) linezolid (blurry vision 11/25/16) metformin (GI DISTRESS 11/25/16) ondansetron (From ZOFRAN ( HYDROCHLORIDE)) (irregular heartbeat 11/25/16) sulfamethoxazole (From BACTRIM) (KIDNEY ISSUES 11/25/16) trimethoprim (From BACTRIM) (KIDNEY ISSUES 11/25/16) grapefruit (DRUG INTERACTOINS 11/25/16) Home Med List: Aspirin (Ecotrin*) 325 MG TABLET.DR 1 TAB PO DAILY heart health (Reported) Cholecalciferol (Vitamin D3) (Vitamin D) 2,000 UNIT CAPSULE 1 CAP PO DAILY HEALTH SUPPLEMENT (Reported) Ciprofloxacin HCl (Cipro) 500 MG TABLET 500 MG PO BID INFECTION Clopidogrel Bisulfate (Plavix) 75 MG TABLET 75 MG PO DAILY ANTI PLATELET . DAPTOmycin 500 MG VIAL 400 MG IV DAILY OSTEOMYELITIS (Reported) Mycophenolate Mofetil 500 MG TABLET 2 TAB PO BID IMMUNOSUPPRESSANT (Reported) Pantoprazole Sodium (Protonix) 20 MG TABLET.DR 1 TAB PO DAILY GERD (Reported) Prednisone 5 MG TABLET 1 TAB PO DAILY INFLAMMATION (Reported) Tacrolimus 1 MG CAPSULE 2 CAP PO BID ANTI-REJECTION (Reported) Past History Travel History Traveled to [place] past 21 day No Medical History Neurological: NONE EENT: NONE Cardiovascular: CAD, cardiomyopathy, hypertension, myocardial infarction, peripheral vascular disease Respiratory: NONE Gastrointestinal: irritable bowel syndrome, DIVERTICULITIS Hepatic: NONE Renal: chronic kidney disease, renal transplant, OLD CLOTTED AVF L ARM Musculoskeletal: 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 Home Who Do You Live With? child Services at Home: Nursing Primary Language: [place] ETOH Use: denies use Illicit Drug Use: denies illicit drug use Functional Ability ADLs Independent: dressing, eating. Needs Assist: toileting, bathing. Ambulation: WHEELCHAIR IADLs Independent: finances, food prep, telephone, medication admin. Needs Assist: shopping, housework, transportation. Review of Systems Review of Systems Cardiovascular: Denies: chest pain. Respiratory: Denies: cough, short of breath. GI: Reports: changes in stool (soft stools this morning). Genitourinary: Reports: no symptoms. All Other Systems: Reviewed and Negative Exam & Diagnostic Data Last 24 Hrs of Vital Signs/I&O Vital Signs Date Time Temp Pulse Resp B/P B/P Pulse O2 O2 Flow FiO2 Mean Ox Delivery Rate 11/25 1443 98.8 86 18 125/75 100 Room Air 11/25 1429 125/75 11/25 1427 98.6 11/25 1416 99 Room Air 11/25 1239 101.2 103 20 133/73 96 Room Air 11/25 1236 100.4 11/25 1153 99.0 91 22 99 Room Air Intake & Output 11/25 1600 11/25 0800 11/25 0000 Intake Total 1000 Output Total Balance 1000 Intake, IV 1000 Physical Exam Other Physical Findings: He is awake and alert in no acute distress. MAXIMUM TEMPERATURE 101.2. Skin reveals no rash. HEENT exam is negative. Neck is supple with no adenopathy. Lungs are clear. Heart regular rhythm with no murmur. Abdomen is obese, soft, mild tenderness over the left lower quadrant, with no guarding or rebound, with positive bowel sounds. Back no CVA tenderness. Extremities mild erythema and tenderness in the right upper extremity at the site of the recent midline catheter; left hand with mild erythema, edema and tenderness, with incisions clean, with no active drainage; right BKA stump slightly boggy and tender with slight erythema, status post removal of several sutures with drainage on the dressing; left TMA stump clean, well-healed with no erythema or drainage; left upper extremity clotted AV fistula with no inflammation. Neuro is without focality. Last 24 Hours of Lab Results: Laboratory Tests 11/25 11/25 11/25 1520 1500 1215 Blood Gas pH (7.35 - 7.45 PH) 7.38 pCO2 (35 - 45 TORR) 28 L pO2 (80 - 100 TORR) 80 HCO3 (21 - 28 MEQ/L) 16 L ABG O2 Sat (Measured) (>96.0 %) 96.0 P-50 (Temp Corrected) NO Carboxyhemoglobin (1.5 - 5.0 %) 0.8 L O2 Concentration % RA Temperature (97.0 - 100.0 FARH) 98.8 O2 Delivery Method RA Chemistry Lactic Acid (0.7 - 2.1 mmol/L) 1.6 Ammonia (9 - 30 umol/L) < 9 L Miscellaneous Phlebotomy Draw Site RIGHT BRACHIAL 11/25 1215 Blood Gas Bicarbonate Actual (22 - 26 MEQ/L) 16 L Mixed VBG pH (7.31 - 7.41 PH) 7.26 L Mixed VBG pCO2 (41 - 51 TORR) 37 L Mixed VBG O2 Saturation (35 - 45 TORR) 30 L P-50 (Temp Corrected) N Carboxyhemoglobin (1.5 - 5.0 %) 1.4 L O2 Concentration % RA Temperature (97.0 - 100.0 FARH) 100.4 H O2 Delivery Method RA Chemistry Sodium (137 - 145 mmol/L) 135 L Potassium (3.5 - 5.1 mmol/L) 4.8 Chloride (98 - 107 mmol/L) 103 Carbon Dioxide (22 - 30 mmol/L) 15 L Anion Gap (5 - 16) 17 H BUN (9 - 20 mg/dL) 43 H Creatinine (0.7 - 1.2 mg/dL) 2.2 H Estimated GFR (>60 ml/min) 31 L BUN/Creatinine Ratio (7 - 25 %) 19.5 Glucose (65 - 99 mg/dL) 255 H Lactic Acid (0.7 - 2.1 mmol/L) 4.9 H Calcium (8.4 - 10.2 mg/dL) 8.8 Total Bilirubin (0.2 - 1.3 mg/dL) 0.8 AST (17 - 59 U/L) 103 H ALT (21 - 72 U/L) 105 H Alkaline Phosphatase (< 127 U/L) 69 Troponin I (<0.11 ng/ml) 0.42 *H Total Protein (6.3 - 8.2 g/dL) 6.5 Albumin (3.5 - 5.0 g/dL) 3.8 Globulin (1.9 - 4.2 gm/dL) 2.7 Albumin/Globulin Ratio (1.1 - 2.2 %) 1.4 Coagulation PT (9.4 - 12.5 SEC) 12.6 H INR (0.90 - 1.17) 1.20 H APTT (25 - 37 SEC) 31 Hematology CBC w Diff MAN DIFF ORDERED WBC (4.8 - 10.8 /CUMM) 18.0 H RBC (4.70 - 6.10 /CUMM) 5.08 Hgb (14.0 - 18.0 G/DL) 13.7 L Hct (42 - 52 %) 42.9 MCV (80.0 - 94.0 FL) 84.5 MCH (27.0 - 31.0 PG) 26.9 L RDW (11.5 - 14.5 %) 16.9 H Plt Count (130 - 400 /CUMM) 158 MPV (7.4 - 10.4 FL) 6.9 L Gran % (42.2 - 75.2 %) 97.2 H Lymphocytes % (20.5 - 51.1 %) 1.5 L Monocytes % (1.7 - 9.3 %) 1.2 L Eosinophils % (0 - 5 %) 0.1 Basophils % (0.0 - 2.0 %) 0 L Absolute Granulocytes (1.4 - 6.5 /CUMM) 17.5 H Segmented Neutrophils (42.2 - 75.2 %) 90 H Band Neutrophils (0.0 - 5.0 %) 8 H Absolute Lymphocytes (1.2 - 3.4 /CUMM) 0.3 L Lymphocytes (20.5 - 51.1 %) 2 L Absolute Monocytes (0.10 - 0.60 /CUMM) 0.2 Absolute Eosinophils (0.0 - 0.7 /CUMM) 0 Absolute Basophils (0.0 - 0.2 /CUMM) 0 Platelet Estimate (ADEQUATE) ADEQUATE Anisocytosis 1+ PUBS MCHC (33.0 - 37.0 G/DL) 31.9 L Miscellaneous Phlebotomy Draw Site L ARM Toxicology Acetone Level (NEGATIVE) NEGATIVE Last 24 Hours of Ashish Results: Blood cultures 2 November 25 pending Midline catheter tip culture November 25 pending Diagnostic Data Recent Imaging Findings: Chest x-ray, personally reviewed, reveals nonspecific linear opacities at the bases, unchanged from his previous study. X-ray of the left hand reveals soft tissue swelling surrounding the head of the fifth metacarpal with no underlying bony erosions. Assessment/Plan Assessment/Plan Impression: This is a 56-year-old man with multiple medical problems including end-stage renal disease, status post a renal transplant 6 years prior to admission, and maintained on immunosuppressive therapy since, hospitalized 2 weeks prior to admission with Proteus sepsis, with source never identified, diagnosed just hours after completion of a left fifth finger amputation for MRSA osteomyelitis, which had been diagnosed at [facility] and for which he was on Daptomycin prior to admission, and right BKA revision, with his hospital course complicated by an NJ, discharged on Ciprofloxacin and Daptomycin, which have been continued to the present, admitted today with a one-day history of fevers, chills, nausea and vomiting, found to be febrile with a leukocytosis, with worsening renal failure and an elevated lactic acid. He has several possible sources of sepsis including the midline catheter, which was removed earlier today, the right BKA stump, which does appear to have some inflammation, and the left hand, which appears mildly inflamed. He does report soft stools and C. difficile is possible given his prolonged antibiotics. He has little evidence for pneumonia or a urinary tract infection, though no urine has been obtained. Given his fever and leukocytosis he will need to be covered empirically with antibiotics, which will need to be directed against pathogens that may be resistant to his current antibiotic regimen. His renal failure is of concern, given his transplant status, though I suspect it is prerenal secondary to dehydration. Of note his troponin is elevated but it is decreased from his recent admission. Suggestion: 1. Obtain a urinalysis and urine culture 2. Ensure adequate IV fluids 3. Ultrasound of the right BKA stump 4. Stool for C. difficile if he has diarrhea 5. Plastic surgery evaluation of his right BKA and left hand wounds 6. Maintain his current immunosuppressive therapy 7. Renal input 8. Follow-up recent cultures 9. Would treat with Vancomycin 1 g IV every 24 hours and Meropenem 1 g IV every 8 hours pending above Consult Acknowledgment - Thank you for your consult request.
[2016-11-25] MEDS ORDERED: NOVOLOG FL100 UNIT/1 SC (17:12)
[2016-11-25] MEDS ORDERED: MINITRAN1 EAC2 ACW (17:15)
[2016-11-25] MEDS ORDERED: PROGRAF0.5 MG PO (17:17)
--- NOTE | 2016-11-25 18:07 | Cons- Cardiology ---
General Information and HPI Consulting Request Date of Consult: 11/25/16 Requested By: HARMONY COBURN,MARK History of Present Illness: Mr. Dutton is a 56 year old male with history of hypertension, diabetes and coronary artery disease s/p AL with CABG x 2 and stress induced cardiomyopathy. He also is a vasculopath with extensive peripheral vascular disease. Finally, this patient has a history of renal failure with a transplanted kidney. This patient was most recently admitted to [facility] about a week ago following surgery to his right leg stump and left hand. After surgery the patient went home where he became nauseated and felt weak with documented fever. He did rule in for an AL at that time but was subsequently sent home in stable condition. Today, this patient presented to my office for follow up and was noted to have rigors. He admitted to both fever and chills since yesterday and also had repeated bouts of vomiting. He felt that he was dehydrated. In the ER his blood pressure was a bit low but it responded to IV fluids well. He denies chest pain, pressure, tightness, shortness of breath at his current level of activity of palpitations At his baseline he does have some occasional lightheadedness and was noted to have paroxysms of type 1 second degree AV block. His troponin is elevated to 0.42 in the setting of an elevated creatinine of 2.2 and in the setting of tachycardia. The patient has an elevated WBC count with bandemia. It should be noted that this patient is on immunosuppressive therapy for his renal transplant. He has a midline which was removed today in the ER. Cardiac workup has included an echocardiogram showing a normal EF of 55% with severe inferior and inferoseptal hypokinesis, mild left ventricular hypertrophy, severe left atrial enlargement, mild MR, TR and PI with trace AI. He also demonstrated moderate pulmonary hypertension. Allergies/Medications Allergies: Coded Allergies: nut - unspecified (Severe, SKIN ULCERATION, THROAT SWELLING 11/25/16) ULCERS IN THROAT cefepime (HIVES 11/25/16) darbepoetin sherley (From ARANESP (IN ALBUMIN)) (throat swells 11/09/16) linezolid (blurry vision 11/25/16) metformin (GI DISTRESS 11/25/16) ondansetron (From ZOFRAN ( HYDROCHLORIDE)) (irregular heartbeat 11/25/16) sulfamethoxazole (From BACTRIM) (KIDNEY ISSUES 11/25/16) trimethoprim (From BACTRIM) (KIDNEY ISSUES 11/25/16) grapefruit (DRUG INTERACTOINS 11/25/16) Home Med List: Aspirin (Ecotrin*) 325 MG TABLET.DR 1 TAB PO DAILY heart health (Reported) Cholecalciferol (Vitamin D3) (Vitamin D) 2,000 UNIT CAPSULE 1 CAP PO DAILY HEALTH SUPPLEMENT (Reported) Clopidogrel Bisulfate (Plavix) 75 MG TABLET 75 MG PO DAILY ANTI PLATELET . Insulin Aspart, Recombinant (Novolog Flexpen) 100 UNIT/ML INSULN.PEN 50 UNITS SC BID DIABETES (Reported) Insulin Glargine,Hum.rec.anlog (Lantus Solostar) 100 UNIT/ML (3 ML) INSULN.PEN 0 SC AD diabetes (Reported) 70 units in AM; 20 units at bedtime Mycophenolate Mofetil 500 MG TABLET 2 TAB PO BID IMMUNOSUPPRESSANT (Reported) Nitroglycerin (Minitran) 0.4 MG/HOUR PATCH.TD24 0.4 MG ACW DAILY CHEST PAIN ( Reported) Pantoprazole Sodium (Protonix) 20 MG TABLET.DR 1 TAB PO DAILY GERD (Reported) Prednisone 5 MG TABLET 1 TAB PO DAILY INFLAMMATION (Reported) Tacrolimus (Prograf) 0.5 MG CAPSULE 1 CAP PO QPM RENAL TRANSPLANT (Reported) Tacrolimus 1 MG CAPSULE 2 CAP PO BID ANTI-REJECTION (Reported) Review of Systems Review of Systems: vomiting Past History Travel History Traveled to [place] past 21 day No Medical History Blood Transfusion Hx: Yes Neurological: NONE EENT: NONE Cardiovascular: CAD, cardiomyopathy, hypertension, myocardial infarction, peripheral vascular disease Respiratory: NONE Gastrointestinal: irritable bowel syndrome, DIVERTICULITIS Hepatic: NONE Renal: chronic kidney disease, renal transplant, OLD CLOTTED AVF L ARM Musculoskeletal: 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 Home Who Do You Live With? child Services at Home: Nursing Primary Language: Bengali Smoking Status: Former Smoker ETOH Use: denies use Illicit Drug Use: denies illicit drug use Functional Ability ADLs Independent: dressing, eating. Needs Assist: toileting, bathing. Ambulation: WHEELCHAIR IADLs Independent: finances, food prep, telephone, medication admin. Needs Assist: shopping, housework, transportation. Exam & Diagnostic Data Vital Signs and I&O Vital Signs Date Time Temp Pulse Resp B/P B/P Pulse O2 O2 Flow FiO2 Mean Ox Delivery Rate 11/25 1650 Nasal Cannula 11/25 1640 98.4 77 20 116/66 96 Room Air 11/25 1443 98.8 86 18 125/75 100 Room Air 11/25 1429 125/75 11/25 1427 98.6 11/25 1416 99 Room Air 11/25 1239 101.2 103 20 133/73 96 Room Air 11/25 1236 100.4 11/25 1153 99.0 91 22 99 Room Air Intake & Output 11/25 1600 11/25 0800 11/25 0000 11/24 1600 11/24 0800 11/24 0000 Intake Total 1000 Output Total Balance 1000 Intake, IV 1000 Physical Exam: General: WD/ overweight male in NAD; alert and oriented x 3 HEENT: NC/AT, PERRL, EOMI Neck: no JVD, no carotid bruit Heart: RRR w/o murmur Lungs: clear bilaterally Abdomen: soft, obese, NT, +ve bowel sounds Ext: no edema, Right BKA Assessment/Plan Assessment/Plan * This patient almost certainly has some degree of flow limiting coronary artery disease but is nevertheless gratifyingly pain free at the present time. Dehydration from vomiting an inanition has resulted in worsening renal function and tachycardia. This has produced increased myocardial demand and decreased renal clearance of cardiac troponin. He nevertheless has an improvement in his troponin compared to his last admission. In consideration of his absence of pain and renal insufficiency I would opt for medical therapy. Continue aspirin and Plavix but IV heparin does not need to be started. Follow cardiac enzymes until they peak. Continue his NTG patch at 0.4mg/24 hours for improved coronary perfusion and to improve his blood pressure unless hypotension is noted. It should be noted that this patient had multiple NTG patches on when he first presented to my office this morning. I would hold off on beta blockade due to baseline bradycardia. * No ACEI due to borderline BP and increased creatinine. * Overall normal EF on echo with inferior and inferoseptal hypokinesis. As such, he can and should receive IV fluids as needed for dehydration. His dehydration has likely caused some hepatic insufficiency from decreased flow, renal insufficiency and tachycardia. * This patient has infection with suspected sepsis. Obtain blood cultures and follow his WBC count. Begin Vancomycin as recommended by ID. He likely had line sepsis but this is not unequivocally the source. Consult Acknowledgment - Thank you for your consult request.
--- NOTE | 2016-11-25 21:43 | ULTRASOUND REPORT ---
EXAMINATION: US SUPERFICIAL IMAGING, EXTREMITY CLINICAL INFORMATION: Sepsis of unknown etiology. History of right BKA revision with open wound and drainage. COMPARISON: None TECHNIQUE: Grayscale and color Doppler imaging labeled right BKA stump. FINDINGS: There is a 1.9 x 0.5 x 2.5 cm fluid collection in the soft tissues which is heterogeneous appearing and concerning for an evolving abscess given the clinical findings noted above. IMPRESSION: Probable small abscess. Surgical consultation and correlation is recommended.
[2016-11-26 00:51] VITALS: BP 108/62
[2016-11-26 06:03] LABS: ABSOLUTE BASOPHIL COUNT 0 /CUMM (0.0-0.2); ABSOLUTE EOSINOPHIL COUNT 0.1 /CUMM (0.0-0.7); ABSOLUTE LYMPH COUNT 0.7 /CUMM (1.2-3.4); ABSOLUTE MONOCYTE COUNT 0.9 /CUMM (0.10-0.60); MEAN PLATELET VOLUME 7.5 FL (7.4-10.4)
[2016-11-26 06:20] LABS: ABSOLUTE GRANULOCYTE CT 6.8 /CUMM (1.4-6.5); BASOPHIL % 0.3 % (0.0-2.0); EOSINOPHIL % 0.8 % (0-5); GRANULOCYTE % 80.5 % (42.2-75.2); HEMATOCRIT 39.2 % (42-52); MEAN CORPUSCULAR HGB CONC 31.8 G/DL (33.0-37.0); PLATELET COUNT 129 /CUMM (130-400); RED BLOOD CELL CT 4.61 /CUMM (4.70-6.10)
[2016-11-26 06:23] LABS: WHITE BLOOD CELL COUNT 8.5 /CUMM (4.8-10.8)
[2016-11-26 08:45] VITALS: BP 118/62
--- NOTE | 2016-11-26 11:00 | PN- Infect Dx ---
Subjective Subjective: MAXIMUM TEMPERATURE 101.2. He feels improved with no further nausea or vomiting. Objective Last 24 Hrs of Vital Signs/I&O Vital Signs Date Time Temp Pulse Resp B/P B/P Pulse O2 O2 Flow FiO2 Mean Ox Delivery Rate 11/26 0845 97.4 64 20 118/62 95 Room Air 11/26 0800 Room Air 11/26 0051 97.8 60 20 108/62 95 Room Air 11/25 1650 Nasal Cannula 11/25 1640 98.4 77 20 116/66 96 Room Air 11/25 1443 98.8 86 18 125/75 100 Room Air 11/25 1429 125/75 11/25 1427 98.6 11/25 1427 98.6 11/25 1416 99 Room Air 11/25 1239 101.2 103 20 133/73 96 Room Air 11/25 1236 100.4 11/25 1153 99.0 91 22 99 Room Air Intake & Output 11/26 1600 11/26 0800 11/26 0000 Intake Total 900 480 Output Total 750 200 Balance 150 280 Intake, IV 700 20 Intake, Oral 200 460 Output, Urine 750 200 Patient 230 lb Weight Weight Reported by Patient Measurement Method Physical Exam Other Physical Findings: He appears comfortable in no acute distress Lungs are clear Heart regular rhythm with no murmur Abdomen is soft, nontender with positive bowel sounds Extremities left hand and right BKA dressings intact Results Last 24 Hours of Lab Results: Laboratory Tests 11/26 11/26 0535 0535 Chemistry Sodium (137 - 145 mmol/L) 139 Potassium (3.5 - 5.1 mmol/L) 4.1 Chloride (98 - 107 mmol/L) 110 H Carbon Dioxide (22 - 30 mmol/L) 19 L Anion Gap (5 - 16) 10 BUN (9 - 20 mg/dL) 36 H Creatinine (0.7 - 1.2 mg/dL) 1.7 H Estimated GFR (>60 ml/min) 42 L BUN/Creatinine Ratio (7 - 25 %) 21.2 Troponin I (<0.11 ng/ml) 0.35 *H Hematology CBC w Diff NO MAN DIFF REQ WBC (4.8 - 10.8 /CUMM) 8.5 RBC (4.70 - 6.10 /CUMM) 4.61 L Hgb (14.0 - 18.0 G/DL) 12.5 L Hct (42 - 52 %) 39.2 L MCV (80.0 - 94.0 FL) 85.0 MCH (27.0 - 31.0 PG) 27.0 RDW (11.5 - 14.5 %) 17.0 H Plt Count (130 - 400 /CUMM) 129 L MPV (7.4 - 10.4 FL) 7.5 Gran % (42.2 - 75.2 %) 80.5 H Lymphocytes % (20.5 - 51.1 %) 7.9 L Monocytes % (1.7 - 9.3 %) 10.5 H Eosinophils % (0 - 5 %) 0.8 Basophils % (0.0 - 2.0 %) 0.3 Absolute Granulocytes (1.4 - 6.5 /CUMM) 6.8 H Absolute Lymphocytes (1.2 - 3.4 /CUMM) 0.7 L Absolute Monocytes (0.10 - 0.60 /CUMM) 0.9 H Absolute Eosinophils (0.0 - 0.7 /CUMM) 0.1 Absolute Basophils (0.0 - 0.2 /CUMM) 0 PUBS MCHC (33.0 - 37.0 G/DL) 31.8 L 11/26 11/25 11/25 0525 1951 1520 Chemistry Lactic Acid (0.7 - 2.1 mmol/L) 1.6 Troponin I (<0.11 ng/ml) 0.48 *H Urines Urinalysis LIGHT H Urine Color (YEL,AMB,STR) STRAW Urine Clarity (CLEAR) CLEAR Urine pH (5.0 - 8.0) 6.0 Ur Specific [place] (1.001 - 1.035) <= 1.005 Urine Protein (NEG,<30 MG/DL) 30 H Urine Ketones (NEG) NEG Urine Nitrite (NEG) NEG Urine Bilirubin (NEG) NEG Urine Urobilinogen (0.1 - 1.0 EU/dl) 0.2 Ur Leukocyte Esterase (NEG) SMALL H Ur Microscopic SEDIMENT EXAMINED Urine RBC (0 - 5 /HPF) 1-3 Urine WBC (0 - 2 /HPF) 10-15 H Urine Bacteria (NEG/NONE) RARE H Urine Hemoglobin (NEG) SMALL H Urine Glucose (N MG/DL) 100 H 11/25 11/25 1500 1215 Blood Gas pH (7.35 - 7.45 PH) 7.38 pCO2 (35 - 45 TORR) 28 L pO2 (80 - 100 TORR) 80 HCO3 (21 - 28 MEQ/L) 16 L ABG O2 Sat (Measured) (>96.0 %) 96.0 P-50 (Temp Corrected) NO Carboxyhemoglobin (1.5 - 5.0 %) 0.8 L O2 Concentration % RA Temperature (97.0 - 100.0 FARH) 98.8 O2 Delivery Method RA Chemistry Ammonia (9 - 30 umol/L) < 9 L Miscellaneous Phlebotomy Draw Site RIGHT BRACHIAL 11/25 1215 Blood Gas Bicarbonate Actual (22 - 26 MEQ/L) 16 L Mixed VBG pH (7.31 - 7.41 PH) 7.26 L Mixed VBG pCO2 (41 - 51 TORR) 37 L Mixed VBG O2 Saturation (35 - 45 TORR) 30 L P-50 (Temp Corrected) N Carboxyhemoglobin (1.5 - 5.0 %) 1.4 L O2 Concentration % RA Temperature (97.0 - 100.0 FARH) 100.4 H O2 Delivery Method RA Chemistry Sodium (137 - 145 mmol/L) 135 L Potassium (3.5 - 5.1 mmol/L) 4.8 Chloride (98 - 107 mmol/L) 103 Carbon Dioxide (22 - 30 mmol/L) 15 L Anion Gap (5 - 16) 17 H BUN (9 - 20 mg/dL) 43 H Creatinine (0.7 - 1.2 mg/dL) 2.2 H Estimated GFR (>60 ml/min) 31 L BUN/Creatinine Ratio (7 - 25 %) 19.5 Glucose (65 - 99 mg/dL) 255 H Lactic Acid (0.7 - 2.1 mmol/L) 4.9 H Calcium (8.4 - 10.2 mg/dL) 8.8 Total Bilirubin (0.2 - 1.3 mg/dL) 0.8 AST (17 - 59 U/L) 103 H ALT (21 - 72 U/L) 105 H Alkaline Phosphatase (< 127 U/L) 69 Troponin I (<0.11 ng/ml) 0.42 *H Total Protein (6.3 - 8.2 g/dL) 6.5 Albumin (3.5 - 5.0 g/dL) 3.8 Globulin (1.9 - 4.2 gm/dL) 2.7 Albumin/Globulin Ratio (1.1 - 2.2 %) 1.4 Coagulation PT (9.4 - 12.5 SEC) 12.6 H INR (0.90 - 1.17) 1.20 H APTT (25 - 37 SEC) 31 Hematology CBC w Diff MAN DIFF ORDERED WBC (4.8 - 10.8 /CUMM) 18.0 H RBC (4.70 - 6.10 /CUMM) 5.08 Hgb (14.0 - 18.0 G/DL) 13.7 L Hct (42 - 52 %) 42.9 MCV (80.0 - 94.0 FL) 84.5 MCH (27.0 - 31.0 PG) 26.9 L RDW (11.5 - 14.5 %) 16.9 H Plt Count (130 - 400 /CUMM) 158 MPV (7.4 - 10.4 FL) 6.9 L Gran % (42.2 - 75.2 %) 97.2 H Lymphocytes % (20.5 - 51.1 %) 1.5 L Monocytes % (1.7 - 9.3 %) 1.2 L Eosinophils % (0 - 5 %) 0.1 Basophils % (0.0 - 2.0 %) 0 L Absolute Granulocytes (1.4 - 6.5 /CUMM) 17.5 H Segmented Neutrophils (42.2 - 75.2 %) 90 H Band Neutrophils (0.0 - 5.0 %) 8 H Absolute Lymphocytes (1.2 - 3.4 /CUMM) 0.3 L Lymphocytes (20.5 - 51.1 %) 2 L Absolute Monocytes (0.10 - 0.60 /CUMM) 0.2 Absolute Eosinophils (0.0 - 0.7 /CUMM) 0 Absolute Basophils (0.0 - 0.2 /CUMM) 0 Platelet Estimate (ADEQUATE) ADEQUATE Anisocytosis 1+ PUBS MCHC (33.0 - 37.0 G/DL) 31.9 L Miscellaneous Phlebotomy Draw Site L ARM Toxicology Acetone Level (NEGATIVE) NEGATIVE Last 24 Hours of Ashish Results: Blood cultures November 25 negative Midline catheter tip culture November 25 greater than 15 colonies of gram-negative rods Urine culture November 26 pending Recent Imaging Studies: Ultrasound of the right BKA stump reveals a 1.9 x 0.5 x 2.5 cm fluid collection in the soft tissues which is heterogeneous appearing and concerning for an evolving abscess Assessment/Plan Impression: Improved on empiric treatment with Vancomycin and Meropenem, begun yesterday for possible sepsis, with temperatures and white blood cell count now normal and with renal function back to his baseline. Possible sources of sepsis include the midline catheter, which was pulled yesterday, with the catheter tip positive for more than 15 colonies of gram-negative rods, the right BKA stump, with a small collection noted on the ultrasound, status post revision 2 weeks prior to admission, or the left hand, status post completion of his left fifth finger amputation 2 weeks prior to admission. Of note it does not appear that he was restarted on steroids, which are part of his immunosuppressive regimen for his renal transplant. Suggestion: 1. Follow-up recent cultures 2. Plastic surgery evaluation of his right BKA stump and left hand 3. Will need to discuss with Plastics and/or IR regarding aspiration/drainage of the right BKA stump collection 4. Would resume his steroids 5. Continue Vancomycin and Meropenem pending above
--- NOTE | 2016-11-26 11:12 | PN- Housestaff ---
IRAIS COBURN,PRABHAKAR 11/26/16 1112: Subjective Follow-up For: Septicemia secondary to osteomyelitis Complaints: no complaints Tele-Events Since Last Visit: Normal sinus rhythm, heart rate between 57-72, PVCs Subjective: Patient is seen and examined at the bedside. He was much more aware about his condition. He denies of any headache, nausea, vomiting, fever, chills, chest pain, abdominal pain. He wanted to take a shower. We discussed about, that he needs to cover the wounds by plastic bags and then he can go to take shower. I advised the nurse to change the dressing after he had shower. He was much concern that his blood sugar is not well controlled. It should be below 200. He was also noted that he is on CellCept and according to his back tender cylinder, dose should be decreased to half. Review of Systems Constitutional: Denies: no symptoms. Objective Last 24 Hrs of Vital Signs/I&O Vital Signs Date Time Temp Pulse Resp B/P B/P Pulse O2 O2 Flow FiO2 Mean Ox Delivery Rate 11/26 1706 98.8 67 20 102/58 94 Room Air 11/26 0845 97.4 64 20 118/62 95 Room Air 11/26 0800 Room Air 11/26 0051 97.8 60 20 108/62 95 Room Air Intake & Output 11/26 1600 11/26 0800 11/26 0000 Intake Total 1800 900 480 Output Total 750 200 Balance 1800 150 280 Intake, IV 600 700 20 Intake, Oral 1200 200 460 Output, Urine 750 200 Patient 104.326 kg Weight Weight Reported by Patient Measurement Method Physical Exam General Appearance: Alert, Oriented X3, Cooperative, No Acute Distress Skin: pale Cardiovascular: Normal S1, Normal S2, murmur present Lungs: Clear to Auscultation, Normal Air Movement Abdomen: Soft, No Tenderness Neurological: Normal Speech Extremities: right below knee amputation, wound is big and apart, stiches are there, it is having red granulation tissue, with small yellow pus at ends. left hand wound, is dressed. Current Medications: Current Medications Sig/Margaret Start time Last Medication Dose Route Stop Time Status Admin Acetaminophen 1,000 MG Q6P PRN 11/25 1830 AC N/A 1 UNIT IV Aspirin Buffered 325 MG DAILY 11/26 1000 AC 11/26 PO 1054 Clopidogrel Bisulfate 75 MG DAILY 11/26 1000 AC 11/26 PO 1054 Diclofenac Sodium 1 MAGALY Q6PRN PRN 11/26 1345 AC TOP Diclofenac Sodium 0 4 TIMES/DAY 11/25 1800 DC 11/25 TOP 2137 Heparin Sodium 5,000 UNIT Q8 11/25 2200 AC 11/26 (Porcine) SC 1346 Insulin Aspart 10 UNITS 0800,1200,1700 11/26 1700 AC 11/26 GA 1715 Insulin Aspart 4 UNITS ONCE ONE 11/26 1345 DC 11/26 SC 11/26 1346 1230 Insulin Aspart 0 TIDAC/HS 11/26 1200 AC 11/26 GA 1716 Insulin Aspart 0 TIDAC 11/25 1700 DC 11/26 SC 0812 Insulin Detemir 70 UNITS 8AM 11/27 0800 SC Insulin Detemir 20 UNITS 2000 11/26 2000 AC SC Insulin Detemir 70 UNITS DAILY 11/26 1000 DC 11/26 SC 1055 Insulin Detemir 20 UNITS AT BEDTIME 11/25 2200 DC 11/25 GA 2137 Meropenem 1 GM IQ8 11/26 0000 AC 11/26 IV 1718 Mycophenolate Mofetil 500 MG BID 11/26 2200 PO Mycophenolate Mofetil 1,000 MG BID 11/25 2200 DC 11/26 PO 1054 Omeprazole 20 MG DAILY AC 11/26 0700 AC 11/26 PO 0631 Prednisone 5 MG DAILY 11/26 1113 AC 11/26 PO 1213 Sodium Chloride 1,000 ML Q13H 11/25 1700 AC 11/26 IV 1859 Tacrolimus 2 MG BID 11/25 2200 AC 11/26 PO 1054 Vancomycin HCl 1,000 MG DAILY@1400 11/26 1400 AC 11/26 Sodium Chloride 250 ML IV 1346 Vancomycin HCl 1,000 MG DAILY 11/26 1000 DC Sodium Chloride 250 ML IV Last 24 Hrs of Lab/Ashish Results Last 24 Hrs of Labs/Mics: Laboratory Tests 11/26/16 0535: Troponin I 0.35 *H 11/26/16 0535: Anion Gap 10, Estimated GFR 42 L, BUN/Creatinine Ratio 21.2, CBC w Diff NO MAN DIFF REQ, RBC 4.61 L, MCV 85.0, MCH 27.0, RDW 17.0 H, MPV 7.5, Gran % 80.5 H, Lymphocytes % 7.9 L, Monocytes % 10.5 H, Eosinophils % 0.8, Basophils % 0.3, Absolute Granulocytes 6.8 H, Absolute Lymphocytes 0.7 L, Absolute Monocytes 0.9 H, Absolute Eosinophils 0.1, Absolute Basophils 0, PUBS MCHC 31.8 L 11/26/16 0525: Urinalysis LIGHT H, Urine Color STRAW, Urine Clarity CLEAR, Urine pH 6.0, Ur Specific [place] <= 1.005, Urine Protein 30 H, Urine Ketones NEG, Urine Nitrite NEG, Urine Bilirubin NEG, Urine Urobilinogen 0.2, Ur Leukocyte Esterase SMALL H , Ur Microscopic SEDIMENT EXAMINED, Urine RBC 1-3, Urine WBC 10-15 H, Urine Bacteria RARE H, Urine Hemoglobin SMALL H, Urine Glucose 100 H Microbiology 11/26 0525 URINE ROUT: Urine Culture - RECD Assessment/Plan Assessment: Patient is a 56-year-old male presented with history of fever, chills, nausea and vomiting, onto pain, fever of 101 and leukocytosis/18,000 Assessment - Sepsis under evaluation probably osteomyelitis, catheter infection Diabetes Hypertension Coronary artery disease s/p MT,CABG, cardiomyopathy Irritable bowel syndrome ESRD s/p cadaveric renal transplant 6 year prior to admission on CellCept, Prograf, prednisone Peripheral vascular disease s/p right BKA and left 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 michaud -advised to continue injection Levemir 70U -20U, and add up standing dose of insulin 10U TID pre-meals and then insulin according to sliding scale to adjust blood sugar level. * We discussed with the plastic surgeon, and they advised to call if needed tmr and possibly Dr Herman on monday. * Discussed with Dr. Willis and according to him we should decrease the dose of tab CellCept from 1000mgs to 500 mgs twice a day per day. * Diet -diabetic carbohydrate type 1 * CODE STATUS -DNR/DNI Problem List: 1. Diabetes 2. Osteomyelitis 3. Transplanted kidney Pain Ratin Pain Location: Knee and hand Pain Goal: Remain pain free Pain Plan: avoid NSAIDs Tomorrow's Labs & Rationales: CBC, BEP-for follow-up DVT/Prophylaxis: mechanical, pharmacological COLTON MICHAUD 11/26/16 1112: Attending MD Review Statement Attending Statement Attending MD Statement: examined this patient, discuss w/resident/PA/BLOOD BANK CUSTODIAN, agreed w/resident/PA/BLOOD BANK CUSTODIAN, discussed with family, reviewed EMR data (avail), discussed with nursing, discussed with case mgmt, reviewed images, amended to note Attending Assessment/Plan: Patient admitted here for sepsis with impovement in leukocytosis and hemodynamics. ID following, abx as per ID. Plastic consult for BKA pending. ESRD with renal transplant on immunosuppressants, nephrology consult.
[2016-11-26 17:06] VITALS: BP 102/58
--- NOTE | 2016-11-26 17:07 | Cons- Nephrology ---
See Addendum General Information and HPI Consulting Request Date of Consult: 11/26/16 Requested By: HARMONY COBURN,MARK Reason for Consult: s/p renal transplant Source of Information: patient, old records Exam Limitations: no limitations History of Present Illness: The patient is a 56-year-old man with a past medical history most significant for end-stage renal disease which is now status post DDRT (6 years ago), peripheral vascular disease status post right BKA and left TMA, diabetes, hypertension, coronary artery disease status post CABG who presents with a 1 day history of fevers, chills, nausea, vomiting. 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 He has been treated with multiple courses of antibiotics in addition to amputation of the finger. Also during this time, he had a revision of his right lower extremity stump. The patient notes that his transplant sterilisation technician Dr. Boucher had discussed reducing his CellCept from 1000 mg twice a day to 500 mg twice a day (it had been held at varying times setting of infectious complications). He was actually going to do this once his current prescription ran out but ultimately ended up here. On presentation, patient was febrile to 101.2 with a blood pressure 133/73. What blood cell count 18.0. His creatinine was 2.2 (baseline and high ones). Initial lactate 4.9. Troponin 0.42->0.48->0.35. Blood cultures negative. He did have a midline catheter removed switched hip screw gram-negative rods. Ultrasound of the right AKA stump concerning for evolving abscess. He received intravenous fluid and his creatinine is back down to 1.6. He has been treated with vancomycin and meropenem. His white count is down to 8.5 and he is now afebrile. Plastic surgery has been consulted. The patient reports now feeling well. Allergies/Medications Allergies: Coded Allergies: nut - unspecified (Severe, SKIN ULCERATION, THROAT SWELLING 11/25/16) ULCERS IN THROAT cefepime (HIVES 11/25/16) darbepoetin sherley (From ARANESP (IN ALBUMIN)) (throat swells 11/09/16) linezolid (blurry vision 11/25/16) metformin (GI DISTRESS 11/25/16) ondansetron (From ZOFRAN ( HYDROCHLORIDE)) (irregular heartbeat 11/25/16) sulfamethoxazole (From BACTRIM) (KIDNEY ISSUES 11/25/16) trimethoprim (From BACTRIM) (KIDNEY ISSUES 11/25/16) grapefruit (DRUG INTERACTOINS 11/25/16) Home Med List: Aspirin (Ecotrin*) 325 MG TABLET.DR 1 TAB PO DAILY heart health (Reported) Cholecalciferol (Vitamin D3) (Vitamin D) 2,000 UNIT CAPSULE 1 CAP PO DAILY HEALTH SUPPLEMENT (Reported) Clopidogrel Bisulfate (Plavix) 75 MG TABLET 75 MG PO DAILY ANTI PLATELET . Insulin Aspart, Recombinant (Novolog Flexpen) 100 UNIT/ML INSULN.PEN 50 UNITS SC BID DIABETES (Reported) Insulin Glargine,Hum.rec.anlog (Lantus Solostar) 100 UNIT/ML (3 ML) INSULN.PEN 0 SC AD diabetes (Reported) 70 units in AM; 20 units at bedtime Mycophenolate Mofetil 500 MG TABLET 2 TAB PO BID IMMUNOSUPPRESSANT (Reported) Nitroglycerin (Minitran) 0.4 MG/HOUR PATCH.TD24 0.4 MG ACW DAILY CHEST PAIN ( Reported) Pantoprazole Sodium (Protonix) 20 MG TABLET.DR 1 TAB PO DAILY GERD (Reported) Prednisone 5 MG TABLET 1 TAB PO DAILY INFLAMMATION (Reported) Tacrolimus (Prograf) 0.5 MG CAPSULE 1 CAP PO QPM RENAL TRANSPLANT (Reported) Tacrolimus 1 MG CAPSULE 2 CAP PO BID ANTI-REJECTION (Reported) Current Medications: Current Medications Sig/Margaret Start time Last Medication Dose Route Stop Time Status Admin Acetaminophen 1,000 MG Q6P PRN 11/25 1830 AC N/A 1 UNIT IV Aspirin Buffered 325 MG DAILY 11/26 1000 AC 11/26 PO 1054 Clopidogrel Bisulfate 75 MG DAILY 11/26 1000 AC 11/26 PO 1054 Diclofenac Sodium 1 MAGALY Q6PRN PRN 11/26 1345 AC TOP Diclofenac Sodium 0 4 TIMES/DAY 11/25 1800 DC 11/25 TOP 2137 Heparin Sodium 5,000 UNIT Q8 11/25 2200 AC 11/26 (Porcine) SC 1346 Ibuprofen 400 MG Q8P PRN 11/25 1415 DC PO Insulin Aspart 10 UNITS 0800,1200,1700 11/26 1700 AC SC Insulin Aspart 4 UNITS ONCE ONE 11/26 1345 DC 11/26 MD 11/26 1346 1230 Insulin Aspart 0 TIDAC/HS 11/26 1200 AC 11/26 SC 1212 Insulin Aspart 0 TIDAC 11/25 1700 [place] 11/26 SC 0812 Insulin Detemir 70 UNITS 8AM 11/27 0800 AC SC Insulin Detemir 20 UNITS 2000 11/26 2000 AC SC Insulin Detemir 70 UNITS DAILY 11/26 1000 DC 11/26 SC 1055 Insulin Detemir 20 UNITS AT BEDTIME 11/25 2200 [place] 11/25 SC 2137 Meropenem 1 GM IQ8 11/26 0000 AC 11/26 IV 0812 Mycophenolate Mofetil 500 MG BID 11/26 2200 AC PO Mycophenolate Mofetil 1,000 MG BID 11/25 2200 DC 11/26 PO 1054 Omeprazole 20 MG DAILY AC 11/26 0700 AC 11/26 PO 0631 Oxycodone HCl 5 MG Q6P PRN 11/25 1415 DC PO Prednisone 5 MG DAILY 11/26 1113 AC 11/26 PO 1213 Sodium Chloride 1,000 ML Q13H 11/25 1700 AC 11/26 IV 0811 Tacrolimus 2 MG BID 11/25 2200 AC 11/26 PO 1054 Vancomycin HCl 1,000 MG DAILY@1400 11/26 1400 AC 11/26 Sodium Chloride 250 ML IV 1346 Vancomycin HCl 1,000 MG DAILY 11/26 1000 DC Sodium Chloride 250 ML IV Review of Systems Review of Systems: Complete 14 point ROS neg except as per HPI Past History Travel History Traveled to [place] past 21 day No Medical History Blood Transfusion Hx: Yes Neurological: NONE EENT: NONE Cardiovascular: CAD, cardiomyopathy, hypertension, myocardial infarction, peripheral vascular disease Respiratory: NONE Gastrointestinal: irritable bowel syndrome, DIVERTICULITIS Hepatic: NONE Renal: chronic kidney disease, renal transplant, OLD CLOTTED AVF L ARM Musculoskeletal: 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 Home Who Do You Live With? child Services at Home: Nursing Primary Language: Japanese Smoking Status: Former Smoker ETOH Use: denies use Illicit Drug Use: denies illicit drug use Functional Ability ADLs Independent: dressing, eating. Needs Assist: toileting, bathing. Ambulation: WHEELCHAIR IADLs Independent: finances, food prep, telephone, medication admin. Needs Assist: shopping, housework, transportation. Exam & Diagnostic Data Vital Signs and I&O Vital Signs Date Time Temp Pulse Resp B/P B/P Pulse O2 O2 Flow FiO2 Mean Ox Delivery Rate 11/26 0845 97.4 64 20 118/62 95 Room Air 11/26 0800 Room Air 11/26 0051 97.8 60 20 108/62 95 Room Air Intake & Output 11/26 1600 11/26 0400 11/25 1600 11/25 0400 11/24 1600 11/24 0400 Intake Total 2700 480 1000 Output Total 750 200 Balance 4793 571 7366 Intake, IV 1300 20 1000 Intake, Oral 1400 460 Output, Urine 750 200 Patient 230 lb Weight Weight Reported by Patient Measurement Method Physical Exam: Gen - NAD Head - NCAT Eyes - anicteric sclera, EOMI Neck - supple, no LAD CV - RRR, no m/r/g Chest - clear, no w/r/r Abd - soft, nontender Upper ext - L hand wrapped s/p amputation of finger Lower ext - R BKA, LLE TMA Skin - some chronic skin changes on legs Neuro - AOX3, grossly nonfocal Results Pertinent Lab Results: Laboratory Tests 11/26 11/26 0535 0535 Chemistry Sodium (137 - 145 mmol/L) 139 Potassium (3.5 - 5.1 mmol/L) 4.1 Chloride (98 - 107 mmol/L) 110 H Carbon Dioxide (22 - 30 mmol/L) 19 L Anion Gap (5 - 16) 10 BUN (9 - 20 mg/dL) 36 H Creatinine (0.7 - 1.2 mg/dL) 1.7 H Estimated GFR (>60 ml/min) 42 L BUN/Creatinine Ratio (7 - 25 %) 21.2 Troponin I (<0.11 ng/ml) 0.35 *H Hematology CBC w Diff NO MAN DIFF REQ WBC (4.8 - 10.8 /CUMM) 8.5 RBC (4.70 - 6.10 /CUMM) 4.61 L Hgb (14.0 - 18.0 G/DL) 12.5 L Hct (42 - 52 %) 39.2 L MCV (80.0 - 94.0 FL) 85.0 MCH (27.0 - 31.0 PG) 27.0 RDW (11.5 - 14.5 %) 17.0 H Plt Count (130 - 400 /CUMM) 129 L MPV (7.4 - 10.4 FL) 7.5 Gran % (42.2 - 75.2 %) 80.5 H Lymphocytes % (20.5 - 51.1 %) 7.9 L Monocytes % (1.7 - 9.3 %) 10.5 H Eosinophils % (0 - 5 %) 0.8 Basophils % (0.0 - 2.0 %) 0.3 Absolute Granulocytes (1.4 - 6.5 /CUMM) 6.8 H Absolute Lymphocytes (1.2 - 3.4 /CUMM) 0.7 L Absolute Monocytes (0.10 - 0.60 /CUMM) 0.9 H Absolute Eosinophils (0.0 - 0.7 /CUMM) 0.1 Absolute Basophils (0.0 - 0.2 /CUMM) 0 PUBS MCHC (33.0 - 37.0 G/DL) 31.8 L 11/26 11/25 11/25 0525 1951 1520 Chemistry Lactic Acid (0.7 - 2.1 mmol/L) 1.6 Troponin I (<0.11 ng/ml) 0.48 *H Urines Urinalysis LIGHT H Urine Color (YEL,AMB,STR) STRAW Urine Clarity (CLEAR) CLEAR Urine pH (5.0 - 8.0) 6.0 Ur Specific [place] (1.001 - 1.035) <= 1.005 Urine Protein (NEG,<30 MG/DL) 30 H Urine Ketones (NEG) NEG Urine Nitrite (NEG) NEG Urine Bilirubin (NEG) NEG Urine Urobilinogen (0.1 - 1.0 EU/dl) 0.2 Ur Leukocyte Esterase (NEG) SMALL H Ur Microscopic SEDIMENT EXAMINED Urine RBC (0 - 5 /HPF) 1-3 Urine WBC (0 - 2 /HPF) 10-15 H Urine Bacteria (NEG/NONE) RARE H Urine Hemoglobin (NEG) SMALL H Urine Glucose (N MG/DL) 100 H 11/25 11/25 1500 1215 Blood Gas pH (7.35 - 7.45 PH) 7.38 pCO2 (35 - 45 TORR) 28 L pO2 (80 - 100 TORR) 80 HCO3 (21 - 28 MEQ/L) 16 L ABG O2 Sat (Measured) (>96.0 %) 96.0 P-50 (Temp Corrected) NO Carboxyhemoglobin (1.5 - 5.0 %) 0.8 L O2 Concentration % RA Temperature (97.0 - 100.0 FARH) 98.8 O2 Delivery Method RA Chemistry Ammonia (9 - 30 umol/L) < 9 L Miscellaneous Phlebotomy Draw Site RIGHT BRACHIAL 11/25 1215 Blood Gas Bicarbonate Actual (22 - 26 MEQ/L) 16 L Mixed VBG pH (7.31 - 7.41 PH) 7.26 L Mixed VBG pCO2 (41 - 51 TORR) 37 L Mixed VBG O2 Saturation (35 - 45 TORR) 30 L P-50 (Temp Corrected) N Carboxyhemoglobin (1.5 - 5.0 %) 1.4 L O2 Concentration % RA Temperature (97.0 - 100.0 FARH) 100.4 H O2 Delivery Method RA Chemistry Sodium (137 - 145 mmol/L) 135 L Potassium (3.5 - 5.1 mmol/L) 4.8 Chloride (98 - 107 mmol/L) 103 Carbon Dioxide (22 - 30 mmol/L) 15 L Anion Gap (5 - 16) 17 H BUN (9 - 20 mg/dL) 43 H Creatinine (0.7 - 1.2 mg/dL) 2.2 H Estimated GFR (>60 ml/min) 31 L BUN/Creatinine Ratio (7 - 25 %) 19.5 Glucose (65 - 99 mg/dL) 255 H Lactic Acid (0.7 - 2.1 mmol/L) 4.9 H Calcium (8.4 - 10.2 mg/dL) 8.8 Total Bilirubin (0.2 - 1.3 mg/dL) 0.8 AST (17 - 59 U/L) 103 H ALT (21 - 72 U/L) 105 H Alkaline Phosphatase (< 127 U/L) 69 Troponin I (<0.11 ng/ml) 0.42 *H Total Protein (6.3 - 8.2 g/dL) 6.5 Albumin (3.5 - 5.0 g/dL) 3.8 Globulin (1.9 - 4.2 gm/dL) 2.7 Albumin/Globulin Ratio (1.1 - 2.2 %) 1.4 Coagulation PT (9.4 - 12.5 SEC) 12.6 H INR (0.90 - 1.17) 1.20 H APTT (25 - 37 SEC) 31 Hematology CBC w Diff MAN DIFF ORDERED WBC (4.8 - 10.8 /CUMM) 18.0 H RBC (4.70 - 6.10 /CUMM) 5.08 Hgb (14.0 - 18.0 G/DL) 13.7 L Hct (42 - 52 %) 42.9 MCV (80.0 - 94.0 FL) 84.5 MCH (27.0 - 31.0 PG) 26.9 L RDW (11.5 - 14.5 %) 16.9 H Plt Count (130 - 400 /CUMM) 158 MPV (7.4 - 10.4 FL) 6.9 L Gran % (42.2 - 75.2 %) 97.2 H Lymphocytes % (20.5 - 51.1 %) 1.5 L Monocytes % (1.7 - 9.3 %) 1.2 L Eosinophils % (0 - 5 %) 0.1 Basophils % (0.0 - 2.0 %) 0 L Absolute Granulocytes (1.4 - 6.5 /CUMM) 17.5 H Segmented Neutrophils (42.2 - 75.2 %) 90 H Band Neutrophils (0.0 - 5.0 %) 8 H Absolute Lymphocytes (1.2 - 3.4 /CUMM) 0.3 L Lymphocytes (20.5 - 51.1 %) 2 L Absolute Monocytes (0.10 - 0.60 /CUMM) 0.2 Absolute Eosinophils (0.0 - 0.7 /CUMM) 0 Absolute Basophils (0.0 - 0.2 /CUMM) 0 Platelet Estimate (ADEQUATE) ADEQUATE Anisocytosis 1+ PUBS MCHC (33.0 - 37.0 G/DL) 31.9 L Miscellaneous Phlebotomy Draw Site L ARM Toxicology Acetone Level (NEGATIVE) NEGATIVE Imaging/Other Studies: EXAM TYPE: RAD - XRY-PORTABLE CHEST XRAY EXAMINATION: XR PORTABLE CHEST CLINICAL INFORMATION: Fever and chills. COMPARISON: CXR from 11/11/2016. Abdomen CT from 11/14/2016. TECHNIQUE: Portable frontal view of the chest was obtained. FINDINGS: Lungs are hypoexpanded and there is mild interstitial prominence in lower lung zones, similar compared to 11/11/2016. Nonspecific linear opacities in the bases from mild atelectasis or possibly infiltrates, not appreciably changed from the prior exam. No new, focal airspace opacification. Small bilateral pleural effusions were present on 11/14/2016 but these are not detected on this single frontal view. Cardiac silhouette is borderline enlarged and there is stable prominence of central pulmonary vessels. Sternotomy wires remain intact. The visualized bones are intact. IMPRESSION: Lungs are hypoinflated. The linear opacities from atelectasis and/or mild infiltrates in the bases are not appreciably changed compared to 11/11/2016. EXAM TYPE: US - US-SUPERFICIAL IMAGING EXTREMI EXAMINATION: US SUPERFICIAL IMAGING, EXTREMITY CLINICAL INFORMATION: Sepsis of unknown etiology. History of right BKA revision with open wound and drainage. COMPARISON: None TECHNIQUE: Grayscale and color Doppler imaging labeled right BKA stump. FINDINGS: There is a 1.9 x 0.5 x 2.5 cm fluid collection in the soft tissues which is heterogeneous appearing and concerning for an evolving abscess given the clinical findings noted above. IMPRESSION: Probable small abscess. Surgical consultation and correlation is recommended. Assessment/Plan Assessment/Recommendations Assessment: ESRD s/p DDRT - On tacrolimus, cellcept, and prednisone. In speaking with the patient, given his infectious issues, his transplant Fur Buyer had recommended decreasing his immunosuppression so that his cellcept dose would be 500mg BID. I don't think that his current infection warrants discontinuing the cellcept completely unless he were to clinically worsen. I would continue the tacrolimus and Prednisone at his home doses. PVD - s/p BKA and TMA. DM HTN CAD s/p CABG - ?Incidental trop elevation. Pt did not relay hx of chest pain. Thought to be related to demand ischemia in the setting of sepsis. Downtrended Recommendations: -Cont tacrolimus at home dose -Cont prednisone at home dose -Can reduce Cellcept to 500mg BID -Please let me know if he clinically worsens or becomes NPO as meds may need to be adjusted Please call [phone] with ?'s
--- NOTE | 2016-11-26 19:20 | PN- Cardiology ---
Subjective Subjective: Feels improved overall. No specific complaints. Objective Vital Signs and I&Os Vital Signs Date Time Temp Pulse Resp B/P B/P Pulse O2 O2 Flow FiO2 Mean Ox Delivery Rate 11/26 1706 98.8 67 20 102/58 94 Room Air 11/26 0845 97.4 64 20 118/62 95 Room Air 11/26 0800 Room Air 11/26 0051 97.8 60 20 108/62 95 Room Air Intake & Output 11/26 1600 11/26 0800 11/26 0000 11/25 1600 11/25 0800 11/25 0000 Intake Total 1800 036 164 3119 Output Total 750 200 Balance 1800 955 432 2392 Intake, IV 600 334 24 4169 Intake, Oral 1200 200 460 Output, Urine 750 200 Patient 230 lb Weight Weight Reported by Patient Measurement Method Physical Exam: Well-developed, obese middle-aged male in no acute distress. Vital signs: See above. Neck: No JVD, no bruits. Lungs: Clear to auscultation. Heart: S1, S2 Abdomen: Soft, nontender, positive bowel sounds. E.xtremities: Bandaged left hand. No significant left lower extremity edema. Current Medications: Current Medications Sig/Margaret Start time Last Medication Dose Route Stop Time Status Admin Acetaminophen 1,000 MG Q6P PRN 11/25 1830 AC N/A 1 UNIT IV Aspirin Buffered 325 MG DAILY 11/26 1000 AC 11/26 PO 1054 Clopidogrel Bisulfate 75 MG DAILY 11/26 1000 AC 11/26 PO 1054 Diclofenac Sodium 1 MAGALY Q6PRN PRN 11/26 1345 AC TOP Diclofenac Sodium 0 4 TIMES/DAY 11/25 1800 DC 11/25 TOP 2137 Heparin Sodium 5,000 UNIT Q8 11/25 2200 AC 11/26 (Porcine) SC 1346 Insulin Aspart 10 UNITS 0800,1200,1700 11/26 1700 AC 11/26 SC 1715 Insulin Aspart 4 UNITS ONCE ONE 11/26 1345 DC 11/26 SC 11/26 1346 1230 Insulin Aspart 0 TIDAC/HS 11/26 1200 AC 11/26 SC 1716 Insulin Aspart 0 TIDAC 11/25 1700 DC 11/26 SC 0812 Insulin Detemir 70 UNITS 8AM 11/27 0800 AC SC Insulin Detemir 20 UNITS 2000 11/26 2000 AC SC Insulin Detemir 70 UNITS DAILY 11/26 1000 DC 11/26 SC 1055 Insulin Detemir 20 UNITS AT BEDTIME 11/25 2199 [place] 11/25 SC 2137 Meropenem 1 GM IQ8 11/26 0000 AC 11/26 IV 1718 Mycophenolate Mofetil 500 MG BID 11/26 2199 PO Mycophenolate Mofetil 1,000 MG BID 11/25 220 DC 11/26 PO 1054 Omeprazole 20 MG DAILY AC 11/26 0700 AC 11/26 PO 0631 Prednisone 5 MG DAILY 11/26 1113 AC 11/26 PO 1213 Sodium Chloride 1,000 ML Q13H 11/25 1700 AC 11/26 IV 0811 Tacrolimus 2 MG BID 11/25 220 AC 11/26 PO 1054 Vancomycin HCl 1,000 MG DAILY@1400 11/26 1400 AC 11/26 Sodium Chloride 250 ML IV 1346 Vancomycin HCl 1,000 MG DAILY 11/26 1000 DC Sodium Chloride 250 ML IV Results Last 48 Hrs of Labs/Mics: Laboratory Tests 11/26/16 0535: Troponin I 0.35 *H 11/26/16 0535: Anion Gap 10, Estimated GFR 42 L, BUN/Creatinine Ratio 21.2, CBC w Diff NO MAN DIFF REQ, RBC 4.61 L, MCV 85.0, MCH 27.0, RDW 17.0 H, MPV 7.5, Gran % 80.5 H, Lymphocytes % 7.9 L, Monocytes % 10.5 H, Eosinophils % 0.8, Basophils % 0.3, Absolute Granulocytes 6.8 H, Absolute Lymphocytes 0.7 L, Absolute Monocytes 0.9 H, Absolute Eosinophils 0.1, Absolute Basophils 0, PUBS MCHC 31.8 L 11/26/16 0525: Urinalysis LIGHT H, Urine Color STRAW, Urine Clarity CLEAR, Urine pH 6.0, Ur Specific [place] <= 1.005, Urine Protein 30 H, Urine Ketones NEG, Urine Nitrite NEG, Urine Bilirubin NEG, Urine Urobilinogen 0.2, Ur Leukocyte Esterase SMALL H , Ur Microscopic SEDIMENT EXAMINED, Urine RBC 1-3, Urine WBC 10-15 H, Urine Bacteria RARE H, Urine Hemoglobin SMALL H, Urine Glucose 100 H 11/25/16 1951: Troponin I 0.48 *H 11/25/16 1520: Lactic Acid 1.6 11/25/16 1500: pH 7.38, pCO2 28 L, pO2 80, HCO3 16 L, ABG O2 Sat (Measured) 96.0, P-50 (Temp Corrected) NO, Carboxyhemoglobin 0.8 L, O2 Concentration % RA, Temperature 98.8 , O2 Delivery Method RA, Phlebotomy Draw Site RIGHT BRACHIAL 11/25/16 1215: Ammonia < 9 L 11/25/16 1215: Bicarbonate Actual 16 L, Mixed VBG pH 7.26 L, Mixed VBG pCO2 37 L, Mixed VBG O2 Saturation 30 L, P-50 (Temp Corrected) N, Carboxyhemoglobin 1.4 L, O2 Concentration % RA, Temperature 100.4 H, O2 Delivery Method RA, Anion Gap 17 H , Estimated GFR 31 L, BUN/Creatinine Ratio 19.5, Glucose 255 H, Lactic Acid 4.9 H, Calcium 8.8, Total Bilirubin 0.8, AST 103 H, ALT 105 H, Alkaline Phosphatase 69, Troponin I 0.42 *H, Total Protein 6.5, Albumin 3.8, Globulin 2.7 , Albumin/Globulin Ratio 1.4, PT 12.6 H, INR 1.20 H, APTT 31, CBC w Diff MAN DIFF ORDERED, RBC 5.08, MCV 84.5, MCH 26.9 L, RDW 16.9 H, MPV 6.9 L, Gran % 97.2 H, Lymphocytes % 1.5 L, Monocytes % 1.2 L, Eosinophils % 0.1, Basophils % 0 L, Absolute Granulocytes 17.5 H, Segmented Neutrophils 90 H, Band Neutrophils 8 H, Absolute Lymphocytes 0.3 L, Lymphocytes 2 L, Absolute Monocytes 0.2, Absolute Eosinophils 0, Absolute Basophils 0, Platelet Estimate ADEQUATE, Anisocytosis 1+, PUBS MCHC 31.9 L, Phlebotomy Draw Site L ARM, Acetone Level NEGATIVE Recent Imaging Studies: Left hand x-ray (11/25/2016): Status post amputation of the fifth digit. There is soft tissue swelling surrounding the head of the fifth metacarpal without underlying bony erosions identified. Assessment/Plan Assessment/Plan 56 [id number]-w-m w/ hx HTN, DM, previous ESRD s/p cadaveric renal transplantation, PVD s/p right BKA, left TMA, & CAD s/p MS w/ CABG x 2, and stress induced cardiomyopathy who presented w/ intravascular depletion and suspected sepsis. Recommendations: * Continue on telemetry, strict inputs/outputs, etc. * Follow-up cultures and ID recommendations. * Plastic surgery consultation for further evaluation of right BKA stump and left hand. * DVT prophylaxis. Continue telemetry? Yes
[2016-11-27 01:32] VITALS: BP 98/54
[2016-11-27 08:04] VITALS: BP 142/78
[2016-11-27 08:27] LABS: ABSOLUTE BASOPHIL COUNT 0 /CUMM (0.0-0.2); ABSOLUTE EOSINOPHIL COUNT 0.2 /CUMM (0.0-0.7); ABSOLUTE GRANULOCYTE CT 5.4 /CUMM (1.4-6.5); ABSOLUTE LYMPH COUNT 1.1 /CUMM (1.2-3.4); ABSOLUTE MONOCYTE COUNT 0.8 /CUMM (0.10-0.60); BASOPHIL % 0.2 % (0.0-2.0); EOSINOPHIL % 2.3 % (0-5); GRANULOCYTE % 72.2 % (42.2-75.2); HEMATOCRIT 36.1 % (42-52); MEAN CORPUSCULAR HGB 27.5 PG (27.0-31.0); MEAN CORPUSCULAR HGB CONC 32.1 G/DL (33.0-37.0); MEAN CORPUSCULAR VOLUME 85.8 FL (80.0-94.0); MEAN PLATELET VOLUME 7.8 FL (7.4-10.4); PLATELET COUNT 141 /CUMM (130-400); RBC DISTRIBUTION WIDTH 16.9 % (11.5-14.5); RED BLOOD CELL CT 4.21 /CUMM (4.70-6.10); WHITE BLOOD CELL COUNT 7.5 /CUMM (4.8-10.8)
--- NOTE | 2016-11-27 09:15 | PN- Housestaff ---
ZANE COBURN,ALEXANDRE 11/27/16 0915: Subjective Follow-up For: Septicemia, secondary to OM Complaints: no complaints Tele-Events Since Last Visit: Sinus bradycardia, heart rate ranging from 5155, no overnight event. Subjective: I followed up the patient today. He was resting comfortably in his bed, not in distress, his only complaint being right lower quadrant mild pain, which subsided with Tylenol intake. Overnight his vitals have been stable, no issues. Of note, his catheter tip culture is growing Enterobacter. The patient is on meropenem and vancomycin, and ID is following as well. Review of Systems Constitutional: Reports: see HPI. Objective Last 24 Hrs of Vital Signs/I&O Vital Signs Date Time Temp Pulse Resp B/P B/P Pulse O2 O2 Flow FiO2 Mean Ox Delivery Rate 11/27 1645 98.0 56 16 110/70 97 Room Air 11/27 0804 97.9 68 20 142/78 98 Room Air 11/27 0132 98.2 52 20 98/54 97 Room Air Intake & Output 11/27 1600 11/27 0800 11/27 0000 Intake Total 1650 1000 1400 Output Total 600 Balance 1650 1000 800 Intake, IV 450 600 600 Intake, Oral 1200 400 800 Number 1 Bowel Movements Output, Urine 600 Physical Exam General Appearance: Alert, Oriented X3, Cooperative, No Acute Distress Other Physical Findings: No change from yesterday. Right lower quadrant exam normal. Current Medications: Current Medications Sig/Margaret Start time Last Medication Dose Route Stop Time Status Admin Acetaminophen 500 MG Q6P PRN 11/27 1100 AC 11/27 PO 1114 Acetaminophen 1,000 MG Q6P PRN 11/25 1830 AC N/A 1 UNIT IV Aspirin Buffered 325 MG DAILY 11/26 1000 AC 11/27 PO 1050 Clopidogrel Bisulfate 75 MG DAILY 11/26 1000 AC 11/27 PO 1050 Diclofenac Sodium 1 MAGALY Q6PRN PRN 11/26 1345 AC TOP Heparin Sodium 5,000 UNIT Q8 11/25 2200 AC 11/27 (Porcine) SC 2147 Insulin Aspart 10 UNITS 0800,1200,1700 11/26 1700 AC 11/27 SC 1652 Insulin Aspart 0 TIDAC/HS 11/26 1200 AC 11/27 SC 2145 Insulin Detemir 70 UNITS 8AM 11/27 0800 AC 11/27 SC 0833 Insulin Detemir 20 UNITS 11/26 AC 11/27 SC 2145 Meropenem 1 GM IQ8 11/26 0000 AC 11/27 IV 1652 Mycophenolate Mofetil 500 MG BID 11/26 2200 AC 11/27 PO 2147 Omeprazole 20 MG DAILY AC 11/26 0700 AC 11/27 PO 0629 Prednisone 5 MG DAILY 11/26 1113 AC 11/27 PO 1050 Sodium Chloride 1,000 ML Q13H 11/25 1700 DC 11/27 IV 0000 Tacrolimus 1 MG AT BEDTIME 11/27 220 AC 11/27 PO 214 Tacrolimus 1.5 MG DAILY 11/27 1000 AC 11/27 PO 1050 Tacrolimus 2 MG BID 11/25 220 DC 11/26 PO 2208 Vancomycin HCl 1,000 MG DAILY@1400 11/26 1400 AC 11/27 Sodium Chloride 250 ML IV 1359 Last 24 Hrs of Lab/Ashish Results Last 24 Hrs of Labs/Mics: Laboratory Tests 11/27/16 0632: Anion Gap 7, Estimated GFR 48 L, BUN/Creatinine Ratio 20.7, CBC w Diff NO MAN DIFF REQ, RBC 4.21 L, MCV 85.8, MCH 27.5, RDW 16.9 H, MPV 7.8, Gran % 72.2, Lymphocytes % 14.7 L, Monocytes % 10.6 H, Eosinophils % 2.3, Basophils % 0.2, Absolute Granulocytes 5.4, Absolute Lymphocytes 1.1 L, Absolute Monocytes 0.8 H, Absolute Eosinophils 0.2, Absolute Basophils 0, PUBS MCHC 32.1 L Assessment/Plan Assessment: Patient is a 56-year-old male presented with history of fever, chills, nausea and vomiting, onto pain, fever of 101 and leukocytosis/18,000 Assessment - Sepsis under evaluation probably osteomyelitis, catheter infection Diabetes Hypertension Coronary artery disease s/p [place],CABG, cardiomyopathy Irritable bowel syndrome ESRD s/p cadaveric renal transplant 6 year prior to admission on CellCept, Prograf, prednisone Peripheral vascular disease s/p right BKA and 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 * Discussed with Dr. Willis who had advised to decrease the dose of CellCept from 1000mgs to 500 mgs twice a day per day yesterday. Today, he did not offer any more suggestion. He is aware of the RLQ abd pain, that could have his transplanted kidney. Nephrology will follow the patient. * Diet -diabetic carbohydrate type 1 * CODE STATUS -DNR/DNI Problem List: 1. Osteomyelitis 2. Diabetes 3. Renal failure Pain Ratin Pain Location: RLQ mild not present anymore Pain Goal: Pain 4 or less Pain Plan: prn Tomorrow's Labs & Rationales: BEP, CBC ODILIA,FAYEELZA 11/27/16 1223: Attending MD Review Statement Attending Statement Attending MD Statement: examined this patient, discuss w/resident/PA/MEDICAL ASSOCIATE, agreed w/resident/PA/MEDICAL ASSOCIATE, discussed with family, reviewed EMR data (avail), discussed with nursing, discussed with case mgmt, reviewed images, amended to note Attending Assessment/Plan: Patient admitted here for sepsis with impovement in leukocytosis and hemodynamics. ID following, abx as per ID. Plastic consult for BKA pending. ESRD with renal transplant on immunosuppressants, nephrology consulted reduced cellcept dose and c/w rest of immunosuppressants.
[2016-11-27 16:45] VITALS: BP 110/70
--- NOTE | 2016-11-27 19:57 | PN- Cardiology ---
Subjective Subjective: No new complaints. Mild discomfort in left hand and right BKA site. Objective Vital Signs and I&Os Vital Signs Date Time Temp Pulse Resp B/P B/P Pulse O2 O2 Flow FiO2 Mean Ox Delivery Rate 11/27 1645 98.0 56 16 110/70 97 Room Air 11/27 0804 97.9 68 20 142/78 98 Room Air 11/27 0132 98.2 52 20 98/54 97 Room Air Intake & Output 11/27 1600 11/27 0800 11/27 0000 11/26 1600 11/26 0811/26 0000 Intake Total 1650 1000 1400 1800 900 480 Output Total 600 750 200 Balance 1650 5030 302 1479 150 280 Intake, IV 450 600 600 600 700 20 Intake, Oral 1200 960 782 0450 200 460 Number 1 Bowel Movements Output, Urine 600 750 200 Patient 230 lb Weight Weight Reported by Patient Measurement Method Physical Exam: Well-developed, obese middle-aged male in no acute distress. Vital signs: See above. Neck: No JVD, no bruits. Lungs: Clear to auscultation. Heart: S1, S2 Abdomen: Soft, nontender, positive bowel sounds. E.xtremities: Bandaged left hand Current Medications: Current Medications Sig/Margaret Start time Last Medication Dose Route Stop Time Status Admin Acetaminophen 500 MG Q6P PRN 11/27 1100 AC 11/27 PO 1114 Acetaminophen 1,000 MG Q6P PRN 11/25 1830 AC N/A 1 UNIT IV Aspirin Buffered 325 MG DAILY 11/26 1000 AC 11/27 PO 1050 Clopidogrel Bisulfate 75 MG DAILY 11/26 1000 AC 11/27 PO 1050 Diclofenac Sodium 1 MAGALY Q6PRN PRN 11/26 1345 AC TOP Heparin Sodium 5,000 UNIT Q8 11/25 2200 AC 11/27 (Porcine) SC 1358 Insulin Aspart 10 UNITS 0800,1200,1700 11/26 1700 AC 11/27 SC 1652 Insulin Aspart 0 TIDAC/HS 11/26 1200 AC 11/26 SC 2209 Insulin Detemir 70 UNITS 8AM 11/27 0800 AC 11/27 SC 0833 Insulin Detemir 20 UNITS 2000 11/26 2000 AC 11/26 SC 2209 Meropenem 1 GM IQ8 11/26 0000 AC 11/27 IV 1652 Mycophenolate Mofetil 500 MG BID 11/26 2200 AC 11/27 PO 1049 Omeprazole 20 MG DAILY AC 11/26 0700 AC 11/27 PO 0629 Prednisone 5 MG DAILY 11/26 1113 AC 11/27 PO 1050 Sodium Chloride 1,000 ML Q13H 11/25 1700 DC 11/27 IV 0000 Tacrolimus 1 MG AT BEDTIME 11/27 220 AC PO Tacrolimus 1.5 MG DAILY 11/27 1000 AC 11/27 PO 1050 Tacrolimus 2 MG BID 11/25 220 DC 11/26 PO 2208 Vancomycin HCl 1,000 MG DAILY@1400 11/26 1400 AC 11/27 Sodium Chloride 250 ML IV 1359 Results Last 48 Hrs of Labs/Mics: Laboratory Tests 11/27/16 0632: Anion Gap 7, Estimated GFR 48 L, BUN/Creatinine Ratio 20.7, CBC w Diff NO MAN DIFF REQ, RBC 4.21 L, MCV 85.8, MCH 27.5, RDW 16.9 H, MPV 7.8, Gran % 72.2, Lymphocytes % 14.7 L, Monocytes % 10.6 H, Eosinophils % 2.3, Basophils % 0.2, Absolute Granulocytes 5.4, Absolute Lymphocytes 1.1 L, Absolute Monocytes 0.8 H, Absolute Eosinophils 0.2, Absolute Basophils 0, PUBS MCHC 32.1 L 11/26/16 0535: Troponin I 0.35 *H 11/26/16 0535: Anion Gap 10, Estimated GFR 42 L, BUN/Creatinine Ratio 21.2, CBC w Diff NO MAN DIFF REQ, RBC 4.61 L, MCV 85.0, MCH 27.0, RDW 17.0 H, MPV 7.5, Gran % 80.5 H, Lymphocytes % 7.9 L, Monocytes % 10.5 H, Eosinophils % 0.8, Basophils % 0.3, Absolute Granulocytes 6.8 H, Absolute Lymphocytes 0.7 L, Absolute Monocytes 0.9 H, Absolute Eosinophils 0.1, Absolute Basophils 0, PUBS MCHC 31.8 L 11/26/16 0525: Urinalysis LIGHT H, Urine Color STRAW, Urine Clarity CLEAR, Urine pH 6.0, Ur Specific Erwin <= 1.005, Urine Protein 30 H, Urine Ketones NEG, Urine Nitrite NEG, Urine Bilirubin NEG, Urine Urobilinogen 0.2, Ur Leukocyte Esterase SMALL H , Ur Microscopic SEDIMENT EXAMINED, Urine RBC 1-3, Urine WBC 10-15 H, Urine Bacteria RARE H, Urine Hemoglobin SMALL H, Urine Glucose 100 H Assessment/Plan Assessment/Plan 56 y-o-w-m w/ hx HTN, DM, previous ESRD s/p cadaveric renal transplantation, PVD s/p right BKA, left TMA, & CAD s/p [place] w/ CABG x 2, and stress induced cardiomyopathy who presented w/ intravascular depletion and suspected sepsis. Recommendations: * Continue on telemetry, strict inputs/outputs, etc. * Follow-up cultures and ID recommendations. * Plastic surgery consultation for further evaluation of right BKA stump and left hand. * DVT prophylaxis.
[2016-11-27 23:40] VITALS: BP 120/80
--- NOTE | 2016-11-28 07:27 | PN- Housestaff ---
Subjective Follow-up For: Sepsis likely secondary to midline catheter Tele-Events Since Last Visit: no acute ON events Subjective: Patient seen and examined this morning. He was sitting in bed in no acute distress, denies any nausea, vomiting, diarrhea. Has been afebrile, white count normal. He is complaining of some abdominal discomfort in the right lower cord, and episode take pain which as per him is originating from his transplanted kidney. Catheter tip is going Enterobacter sensitive to meropenem. He is to be evaluated by Dr. Butler today for his left hand and right below-knee amputation stump. Review of Systems Constitutional: Reports: see HPI. Objective Last 24 Hrs of Vital Signs/I&O Vital Signs Date Time Temp Pulse Resp B/P B/P Pulse O2 O2 Flow FiO2 Mean Ox Delivery Rate 11/28 0753 97.6 57 14 130/70 97 Room Air 11/28 0000 Room Air 11/27 2340 97.3 50 12 120/80 95 Room Air 11/27 1645 98.0 56 16 110/70 97 Room Air Intake & Output 11/28 1600 11/28 0800 11/28 0000 Intake Total 650 400 Output Total Balance 650 400 Intake, Oral 650 400 Number 1 Bowel Movements Physical Exam General Appearance: Alert, Oriented X3, Cooperative, No Acute Distress Cardiovascular: Regular Rate, Normal S1, Normal S2, No Murmurs Lungs: Clear to Auscultation, Normal Air Movement Abdomen: Normal Bowel Sounds, No Tenderness, distended, firm Extremities: No Clubbing, No Cyanosis, bilateral lower extremities trace edema Current Medications: Current Medications Sig/Margaret Start time Last Medication Dose Route Stop Time Status Admin Acetaminophen 500 MG Q6P PRN 11/27 1100 AC 11/27 PO 1114 Acetaminophen 1,000 MG Q6P PRN 11/25 1830 AC N/A 1 UNIT IV Aspirin Buffered 325 MG DAILY 11/26 1000 AC 11/28 PO 0934 Clopidogrel Bisulfate 75 MG DAILY 11/26 1000 AC 11/28 PO 0935 Diclofenac Sodium 1 MAGALY Q6PRN PRN 11/26 1345 AC TOP Heparin Sodium 5,000 UNIT Q8 11/25 2200 AC 11/28 (Porcine) SC 0551 Insulin Aspart 10 UNITS 0800,1200,1700 11/26 1700 AC 11/28 SC 0838 Insulin Aspart 0 TIDAC/HS 11/26 1200 AC 11/27 SC 2145 Insulin Detemir 70 UNITS 8AM 11/27 0800 AC 11/28 SC 0838 Insulin Detemir 20 UNITS 11/26 AC 11/27 SC 2145 Meropenem 1 GM IQ8 11/26 0000 AC 11/28 IV 0836 Mycophenolate Mofetil 500 MG BID 11/26 2200 AC 11/28 PO 0935 Omeprazole 20 MG DAILY AC 11/26 0700 AC 11/28 PO 0551 Prednisone 5 MG DAILY 11/26 1113 AC 11/28 PO 0935 Sodium Chloride 1,000 ML Q13H 11/25 1700 DC 11/27 IV 0000 Tacrolimus 1 MG AT BEDTIME 11/27 2200 AC 11/27 PO 2147 Tacrolimus 1.5 MG DAILY 11/27 1000 AC 11/28 PO 0935 Vancomycin HCl 1,000 MG DAILY@1400 11/26 1400 DC 11/27 Sodium Chloride 250 ML IV 1359 Last 24 Hrs of Lab/Ashish Results Last 24 Hrs of Labs/Mics: Laboratory Tests 11/28/16 0644: Anion Gap 9, Estimated GFR 48 L, BUN/Creatinine Ratio 19.3 11/28/16 0628: CBC w Diff NO MAN DIFF REQ, RBC 4.29 L, MCV 85.0, MCH 27.5, RDW 16.8 H, MPV 7.6, Gran % 74.3, Lymphocytes % 16.1 L, Monocytes % 6.8, Eosinophils % 2.6, Basophils % 0.2, Absolute Granulocytes 5.2, Absolute Lymphocytes 1.1 L, Absolute Monocytes 0.5, Absolute Eosinophils 0.2, Absolute Basophils 0, PUBS MCHC 32.3 L Assessment/Plan Assessment: Patient is a 56-year-old male presented with history of fever, chills, nausea and vomiting, onto pain, fever of 101 and leukocytosis/18,000 Assessment - Sepsis likely 2/2 catheter infection Diabetes Hypertension Coronary artery disease s/p [place],CABG, cardiomyopathy Irritable bowel syndrome ESRD s/p cadaveric renal transplant 6 year prior to admission on CellCept, Prograf, prednisone Peripheral vascular disease 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 * Cont insulin, Diet -CC * CODE STATUS -DNR/DNI Problem List: 1. Transplanted kidney 2. Sepsis 3. DNR (do not resuscitate) 4. DNI (do not intubate) 5. Osteomyelitis Pain Ratin Pain Location: none Pain Goal: Remain pain free Pain Plan: mpp Tomorrow's Labs & Rationales: cbc bep
[2016-11-28 07:53] VITALS: BP 130/70
[2016-11-28 08:38] LABS: ABSOLUTE BASOPHIL COUNT 0 /CUMM (0.0-0.2); ABSOLUTE EOSINOPHIL COUNT 0.2 /CUMM (0.0-0.7); ABSOLUTE GRANULOCYTE CT 5.2 /CUMM (1.4-6.5); ABSOLUTE LYMPH COUNT 1.1 /CUMM (1.2-3.4); ABSOLUTE MONOCYTE COUNT 0.5 /CUMM (0.10-0.60); BASOPHIL % 0.2 % (0.0-2.0); EOSINOPHIL % 2.6 % (0-5); GRANULOCYTE % 74.3 % (42.2-75.2); HEMATOCRIT 36.5 % (42-52); MEAN CORPUSCULAR HGB 27.5 PG (27.0-31.0); MEAN CORPUSCULAR HGB CONC 32.3 G/DL (33.0-37.0); MEAN PLATELET VOLUME 7.6 FL (7.4-10.4); PLATELET COUNT 137 /CUMM (130-400); RBC DISTRIBUTION WIDTH 16.8 % (11.5-14.5); RED BLOOD CELL CT 4.29 /CUMM (4.70-6.10)
--- NOTE | 2016-11-28 10:24 | PN- Nephrology ---
Assessment/Plan Assessment: 1. Acute kidney injury. He came in with fever likely some degree of volume depletion. He has a history of end-stage renal disease and is status post a successful donor kidney transplant. His baseline serum creatinine is 1.4-1.8. His creatinine today is 1.5. In essence, it is resolved. The only thing of concern is report of tenderness over the right lower quadrant graft. He had a scan of his last admission which is unrevealing. 2. CK D stage III. As noted status post successful other transplant. His CellCept has been in the decreased ROM of thousand milligrams twice a day to 500 mg twice a day. He had seen his transplant carbide die maker on Monday. 3. Peripheral vascular disease Suggestion: 1. Will not change his immunosuppression 2. Will need to discuss with his transplant carbide die maker 3. Given the fact his serum creatinine is 1.5, I'm inclined not to pursue further investigation with regards the possibility of rejection Subjective Subjective: Patient feels and looks well. He does mention some pain over his graft in the right lower quadrant. Review of Systems Constitutional: Denies: diaphoresis, fever. Cardiovascular: Denies: chest pain, edema. Respiratory: Denies: cough, orthopnea. Skin: Denies: rash. Objective Vital Signs and I&Os Vital Signs Date Time Temp Pulse Resp B/P B/P Pulse O2 O2 Flow FiO2 Mean Ox Delivery Rate 11/28 0753 97.6 57 14 130/70 97 Room Air 11/28 0000 Room Air 11/27 2340 97.3 50 12 120/80 95 Room Air 11/27 1645 98.0 56 16 110/70 97 Room Air Intake & Output 11/28 1600 11/28 0400 11/27 1600 11/27 0400 11/26 1600 11/26 0400 Intake Total 475 395 6354 1400 2700 480 Output Total 600 750 200 Balance 600 275 7624 800 1950 280 Intake, IV 3011 518 9105 20 Intake, Oral 311 712 2214 800 1400 460 Number 1 1 Bowel Movements Output, Urine 600 750 200 Patient 230 lb Weight Weight Reported by Patient Measurement Method Physical Exam General Appearance: well developed/nourished, no apparent distress, alert, awake Head: atraumatic, normal appearance Ears, Nose, Throat: normal pharynx, normal ENT inspection, hearing grossly normal Neck: normal inspection, supple, full range of motion, JVD Respiratory: normal breath sounds, chest non-tender, lungs clear Cardiovascular: regular rate/rhythm Abdomen: normal bowel sounds, soft, non-tender Extremities: normal inspection, normal capillary refill, normal range of motion, no edema, status post right BKA and left TMA Neurologic/Psychiatric: no motor/sensory deficits, awake, alert, oriented x 3 Skin: intact, normal color Other Physical Findings: I could not really elicit tenderness over the graft site. He has a large obese protuberant abdomen. Current Medications: Current Medications Sig/Margaret Start time Last Medication Dose Route Stop Time Status Admin Acetaminophen 500 MG Q6P PRN 11/27 1100 AC 11/27 PO 1114 Acetaminophen 1,000 MG Q6P PRN 11/25 1830 AC N/A 1 UNIT IV Aspirin Buffered 325 MG DAILY 11/26 1000 AC 11/28 PO 0934 Clopidogrel Bisulfate 75 MG DAILY 11/26 1000 AC 11/28 PO 0935 Diclofenac Sodium 1 MAGALY Q6PRN PRN 11/26 1345 AC TOP Heparin Sodium 5,000 UNIT Q8 11/25 2200 AC 11/28 (Porcine) SC 0551 Insulin Aspart 10 UNITS 0800,1200,1700 11/26 1700 AC 11/28 SC 0838 Insulin Aspart 0 TIDAC/HS 11/26 1200 AC 11/27 SC 2145 Insulin Detemir 70 UNITS 8AM 11/27 0800 AC 11/28 SC 0838 Insulin Detemir 20 UNITS 2000 11/26 2000 AC 11/27 SC 2145 Meropenem 1 GM IQ8 11/26 0000 AC 11/28 IV 0836 Mycophenolate Mofetil 500 MG BID 11/26 2200 AC 11/28 PO 0935 Omeprazole 20 MG DAILY AC 11/26 0700 AC 11/28 PO 0551 Prednisone 5 MG DAILY 11/26 1113 AC 11/28 PO 0935 Sodium Chloride 1,000 ML Q13H 11/25 1700 DC 11/27 IV 0000 Tacrolimus 1 MG AT BEDTIME 11/27 2200 AC 11/27 PO 2147 Tacrolimus 1.5 MG DAILY 11/27 1000 AC 11/28 PO 0935 Vancomycin HCl 1,000 MG DAILY@1400 11/26 1400 DC 11/27 Sodium Chloride 250 ML IV 1359 Results Pertinent Lab Results: Laboratory Tests 11/28 11/28 0644 0628 Chemistry Sodium (137 - 145 mmol/L) 141 Potassium (3.5 - 5.1 mmol/L) 4.7 Chloride (98 - 107 mmol/L) 113 H Carbon Dioxide (22 - 30 mmol/L) 19 L Anion Gap (5 - 16) 9 BUN (9 - 20 mg/dL) 29 H Creatinine (0.7 - 1.2 mg/dL) 1.5 H Estimated GFR (>60 ml/min) 48 L BUN/Creatinine Ratio (7 - 25 %) 19.3 Hematology CBC w Diff NO MAN DIFF REQ WBC (4.8 - 10.8 /CUMM) 7.0 RBC (4.70 - 6.10 /CUMM) 4.29 L Hgb (14.0 - 18.0 G/DL) 11.8 L Hct (42 - 52 %) 36.5 L MCV (80.0 - 94.0 FL) 85.0 MCH (27.0 - 31.0 PG) 27.5 RDW (11.5 - 14.5 %) 16.8 H Plt Count (130 - 400 /CUMM) 137 MPV (7.4 - 10.4 FL) 7.6 Gran % (42.2 - 75.2 %) 74.3 Lymphocytes % (20.5 - 51.1 %) 16.1 L Monocytes % (1.7 - 9.3 %) 6.8 Eosinophils % (0 - 5 %) 2.6 Basophils % (0.0 - 2.0 %) 0.2 Absolute Granulocytes (1.4 - 6.5 /CUMM) 5.2 Absolute Lymphocytes (1.2 - 3.4 /CUMM) 1.1 L Absolute Monocytes (0.10 - 0.60 /CUMM) 0.5 Absolute Eosinophils (0.0 - 0.7 /CUMM) 0.2 Absolute Basophils (0.0 - 0.2 /CUMM) 0 PUBS MCHC (33.0 - 37.0 G/DL) 32.3 L 11/27 11/26 0632 0535 Chemistry Sodium (137 - 145 mmol/L) 141 Potassium (3.5 - 5.1 mmol/L) 4.5 Chloride (98 - 107 mmol/L) 114 H Carbon Dioxide (22 - 30 mmol/L) 19 L Anion Gap (5 - 16) 7 BUN (9 - 20 mg/dL) 31 H Creatinine (0.7 - 1.2 mg/dL) 1.5 H Estimated GFR (>60 ml/min) 48 L BUN/Creatinine Ratio (7 - 25 %) 20.7 Troponin I (<0.11 ng/ml) 0.35 *H Hematology CBC w Diff NO MAN DIFF REQ WBC (4.8 - 10.8 /CUMM) 7.5 RBC (4.70 - 6.10 /CUMM) 4.21 L Hgb (14.0 - 18.0 G/DL) 11.6 L Hct (42 - 52 %) 36.1 L MCV (80.0 - 94.0 FL) 85.8 MCH (27.0 - 31.0 PG) 27.5 RDW (11.5 - 14.5 %) 16.9 H Plt Count (130 - 400 /CUMM) 141 MPV (7.4 - 10.4 FL) 7.8 Gran % (42.2 - 75.2 %) 72.2 Lymphocytes % (20.5 - 51.1 %) 14.7 L Monocytes % (1.7 - 9.3 %) 10.6 H Eosinophils % (0 - 5 %) 2.3 Basophils % (0.0 - 2.0 %) 0.2 Absolute Granulocytes (1.4 - 6.5 /CUMM) 5.4 Absolute Lymphocytes (1.2 - 3.4 /CUMM) 1.1 L Absolute Monocytes (0.10 - 0.60 /CUMM) 0.8 H Absolute Eosinophils (0.0 - 0.7 /CUMM) 0.2 Absolute Basophils (0.0 - 0.2 /CUMM) 0 PUBS MCHC (33.0 - 37.0 G/DL) 32.1 L 11/26 11/26 0535 0525 Chemistry Sodium (137 - 145 mmol/L) 139 Potassium (3.5 - 5.1 mmol/L) 4.1 Chloride (98 - 107 mmol/L) 110 H Carbon Dioxide (22 - 30 mmol/L) 19 L Anion Gap (5 - 16) 10 BUN (9 - 20 mg/dL) 36 H Creatinine (0.7 - 1.2 mg/dL) 1.7 H Estimated GFR (>60 ml/min) 42 L BUN/Creatinine Ratio (7 - 25 %) 21.2 Hematology CBC w Diff NO MAN DIFF REQ WBC (4.8 - 10.8 /CUMM) 8.5 RBC (4.70 - 6.10 /CUMM) 4.61 L Hgb (14.0 - 18.0 G/DL) 12.5 L Hct (42 - 52 %) 39.2 L MCV (80.0 - 94.0 FL) 85.0 MCH (27.0 - 31.0 PG) 27.0 RDW (11.5 - 14.5 %) 17.0 H Plt Count (130 - 400 /CUMM) 129 L MPV (7.4 - 10.4 FL) 7.5 Gran % (42.2 - 75.2 %) 80.5 H Lymphocytes % (20.5 - 51.1 %) 7.9 L Monocytes % (1.7 - 9.3 %) 10.5 H Eosinophils % (0 - 5 %) 0.8 Basophils % (0.0 - 2.0 %) 0.3 Absolute Granulocytes (1.4 - 6.5 /CUMM) 6.8 H Absolute Lymphocytes (1.2 - 3.4 /CUMM) 0.7 L Absolute Monocytes (0.10 - 0.60 /CUMM) 0.9 H Absolute Eosinophils (0.0 - 0.7 /CUMM) 0.1 Absolute Basophils (0.0 - 0.2 /CUMM) 0 PUBS MCHC (33.0 - 37.0 G/DL) 31.8 L Urines Urinalysis LIGHT H Urine Color (YEL,AMB,STR) STRAW Urine Clarity (CLEAR) CLEAR Urine pH (5.0 - 8.0) 6.0 Ur Specific Ethel (1.001 - 1.035) <= 1.005 Urine Protein (NEG,<30 MG/DL) 30 H Urine Ketones (NEG) NEG Urine Nitrite (NEG) NEG Urine Bilirubin (NEG) NEG Urine Urobilinogen (0.1 - 1.0 EU/dl) 0.2 Ur Leukocyte Esterase (NEG) SMALL H Ur Microscopic SEDIMENT EXAMINED Urine RBC (0 - 5 /HPF) 1-3 Urine WBC (0 - 2 /HPF) 10-15 H Urine Bacteria (NEG/NONE) RARE H Urine Hemoglobin (NEG) SMALL H Urine Glucose (N MG/DL) 100 H 11/251 1520 1500 1215 Blood Gas pH (7.35 - 7.45 PH) 7.38 pCO2 (35 - 45 TORR) 28 L pO2 (80 - 100 TORR) 80 HCO3 (21 - 28 MEQ/L) 16 L ABG O2 Sat (Measured) (>96.0 %) 96.0 P-50 (Temp Corrected) NO Carboxyhemoglobin (1.5 - 5.0 %) 0.8 L O2 Concentration % RA Temperature (97.0 - 100.0 FARH) 98.8 O2 Delivery Method RA Chemistry Lactic Acid (0.7 - 2.1 mmol/L) 1.6 Ammonia (9 - 30 umol/L) < 9 L Troponin I (<0.11 ng/ml) 0.48 *H Miscellaneous Phlebotomy Draw Site RIGHT BRACHIAL 11/25 1215 Blood Gas Bicarbonate Actual (22 - 26 MEQ/L) 16 L Mixed VBG pH (7.31 - 7.41 PH) 7.26 L Mixed VBG pCO2 (41 - 51 TORR) 37 L Mixed VBG O2 Saturation (35 - 45 TORR) 30 L P-50 (Temp Corrected) N Carboxyhemoglobin (1.5 - 5.0 %) 1.4 L O2 Concentration % RA Temperature (97.0 - 100.0 FARH) 100.4 H O2 Delivery Method RA Chemistry Sodium (137 - 145 mmol/L) 135 L Potassium (3.5 - 5.1 mmol/L) 4.8 Chloride (98 - 107 mmol/L) 103 Carbon Dioxide (22 - 30 mmol/L) 15 L Anion Gap (5 - 16) 17 H BUN (9 - 20 mg/dL) 43 H Creatinine (0.7 - 1.2 mg/dL) 2.2 H Estimated GFR (>60 ml/min) 31 L BUN/Creatinine Ratio (7 - 25 %) 19.5 Glucose (65 - 99 mg/dL) 255 H Lactic Acid (0.7 - 2.1 mmol/L) 4.9 H Calcium (8.4 - 10.2 mg/dL) 8.8 Total Bilirubin (0.2 - 1.3 mg/dL) 0.8 AST (17 - 59 U/L) 103 H ALT (21 - 72 U/L) 105 H Alkaline Phosphatase (< 127 U/L) 69 Troponin I (<0.11 ng/ml) 0.42 *H Total Protein (6.3 - 8.2 g/dL) 6.5 Albumin (3.5 - 5.0 g/dL) 3.8 Globulin (1.9 - 4.2 gm/dL) 2.7 Albumin/Globulin Ratio (1.1 - 2.2 %) 1.4 Coagulation PT (9.4 - 12.5 SEC) 12.6 H INR (0.90 - 1.17) 1.20 H APTT (25 - 37 SEC) 31 Hematology CBC w Diff MAN DIFF ORDERED WBC (4.8 - 10.8 /CUMM) 18.0 H RBC (4.70 - 6.10 /CUMM) 5.08 Hgb (14.0 - 18.0 G/DL) 13.7 L Hct (42 - 52 %) 42.9 MCV (80.0 - 94.0 FL) 84.5 MCH (27.0 - 31.0 PG) 26.9 L RDW (11.5 - 14.5 %) 16.9 H Plt Count (130 - 400 /CUMM) 158 MPV (7.4 - 10.4 FL) 6.9 L Gran % (42.2 - 75.2 %) 97.2 H Lymphocytes % (20.5 - 51.1 %) 1.5 L Monocytes % (1.7 - 9.3 %) 1.2 L Eosinophils % (0 - 5 %) 0.1 Basophils % (0.0 - 2.0 %) 0 L Absolute Granulocytes (1.4 - 6.5 /CUMM) 17.5 H Segmented Neutrophils (42.2 - 75.2 %) 90 H Band Neutrophils (0.0 - 5.0 %) 8 H Absolute Lymphocytes (1.2 - 3.4 /CUMM) 0.3 L Lymphocytes (20.5 - 51.1 %) 2 L Absolute Monocytes (0.10 - 0.60 /CUMM) 0.2 Absolute Eosinophils (0.0 - 0.7 /CUMM) 0 Absolute Basophils (0.0 - 0.2 /CUMM) 0 Platelet Estimate (ADEQUATE) ADEQUATE Anisocytosis 1+ PUBS MCHC (33.0 - 37.0 G/DL) 31.9 L Miscellaneous Phlebotomy Draw Site L ARM Toxicology Acetone Level (NEGATIVE) NEGATIVE
--- NOTE | 2016-11-28 11:32 | PN- Infect Dx ---
Subjective Subjective: Afebrile. He feels well but does note intermittent right lower quadrant stabbing pain over the renal transplant site Objective Last 24 Hrs of Vital Signs/I&O Vital Signs Date Time Temp Pulse Resp B/P B/P Pulse O2 O2 Flow FiO2 Mean Ox Delivery Rate 11/28 0753 97.6 57 14 130/70 97 Room Air 11/28 0000 Room Air 11/27 2340 97.3 50 12 120/80 95 Room Air 11/27 1645 98.0 56 16 110/70 97 Room Air Intake & Output 11/28 1600 11/28 0800 11/28 0000 Intake Total 650 400 Output Total Balance 650 400 Intake, Oral 650 400 Number 1 Bowel Movements Physical Exam Other Physical Findings: He appears comfortable in no acute distress Lungs are clear Heart regular rhythm with no murmur Abdomen is obese, soft, tender on palpation over the right lower quadrant transplant site, with no guarding or rebound, positive bowel sounds Extremities left hand wound clean, with no inflammation; right BKA stump warm, with no erythema or tenderness and with no active drainage noted; several sutures are out; left TMA wound well-healed Results Last 24 Hours of Lab Results: Laboratory Tests 11/28 11/28 0644 0628 Chemistry Sodium (137 - 145 mmol/L) 141 Potassium (3.5 - 5.1 mmol/L) 4.7 Chloride (98 - 107 mmol/L) 113 H Carbon Dioxide (22 - 30 mmol/L) 19 L Anion Gap (5 - 16) 9 BUN (9 - 20 mg/dL) 29 H Creatinine (0.7 - 1.2 mg/dL) 1.5 H Estimated GFR (>60 ml/min) 48 L BUN/Creatinine Ratio (7 - 25 %) 19.3 Hematology CBC w Diff NO MAN DIFF REQ WBC (4.8 - 10.8 /CUMM) 7.0 RBC (4.70 - 6.10 /CUMM) 4.29 L Hgb (14.0 - 18.0 G/DL) 11.8 L Hct (42 - 52 %) 36.5 L MCV (80.0 - 94.0 FL) 85.0 MCH (27.0 - 31.0 PG) 27.5 RDW (11.5 - 14.5 %) 16.8 H Plt Count (130 - 400 /CUMM) 137 MPV (7.4 - 10.4 FL) 7.6 Gran % (42.2 - 75.2 %) 74.3 Lymphocytes % (20.5 - 51.1 %) 16.1 L Monocytes % (1.7 - 9.3 %) 6.8 Eosinophils % (0 - 5 %) 2.6 Basophils % (0.0 - 2.0 %) 0.2 Absolute Granulocytes (1.4 - 6.5 /CUMM) 5.2 Absolute Lymphocytes (1.2 - 3.4 /CUMM) 1.1 L Absolute Monocytes (0.10 - 0.60 /CUMM) 0.5 Absolute Eosinophils (0.0 - 0.7 /CUMM) 0.2 Absolute Basophils (0.0 - 0.2 /CUMM) 0 PUBS MCHC (33.0 - 37.0 G/DL) 32.3 L Last 24 Hours of Ashish Results: Blood cultures 2 November 25 remain negative Urine culture November 26 negative Midline catheter tip culture November 25 greater than 15 colonies of Enterobacter cloacae sensitive to Meropenem and Tetracycline Assessment/Plan Impression: Doing well on Vancomycin and Meropenem Day 3 of treatment for presumed sepsis, with temperatures and white blood cell count remaining normal and with renal function back to his baseline. The most likely source of his sepsis is the midline catheter, given his rapid improvement with its removal and with the catheter tip positive for more than 15 colonies of Enterobacter. Another possible source is the right BKA stump, with a small collection noted on the ultrasound, status post revision 2 weeks prior to admission, though would expect him to remain febrile or his white count to remain elevated if this were the source. Have discussed with IR and Plastics and drainage of this collection can be considered either at the bedside, if feasible, or by IR. His left hand wound looks clean and seems less likely to be the source of sepsis. The significance of the right lower quadrant pain and tenderness is unclear as he has had this intermittently in the past and his renal function has returned to baseline. With regard to treatment it may be prudent to treat him for presumed line sepsis , despite the negative blood cultures, with a 10-14 day course of antibiotics, which would require placement of a Pro-Line. Suggestion: 1. Await Plastic surgery evaluation of his right BKA stump and left hand 2. Would consider aspiration/drainage of the right BKA stump collection based on above 3. Will likely need to pursue placement of a Pro-Line 4. Discontinue Vancomycin 5. Increase Meropenem to 1 g IV every 8 hours
--- NOTE | 2016-11-28 12:46 | Patient Discharge Instructions ---
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 Please administer meropenem as advised to complete the course. Diet Recommended Diet: Heart Healthy Activity Activity Self Limited: Yes Acute Coronary Syndrome Inclusion Criteria At DC or during hospital stay patient has or had the following: ACS DIAGNOSIS No Discharge Core Measures Meds if any: Prescribed or Continued at Discharge Meds if any: NOT Prescribed or Continued at Discharge Congestive Heart Failure Inclusion Criteria At DC or during hospital stay patient has or had the following: CHF DIAGNOSIS No Discharge Core Measures Meds if any: Prescribed or Continued at Discharge Meds if any: NOT Prescribed or Continued at Discharge Cerebrovascular accident Inclusion Criteria At DC or during hospital stay patient has or had the following: CVA/TIA Diagnosis No Discharge Core Measures Meds if any: Prescribed or Continued at Discharge Meds if any: NOT Prescribed or Continued at Discharge Venous thromboembolism Inclusion Criteria VTE Diagnosis No VTE Type NONE VTE Confirmed by (Test) NONE Discharge Core Measures - Per Current guidelines, there needs to be overlap - treatment for the first 5 days of Warfarin therapy. - If discharged on Warfarin prior to 5 days of - overlap therapy, the patient will need to be - assessed for post discharge needs including - *Post discharge parental anticoagulation - *Warfarin and/or parental anticoagulation education - *Follow up date to check INR post discharge At least 5 days overlap therapy as Inpatient No Meds if any: Prescribed or Continued at Discharge Note: Overlap Therapy is Warfarin and Anticoagulant Meds if any: NOT Prescribed or Continued at Discharge
--- NOTE | 2016-11-28 13:18 | Cons- Plastic Surgery ---
General Information and HPI Consulting Request Date of Consult: 11/28/16 Requested By: DONNA HI MD Reason for Consult: Sepsis Source of Information: patient Exam Limitations: no limitations History of Present Illness: Patient presents to the hospital with report of sepsis. He had a history of a Wiegers nausea vomiting that he did not report. He presented to his taxi proprietor who found him to be ill-appearing and was referred to the emergency room where he was eventually admitted. Reportedly removing his PICC line cause defervesced since. Portmonday prior to admission he noticed his wound opening and again this went on reported. Today he feels well Allergies/Medications Allergies: Coded Allergies: nut - unspecified (Severe, SKIN ULCERATION, THROAT SWELLING 11/25/16) ULCERS IN THROAT cefepime (HIVES 11/25/16) darbepoetin sherley (From ARANESP (IN ALBUMIN)) (throat swells 11/09/16) linezolid (blurry vision 11/25/16) metformin (GI DISTRESS 11/25/16) ondansetron (From ZOFRAN ( HYDROCHLORIDE)) (irregular heartbeat 11/25/16) sulfamethoxazole (From BACTRIM) (KIDNEY ISSUES 11/25/16) trimethoprim (From BACTRIM) (KIDNEY ISSUES 11/25/16) grapefruit (DRUG INTERACTOINS 11/25/16) Home Med List: Aspirin (Ecotrin*) 325 MG TABLET.DR 1 TAB PO DAILY heart health (Reported) Cholecalciferol (Vitamin D3) (Vitamin D) 2,000 UNIT CAPSULE 1 CAP PO DAILY HEALTH SUPPLEMENT (Reported) Clopidogrel Bisulfate (Plavix) 75 MG TABLET 75 MG PO DAILY ANTI PLATELET . Insulin Aspart, Recombinant (Novolog Flexpen) 100 UNIT/ML INSULN.PEN 50 UNITS SC BID DIABETES (Reported) Insulin Glargine,Hum.rec.anlog (Lantus Solostar) 100 UNIT/ML (3 ML) INSULN.PEN 0 SC AD diabetes (Reported) 70 units in AM; 20 units at bedtime Mycophenolate Mofetil 500 MG TABLET 2 TAB PO BID IMMUNOSUPPRESSANT (Reported) Nitroglycerin (Minitran) 0.4 MG/HOUR PATCH.TD24 0.4 MG ACW DAILY CHEST PAIN ( Reported) Pantoprazole Sodium (Protonix) 20 MG TABLET.DR 1 TAB PO DAILY GERD (Reported) Prednisone 5 MG TABLET 1 TAB PO DAILY INFLAMMATION (Reported) Tacrolimus (Prograf) 0.5 MG CAPSULE 1 CAP PO QPM RENAL TRANSPLANT (Reported) Tacrolimus 1 MG CAPSULE 2 CAP PO BID ANTI-REJECTION (Reported) Past History Medical History Blood Transfusion Hx: Yes Neurological: NONE EENT: NONE Cardiovascular: CAD, cardiomyopathy, hypertension, myocardial infarction, peripheral vascular disease Respiratory: NONE Gastrointestinal: irritable bowel syndrome, DIVERTICULITIS Hepatic: NONE Renal: chronic kidney disease, renal transplant, OLD CLOTTED AVF L ARM Musculoskeletal: MRSA osteomyelitis of the left fifth finger fifth finger Psychiatric: NONE Endocrine: DIABETES TYPE II Blood Disorders: NONE Surgical History Pertinent Surgical History: CABG, cholecystectomy, right BKA renal transplant left TMA Family History Relations & Conditions If Any: FATHER Atrial fibrillation Relation not specified for: Hypertension in mother Psychosocial History Where Do You Live? Home Who Do You Live With? child Services at Home: Nursing Primary Language: Welsh Smoking Status: Former Smoker ETOH Use: denies use Illicit Drug Use: denies illicit drug use Functional Ability ADLs Independent: dressing, eating. Needs Assist: toileting, bathing. Ambulation: WHEELCHAIR IADLs Independent: finances, food prep, telephone, medication admin. Needs Assist: shopping, housework, transportation. Review of Systems Review of Systems: All other systems negative Exam & Diagnostic Data Vital Signs and I&O Vital Signs Date Time Temp Pulse Resp B/P B/P Pulse O2 O2 Flow FiO2 Mean Ox Delivery Rate 11/28 0800 Room Air 11/28 0753 97.6 57 14 130/70 97 Room Air 11/28 0000 Room Air 11/27 2340 97.3 50 12 120/80 95 Room Air 11/27 1645 98.0 56 16 110/70 97 Room Air Intake & Output 11/28 1600 11/28 0800 11/28 0000 11/27 1600 11/27 0800 11/27 0000 Intake Total 083 298 5308 1000 1400 Output Total 600 Balance 700 806 5441 1000 800 Intake, IV 450 600 600 Intake, Oral 823 174 3478 400 800 Number 1 1 Bowel Movements Output, Urine 600 Physical Exam: Seen wheelchair right BKA stump hanging dependently. Examination of the stump incision shows it to be dehisced uniformly across its left millimeters without grossly exposed underlying tissues. There is no surrounding cellulitis. Manual compression of the BKA side produces no drainage. The left hand is healing well. The palm incision that was done at [facility] and closed and debrided by me is improving nicely without cellulitis. The amp site over the small finger is healing well. Assessment/Plan Assessment/Plan Sepsis. I do not consider the right BKA stump to be of concern currently. It is normal to have postoperative fluid collections and is likely on worthy of aspiration. The left hand is healing well. We'll continue with daily soap and water followed by bacitracin a nonstick gauze pads or Xeroform done on a daily basis to the wound sites. Follow-up office next week encourage patient not to dangle the right BKA site Consult Acknowledgment - Thank you for your consult request.
--- NOTE | 2016-11-28 14:09 | PN- Att Addend ---
Attending MD Review Statement Attending Statement Attending MD Statement: examined this patient, discuss w/resident/PA/CLERICAL ADJUDICATOR, agreed w/resident/PA/CLERICAL ADJUDICATOR, reviewed EMR data (avail), discussed w/nursing, discussed w/ case mgmt Attending Assessment/Plan: Laboratory Tests 11/28/16 0644: Anion Gap 9, Estimated GFR 48 L, BUN/Creatinine Ratio 19.3 11/28/16 0628: CBC w Diff NO MAN DIFF REQ, RBC 4.29 L, MCV 85.0, MCH 27.5, RDW 16.8 H, MPV 7.6, Gran % 74.3, Lymphocytes % 16.1 L, Monocytes % 6.8, Eosinophils % 2.6, Basophils % 0.2, Absolute Granulocytes 5.2, Absolute Lymphocytes 1.1 L, Absolute Monocytes 0.5, Absolute Eosinophils 0.2, Absolute Basophils 0, PUBS MCHC 32.3 L Vital Signs Date Time Temp Pulse Resp B/P B/P Pulse O2 O2 Flow FiO2 Mean Ox Delivery Rate 11/28 0800 Room Air 11/28 0753 97.6 57 14 130/70 97 Room Air 11/28 0000 Room Air 11/27 2340 97.3 50 12 120/80 95 Room Air 11/27 1645 98.0 56 16 110/70 97 Room Air d/w pt and ID and Plastic surgery the care plan. Dced vancomycin and cont meropenem. will fu on plastic surgery recommendations.
[2016-11-28 16:40] VITALS: BP 124/60
--- NOTE | 2016-11-28 20:57 | PN- Cardiology ---
Subjective Subjective: * Patient is much improved without chest discomfort or shortness of breath. * sinus rhythm * creatinine 1.5 Objective Vital Signs and I&Os Vital Signs Date Time Temp Pulse Resp B/P B/P Pulse O2 O2 Flow FiO2 Mean Ox Delivery Rate 11/28 1640 98.2 62 20 124/60 94 Nasal Cannula 11/28 0800 Room Air 11/28 0753 97.6 57 14 130/70 97 Room Air 11/28 0000 Room Air 11/27 2340 97.3 50 12 120/80 95 Room Air Intake & Output 11/28 1600 11/28 0800 11/28 0000 11/27 1600 11/27 0800 11/27 0000 Intake Total 390 554 050 2513 1000 1400 Output Total 600 Balance 390 315 273 4426 1000 800 Intake, IV 30 450 600 600 Intake, Oral 360 358 605 6091 400 800 Number 1 1 Bowel Movements Output, Urine 600 Physical Exam: General: WD/ overweight male in NAD; alert and oriented x 3 HEENT: NC/AT, PERRL, EOMI Neck: no JVD, no carotid bruit Heart: RRR w/o murmur Lungs: clear bilaterally Abdomen: soft, obese, NT, +ve bowel sounds Ext: no edema, Right BKA Assessment/Plan Assessment/Plan * Patient is doing well on his current drug regimen. Continue aspirin and Plavix. Repeat LFT's and if his hepatic transaminases have normalized then begin a small dose of statin. No NTG unless patient complains of chest pain. Okay to discontinue telemetry. Continue telemetry? No
[2016-11-29 01:37] VITALS: BP 130/60
[2016-11-29 06:57] VITALS: BP 128/64
--- NOTE | 2016-11-29 07:59 | PN- Housestaff ---
Subjective Follow-up For: Sepsis likely 2/2 catheter infection Diabetes Hypertension Coronary artery disease s/p UT,CABG, cardiomyopathy Tele-Events Since Last Visit: 6 beat run of V. tach Subjective: Patient seen and examined this morning. He was lying in bed in no acute distress. Afebrile, WBC stable, will continue with meropenem, patient likely to get meropenem tomorrow Review of Systems Constitutional: Reports: see HPI. Objective Last 24 Hrs of Vital Signs/I&O Vital Signs Date Time Temp Pulse Resp B/P B/P Pulse O2 O2 Flow FiO2 Mean Ox Delivery Rate 11/29 0800 Room Air 11/29 0657 97.7 52 20 128/64 95 Room Air 11/29 0137 97.0 52 20 130/60 96 Room Air 11/28 1640 98.2 62 20 124/60 94 Nasal Cannula Intake & Output 11/29 1600 11/29 0800 11/29 0000 Intake Total 0 1110 Output Total 250 400 Balance -250 710 Intake, IV 30 Intake, Oral 0 1080 Output, Urine 250 400 Patient 104.326 kg Weight Physical Exam General Appearance: Alert, Oriented X3, Cooperative, No Acute Distress Current Medications: Current Medications Sig/Margaret Start time Last Medication Dose Route Stop Time Status Admin Acetaminophen 500 MG Q6P PRN 11/27 1100 AC 11/27 PO 1114 Acetaminophen 1,000 MG Q6P PRN 11/25 1830 AC N/A 1 UNIT IV Aspirin Buffered 325 MG DAILY 11/26 1000 AC 11/28 PO 0934 Clopidogrel Bisulfate 75 MG DAILY 11/26 1000 AC 11/28 PO 0935 Diclofenac Sodium 1 MAGALY Q6PRN PRN 11/26 1345 AC TOP Heparin Sodium 5,000 UNIT Q8 11/25 2200 AC 11/28 (Porcine) SC 2253 Insulin Aspart 10 UNITS 0800,1200,1700 11/26 1700 AC 11/29 SC 1253 Insulin Aspart 0 TIDAC/HS 11/26 1200 AC 11/28 SC 2254 Insulin Detemir 70 UNITS 8AM 11/27 0800 AC 11/29 SC 0845 Insulin Detemir 20 UNITS 11/26 2000 AC 11/28 SC 2253 Meropenem 1 GM IQ8 11/26 0000 AC 11/29 IV 0843 Mycophenolate Mofetil 500 MG BID 11/26 2200 AC 11/29 PO 1029 Omeprazole 20 MG DAILY AC 11/26 0700 AC 11/28 PO 0551 Prednisone 5 MG DAILY 11/26 1113 AC 11/29 PO 1029 Tacrolimus 1 MG AT BEDTIME 11/27 2200 AC 11/28 PO 2252 Tacrolimus 1.5 MG DAILY 11/27 1000 AC 11/29 PO 1029 Vancomycin HCl 1,000 MG DAILY@1400 11/29 1400 CAN Sodium Chloride 250 ML IV Last 24 Hrs of Lab/Ashish Results Last 24 Hrs of Labs/Mics: Laboratory Tests 11/29/16 0645: Anion Gap 9, Estimated GFR 48 L, BUN/Creatinine Ratio 19.3, Total Bilirubin 0.4 , Direct Bilirubin 0.3, AST 25, ALT 58, Alkaline Phosphatase 49, Total Protein 5.7 L, Albumin 3.1 L, CBC w Diff NO MAN DIFF REQ, RBC 4.43 L, MCV 84.9, MCH 27.0, RDW 16.7 H, MPV 7.4, Gran % 67.3, Lymphocytes % 21.3, Monocytes % 7.1, Eosinophils % 4.0, Basophils % 0.3, Absolute Granulocytes 3.8, Absolute Lymphocytes 1.2, Absolute Monocytes 0.4, Absolute Eosinophils 0.2, Absolute Basophils 0, PUBS MCHC 31.8 L Assessment/Plan Assessment: Patient is a 56-year-old male presented with history of fever, chills, nausea and vomiting, onto pain, fever of 101 and leukocytosis/18,000 Assessment - Sepsis likely 2/2 catheter infection Diabetes Hypertension Coronary artery disease s/p UT,CABG, cardiomyopathy Irritable bowel syndrome ESRD s/p cadaveric renal transplant 6 year prior to admission on CellCept, Prograf, prednisone Peripheral vascular disease s/p right BKA and 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 Butler, no need of drainage at this point recommended * Dose of CellCept from 1000mgs to 500 mgs twice a day per day as per nephro recs. * Cont insulin, Diet -CC * CODE STATUS -DNR/DNI Problem List: 1. Diabetes 2. Osteomyelitis 3. Transplanted kidney Pain Ratin Pain Location: none Pain Goal: Remain pain free Pain Plan: mpp Tomorrow's Labs & Rationales: pt ptt
[2016-11-29 08:04] LABS: ABSOLUTE BASOPHIL COUNT 0 /CUMM (0.0-0.2); ABSOLUTE EOSINOPHIL COUNT 0.2 /CUMM (0.0-0.7); ABSOLUTE GRANULOCYTE CT 3.8 /CUMM (1.4-6.5); ABSOLUTE LYMPH COUNT 1.2 /CUMM (1.2-3.4); ABSOLUTE MONOCYTE COUNT 0.4 /CUMM (0.10-0.60); BASOPHIL % 0.3 % (0.0-2.0); GRANULOCYTE % 67.3 % (42.2-75.2); HEMATOCRIT 37.6 % (42-52); MEAN CORPUSCULAR HGB CONC 31.8 G/DL (33.0-37.0); MEAN CORPUSCULAR VOLUME 84.9 FL (80.0-94.0); MEAN PLATELET VOLUME 7.4 FL (7.4-10.4); PLATELET COUNT 148 /CUMM (130-400); RBC DISTRIBUTION WIDTH 16.7 % (11.5-14.5); RED BLOOD CELL CT 4.43 /CUMM (4.70-6.10); WHITE BLOOD CELL COUNT 5.7 /CUMM (4.8-10.8)
[2016-11-29 14:25] VITALS: BP 148/62
--- NOTE | 2016-11-29 14:56 | PN- Att Addend ---
Attending MD Review Statement Attending Statement Attending MD Statement: examined this patient, discuss w/resident/PA/AUTOMATIC DIE CUTTING MACHINE OPERATOR, agreed w/resident/PA/AUTOMATIC DIE CUTTING MACHINE OPERATOR, reviewed EMR data (avail), discussed w/nursing, discussed w/ case mgmt Attending Assessment/Plan: Laboratory Tests 11/29/16 0645: Anion Gap 9, Estimated GFR 48 L, BUN/Creatinine Ratio 19.3, Total Bilirubin 0.4 , Direct Bilirubin 0.3, AST 25, ALT 58, Alkaline Phosphatase 49, Total Protein 5.7 L, Albumin 3.1 L, CBC w Diff NO MAN DIFF REQ, RBC 4.43 L, MCV 84.9, MCH 27.0, RDW 16.7 H, MPV 7.4, Gran % 67.3, Lymphocytes % 21.3, Monocytes % 7.1, Eosinophils % 4.0, Basophils % 0.3, Absolute Granulocytes 3.8, Absolute Lymphocytes 1.2, Absolute Monocytes 0.4, Absolute Eosinophils 0.2, Absolute Basophils 0, PUBS MCHC 31.8 L Vital Signs Date Time Temp Pulse Resp B/P B/P Pulse O2 O2 Flow FiO2 Mean Ox Delivery Rate 11/29 1425 98.3 58 18 148/62 94 Room Air 11/29 0800 Room Air 11/29 0657 97.7 52 20 128/64 95 Room Air 11/29 0137 97.0 52 20 130/60 96 Room Air 11/28 1640 98.2 62 20 124/60 94 Nasal Cannula Cont on meropenem , planned for proline on . d/w ID the care plan. d/w pt the care plan. d/w nephrology about immunosuppressants. cont on current dosage for now.
--- NOTE | 2016-11-29 15:10 | PN- Nephrology ---
Assessment/Plan Assessment: 1. Acute kidney injury. He came in with fever likely some degree of volume depletion. He has a history of end-stage renal disease and is status post a successful donor kidney transplant. His baseline serum creatinine is 1.4-1.8. His creatinine today is 1.5. No pain in the Graft today 2. CK D stage III. As noted status post successful other transplant. His CellCept has been in the decreased ROM of thousand milligrams twice a day to 500 mg twice a day. He had seen his transplant dental technician metal on Monday. His transplant Gallery Or Museum Attendant is Janak Boucher, 3. Peripheral vascular disease Suggestion: 1. Will not change his immunosuppression 2. ATBs per Dr Muhammad Subjective Subjective: Looks and feels well . No c/o offered. No pain in the graft. Objective Vital Signs and I&Os Vital Signs Date Time Temp Pulse Resp B/P B/P Pulse O2 O2 Flow FiO2 Mean Ox Delivery Rate 11/29 1425 98.3 58 18 148/62 94 Room Air 11/29 0800 Room Air 11/29 0657 97.7 52 20 128/64 95 Room Air 11/29 0137 97.0 52 20 130/60 96 Room Air 11/28 1640 98.2 62 20 124/60 94 Nasal Cannula Intake & Output 11/29 1600 11/29 0400 11/28 1600 11/28 0400 11/27 1600 11/27 0400 Intake Total 620 1110 3024 669 4073 1400 Output Total 250 400 600 Balance 506 283 9556 400 2650 800 Intake, IV 20 30 30 1050 600 Intake, Oral 600 1080 1976 614 6161 800 Number 1 1 Bowel Movements Output, Urine 250 400 600 Patient 230 lb Weight Physical Exam: General Appearance: well developed/nourished, no apparent distress, alert, awake Head: atraumatic, normal appearance Ears, Nose, Throat: normal pharynx, normal ENT inspection, hearing grossly normal Neck: normal inspection, supple, full range of motion, JVD Respiratory: normal breath sounds, chest non-tender, lungs clear Cardiovascular: regular rate/rhythm Abdomen: normal bowel sounds, soft, non-tender Extremities: normal inspection, normal capillary refill, normal range of motion, no edema, status post right BKA and left TMA, left hand bandaged Neurologic/Psychiatric: no motor/sensory deficits, awake, alert, oriented x 3 Skin: intact, normal color Current Medications: Current Medications Sig/Margaret Start time Last Medication Dose Route Stop Time Status Admin Acetaminophen 500 MG Q6P PRN 11/27 1100 AC 11/27 PO 1114 Acetaminophen 1,000 MG Q6P PRN 11/25 1830 AC N/A 1 UNIT IV Aspirin Buffered 325 MG DAILY 11/26 1000 AC 11/28 PO 0934 Clopidogrel Bisulfate 75 MG DAILY 11/26 1000 AC 11/28 PO 0935 Diclofenac Sodium 1 MAGALY Q6PRN PRN 11/26 1345 AC TOP Heparin Sodium 5,000 UNIT Q8 11/25 2200 AC 11/28 (Porcine) SC 2253 Insulin Aspart 10 UNITS 0800,1200,1700 11/26 1700 AC 11/29 SC 1253 Insulin Aspart 0 TIDAC/HS 11/26 1200 AC 11/28 SC 2254 Insulin Detemir 70 UNITS 8AM 11/27 0800 AC 11/29 SC 0845 Insulin Detemir 20 UNITS 2000 11/26 2000 AC 11/28 SC 2253 Meropenem 1 GM IQ8 11/26 0000 AC 11/29 IV 0843 Mycophenolate Mofetil 500 MG BID 11/26 2200 AC 11/29 PO 1029 Omeprazole 20 MG DAILY AC 11/26 0700 AC 11/28 PO 0551 Prednisone 5 MG DAILY 11/26 1113 AC 11/29 PO 1029 Tacrolimus 1 MG AT BEDTIME 11/27 2200 AC 11/28 PO 2252 Tacrolimus 1.5 MG DAILY 11/27 1000 AC 11/29 PO 1029 Vancomycin HCl 1,000 MG DAILY@1400 11/29 1400 CAN Sodium Chloride 250 ML IV Results Pertinent Lab Results: Laboratory Tests 11/29 11/28 0645 0644 Chemistry Sodium (137 - 145 mmol/L) 140 141 Potassium (3.5 - 5.1 mmol/L) 4.8 4.7 Chloride (98 - 107 mmol/L) 108 H 113 H Carbon Dioxide (22 - 30 mmol/L) 22 19 L Anion Gap (5 - 16) 9 9 BUN (9 - 20 mg/dL) 29 H 29 H Creatinine (0.7 - 1.2 mg/dL) 1.5 H 1.5 H Estimated GFR (>60 ml/min) 48 L 48 L BUN/Creatinine Ratio (7 - 25 %) 19.3 19.3 Total Bilirubin (0.2 - 1.3 mg/dL) 0.4 Direct Bilirubin (< 0.4 mg/dL) 0.3 AST (17 - 59 U/L) 25 ALT (21 - 72 U/L) 58 Alkaline Phosphatase (< 127 U/L) 49 Total Protein (6.3 - 8.2 g/dL) 5.7 L Albumin (3.5 - 5.0 g/dL) 3.1 L Hematology CBC w Diff NO MAN DIFF REQ WBC (4.8 - 10.8 /CUMM) 5.7 RBC (4.70 - 6.10 /CUMM) 4.43 L Hgb (14.0 - 18.0 G/DL) 11.9 L Hct (42 - 52 %) 37.6 L MCV (80.0 - 94.0 FL) 84.9 MCH (27.0 - 31.0 PG) 27.0 RDW (11.5 - 14.5 %) 16.7 H Plt Count (130 - 400 /CUMM) 148 MPV (7.4 - 10.4 FL) 7.4 Gran % (42.2 - 75.2 %) 67.3 Lymphocytes % (20.5 - 51.1 %) 21.3 Monocytes % (1.7 - 9.3 %) 7.1 Eosinophils % (0 - 5 %) 4.0 Basophils % (0.0 - 2.0 %) 0.3 Absolute Granulocytes (1.4 - 6.5 /CUMM) 3.8 Absolute Lymphocytes (1.2 - 3.4 /CUMM) 1.2 Absolute Monocytes (0.10 - 0.60 /CUMM) 0.4 Absolute Eosinophils (0.0 - 0.7 /CUMM) 0.2 Absolute Basophils (0.0 - 0.2 /CUMM) 0 PUBS MCHC (33.0 - 37.0 G/DL) 31.8 L 11/28 11/27 0628 0632 Chemistry Sodium (137 - 145 mmol/L) 141 Potassium (3.5 - 5.1 mmol/L) 4.5 Chloride (98 - 107 mmol/L) 114 H Carbon Dioxide (22 - 30 mmol/L) 19 L Anion Gap (5 - 16) 7 BUN (9 - 20 mg/dL) 31 H Creatinine (0.7 - 1.2 mg/dL) 1.5 H Estimated GFR (>60 ml/min) 48 L BUN/Creatinine Ratio (7 - 25 %) 20.7 Hematology CBC w Diff NO MAN DIFF REQ NO MAN DIFF REQ WBC (4.8 - 10.8 /CUMM) 7.0 7.5 RBC (4.70 - 6.10 /CUMM) 4.29 L 4.21 L Hgb (14.0 - 18.0 G/DL) 11.8 L 11.6 L Hct (42 - 52 %) 36.5 L 36.1 L MCV (80.0 - 94.0 FL) 85.0 85.8 MCH (27.0 - 31.0 PG) 27.5 27.5 RDW (11.5 - 14.5 %) 16.8 H 16.9 H Plt Count (130 - 400 /CUMM) 137 141 MPV (7.4 - 10.4 FL) 7.6 7.8 Gran % (42.2 - 75.2 %) 74.3 72.2 Lymphocytes % (20.5 - 51.1 %) 16.1 L 14.7 L Monocytes % (1.7 - 9.3 %) 6.8 10.6 H Eosinophils % (0 - 5 %) 2.6 2.3 Basophils % (0.0 - 2.0 %) 0.2 0.2 Absolute Granulocytes (1.4 - 6.5 /CUMM) 5.2 5.4 Absolute Lymphocytes (1.2 - 3.4 /CUMM) 1.1 L 1.1 L Absolute Monocytes (0.10 - 0.60 /CUMM) 0.5 0.8 H Absolute Eosinophils (0.0 - 0.7 /CUMM) 0.2 0.2 Absolute Basophils (0.0 - 0.2 /CUMM) 0 0 PUBS MCHC (33.0 - 37.0 G/DL) 32.3 L 32.1 L
[2016-11-29 21:54] VITALS: BP 100/60
[2016-11-30 06:49] VITALS: BP 150/80
[2016-11-30 08:20] LABS: PT 11.1 SEC (9.4-12.5); PTT 33 SEC (25-37)
--- NOTE | 2016-11-30 08:26 | PN- Housestaff ---
Subjective Follow-up For: Sepsis likely 2/2 catheter infection Diabetes Hypertension Coronary artery disease s/p MS,CABG, cardiomyopathy Subjective: Seen and examined. lying in bed in good spirits, he is npo for proline placement today, remains afebrile, white count stable. offers no complaints Review of Systems Constitutional: Reports: see HPI. Objective Last 24 Hrs of Vital Signs/I&O Vital Signs Date Time Temp Pulse Resp B/P B/P Pulse O2 O2 Flow FiO2 Mean Ox Delivery Rate 11/30 0649 98.3 51 20 150/80 98 Room Air 11/29 2154 97.5 66 20 100/60 96 Room Air 11/29 1425 98.3 58 18 148/62 94 Room Air Intake & Output 11/30 1600 11/30 0800 11/30 0000 Intake Total 860 Output Total Balance 860 Intake, IV 20 Intake, Oral 840 Physical Exam General Appearance: Alert, Oriented X3, Cooperative, No Acute Distress, rest of exam unchanged from yesterday Assessment/Plan Assessment: Patient is a 56-year-old male presented with history of fever, chills, nausea and vomiting, onto pain, fever of 101 and leukocytosis/18,000 Assessment - Sepsis likely 2/2 catheter infection Diabetes Hypertension Coronary artery disease s/p MS,CABG, cardiomyopathy Irritable bowel syndrome ESRD s/p cadaveric renal transplant 6 year prior to admission on CellCept, Prograf, prednisone Peripheral vascular disease s/p right BKA and left 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 * Continue insulin * left hand and right BKA stump valuated by Dr. Butler, no need of drainage at this point recommended * Dose of CellCept from 1000mgs to 500 mgs twice a day per day as per nephro recs. * Cont insulin, Diet -CC * CODE STATUS -DNR/DNI Problem List: 1. Transplanted kidney 2. Diabetes 3. Osteomyelitis Pain Ratin Pain Location: none Pain Goal: Remain pain free Pain Plan: mpp Tomorrow's Labs & Rationales: none
[2016-11-30] MEDS ORDERED: MEROPENEM1 G1 IV ×2 (11:15→15:31)
[2016-11-30] MEDS ORDERED: ATORVASTATIN CA10 M1 PO ×2 (11:30→15:31)
--- NOTE | 2016-11-30 11:52 | PN- Infect Dx ---
Subjective Subjective: Afebrile. He does note some discomfort in the left hand and right BKA stump but denies any further abdominal pain. Objective Last 24 Hrs of Vital Signs/I&O Vital Signs Date Time Temp Pulse Resp B/P B/P Pulse O2 O2 Flow FiO2 Mean Ox Delivery Rate 11/30 0649 98.3 51 20 150/80 98 Room Air 11/29 2154 97.5 66 20 100/60 96 Room Air 11/29 1425 98.3 58 18 148/62 94 Room Air Intake & Output 11/30 1600 11/30 0800 11/30 0000 Intake Total 860 Output Total Balance 860 Intake, IV 20 Intake, Oral 840 Physical Exam Other Physical Findings: He appears comfortable in no acute distress Lungs are clear Heart regular rhythm with no murmur Abdomen is obese, soft, nontender with positive bowel sounds Extremities left hand and right BKA dressings intact Results Last 24 Hours of Lab Results: Laboratory Tests 11/30 0637 Chemistry Total Bilirubin (0.2 - 1.3 mg/dL) 0.3 Direct Bilirubin (< 0.4 mg/dL) 0.1 AST (17 - 59 U/L) 38 ALT (21 - 72 U/L) 65 Alkaline Phosphatase (< 127 U/L) 52 Total Protein (6.3 - 8.2 g/dL) 5.8 L Albumin (3.5 - 5.0 g/dL) 3.4 L Coagulation PT (9.4 - 12.5 SEC) 11.1 INR (0.90 - 1.17) 1.06 APTT (25 - 37 SEC) 33 Last 24 Hours of Ashish Results: Blood cultures November 25 reported positive for gram-negative rods Assessment/Plan Impression: Doing well with temperatures and white blood cell count remaining normal on Meropenem Day 5 of treatment for Enterobacter sepsis, presumably secondary to the midline catheter, which was removed on admission, with the catheter tip culture also positive.. The significance of the small collection at the BKA stump seen on ultrasound is unclear and not felt by Plastic surgery to warrant aspiration. Suggestion: 1. Await placement of a Pro-Line later today 2. Continue Meropenem to complete a 14 day course of treatment (until December 09)
--- NOTE | 2016-11-30 13:53 | PN- Att Addend ---
Attending MD Review Statement Attending Statement Attending MD Statement: examined this patient, discuss w/resident/PA/PROCESS CONTROL OPERATOR, agreed w/resident/PA/PROCESS CONTROL OPERATOR, reviewed EMR data (avail), discussed w/nursing, discussed w/ case mgmt Attending Assessment/Plan: Laboratory Tests 11/30/16 0637: Total Bilirubin 0.3, Direct Bilirubin 0.1, AST 38, ALT 65, Alkaline Phosphatase 52, Total Protein 5.8 L, Albumin 3.4 L, PT 11.1, INR 1.06, APTT 33 Vital Signs Date Time Temp Pulse Resp B/P B/P Pulse O2 O2 Flow FiO2 Mean Ox Delivery Rate 11/30 0649 98.3 51 20 150/80 98 Room Air 11/29 2154 97.5 66 20 100/60 96 Room Air 11/29 1425 98.3 58 18 148/62 94 Room Air Pt going for line placement down to IR today and will be dced today evening on 9 more days of meropenem. Case management working on arranging home abx for him. d /w pt the care plan.
--- NOTE | 2016-11-30 14:39 | INTERVENTIONAL RADIOLOGY RPT ---
RIGHT-SIDED TUNNELED CENTRAL VENOUS CATHETER INTERVENTIONAL RADIOLOGIST: Orlando Brice M.D. CLINICAL INDICATION: Intravenous access for long-term antibiotics.. ACCESS: RIGHT internal jugular vein. GUIDANCE: Ultrasound and Fluoroscopy (12 seconds) CONSCIOUS SEDATION: The patient received intravenous conscious sedation under my direct supervision. A registered nurse monitored the patient and the patient's vital signs throughout the procedure. The total sedation time was 15 minutes. A total of 1 mg of Versed and 50 mcg fentanyl was given for good effect. COMPLICATIONS: none CONTRAST: none INFORMED CONSENT: Informed consent was obtained prior to the procedure. During this process, the procedure and potential alternatives were explained, along with the intended outcome and benefits. The risks of the procedure including the possibility of an unsuccessful procedure, as well as the risk of not doing the procedure were discussed. Opportunity was given to ask questions regarding the procedure and appeared competent to make decisions. A signed consent form documenting this discussion was placed in the medical record. A time out procedure was performed. DESCRIPTION: The RIGHT neck and chest wall were prepped and draped. Ultrasound-guided vascular access: Ultrasound was used to identify the RIGHT internal jugular vein . The the RIGHT internal jugular vein was confirmed to be patent. Real time imaging confirmed needle access into the RIGHT internal jugular vein. An image was saved for permanent recording in PACS. Under fluoroscopic guidance, a 0.018 guidewire was advanced into the right atrium. Fluoroscopic landmarks were utilized to calculate a tunnel length. A tunnel was then created along the right chest wall to the jugular puncture site. A 5 Syrian 21 cm tunneled catheter was then pulled through the tunnel. A peel-away sheath was then placed into the right jugular vein. The tunneled catheter was passed through the peel-away sheath and positioned with its tip at the right atrial junction. The peel-away sheath was removed and the wings of the catheter were secured to the skin using 2-0 suture. The jugular entry site was closed with Dermabond. The lumens were flushed with normal saline. A sterile dressing was applied. IMPRESSION: Successful placement of a tunneled RIGHT sided CVC without complication. The catheter tip is located at the right atrial junction and the line is ready for use.
[2016-11-30 14:47] VITALS: BP 140/76
--- NOTE | 2016-11-30 16:13 | Discharge Summary ---
Visit Information Visit Dates Admission Date: 11/25/16 Discharge Date: 11/30/16 Hospital Course Course Attending Physician: SUSSY COBURN,DONNA Barboza Primary Care Physician: ANJANA COBURN,JAZZY Vásquez Hospital Course: Patient is a 56-year-old woman with past medical history significant for insulin -dependent diabetes melltisu, ESRD previously on hemodialysis s/p renal tranplant now on Tacrolimus/Mycophenolate/Prednisone, Takosubo's Cardiomyopathy, [place], and right BKA with recurrent infection, and left fifth digit amputation presented to the ED for evaluation of fever with chills. Patient was recently admitted to [facility] for left hand osteomyelitis with sepsis with elevated troponins with [facility] on 11/15/16, was discharged on ciprofloxacin. Patient was supposed to discontinue IV daptomycin but he continued as per his outpatient ID recommendations. Patient was doing well until 3 days prior to admission, thats when he started feeling nausea vomiting with rigors and chills. He was seen in Dr. Dailey's office for a follow-up appointment,and was found to be very diaphoretic and shaky and was sent to the ED for further evaluation. He also reported that his right BKA stump popped/was draining, but denies any current swelling, pain, redness. Does not report any pain or drainage from his left hand. Upon presentation: febrile to 101.2, tachycardic to 103, blood pressure was stable upon admission, satting well. Pertinent labs on admission leukocytosis 18 with granulocytosis, H&H 13.7 and 42.9, crit 2015, sodium 135, creatinine 2.2 and the ON 43, lactic acid 4.9, Chest X-ray showed hyperinflated lungs, lean opacities from atelectasis and/or mild infiltrates in the lung bases unchanged from 11/11 left hand xray: Status post amputation of the fifth digit. There is soft tissue swelling surrounding the head of the fifth metacarpal without underlying bony erosions identified. EKG done in the ED showed normal sinus rhythm. Patient was admitted to telemtry floor, initially started on Vancomycin and meropenem, source of infection was found to be midline catheter which grew enterobacter sensitive to meropenem, BC grew the same, ID was on board patient was continued on meropenem to complete a 14 day course. His white count improved over the course of his admission, he remained afebrile. While in house his Cellcept dose was decreased to 500mg BID and he was continued on home dose of tacrolimus and prednisone. was consulted for BKA stump collection and left hand, no drainage of fluid collection in BKA stump was recommended. he was advised to follow up with his PCP, sill worker, ID specialist upon discharge. Allergies: Coded Allergies: nut - unspecified (Severe, SKIN ULCERATION, THROAT SWELLING 11/25/16) ULCERS IN THROAT cefepime (HIVES 11/25/16) darbepoetin sherley (From ARANESP (IN ALBUMIN)) (throat swells 11/09/16) linezolid (blurry vision 11/25/16) metformin (GI DISTRESS 11/25/16) ondansetron (From ZOFRAN ( HYDROCHLORIDE)) (irregular heartbeat 11/25/16) sulfamethoxazole (From BACTRIM) (KIDNEY ISSUES 11/25/16) trimethoprim (From BACTRIM) (KIDNEY ISSUES 11/25/16) grapefruit (DRUG INTERACTOINS 11/25/16) Disposition Summary Disposition Principal Diagnosis: Sepsis likely 2/2 catheter infection Additional Diagnosis: Diabetes Hypertension Coronary artery disease s/p TN,CABG, cardiomyopathy Irritable bowel syndrome ESRD s/p cadaveric renal transplant 6 year prior to admission on CellCept, Prograf, prednisone Peripheral vascular disease s/p right BKA and left 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 Medications at Discharge Discharge Medications: Continue taking these medications: Tacrolimus (Tacrolimus) 1 MG CAPSULE 2 Capsule ORAL TWICE DAILY Qty = 60 Comments: Last Taken: 11/29/16 Time: 2100 Mycophenolate Mofetil (Mycophenolate Mofetil) 500 MG TABLET 2 Tablet ORAL TWICE DAILY Qty = 120 Comments: Last Taken: 11/30/16 Time: 1500 Prednisone (Prednisone) 5 MG TABLET 1 Tablet ORAL DAILY Comments: Last Taken: 11/09/27 Time: 1500 Pantoprazole Sodium (Protonix) 20 MG TABLET. 1 Tablet ORAL DAILY Comments: NOT GIVEN IN HOSPITAL. PRILOSEC GIVEN 11/30/16 AT 1500 Cholecalciferol (Vitamin D3) (Vitamin D) 2,000 UNIT CAPSULE 1 Capsule ORAL DAILY Comments: Last Taken: NOT GIVEN IN THE HOSPITAL Time: Aspirin (Ecotrin*) 325 MG TABLET. 1 Tablet ORAL DAILY Comments: Last Taken: 11/28/16 Time: 9:30 AM Clopidogrel Bisulfate (Plavix) 75 MG TABLET 75 Milligram ORAL DAILY Qty = 30 Instructions: . Comments: Last Taken: 11/28/16 Time: 9:30 AM Insulin Glargine,Hum.rec.anlog (Lantus Solostar) 100 UNIT/ML (3 ML) INSULN.PEN 0 Inject into fatty tissue As Directed Qty = 90 Instructions: 70 units in AM; 20 units at bedtime Insulin Aspart, Recombinant (Novolog Flexpen) 100 UNIT/ML INSULN.PEN 50 Units Inject into fatty tissue TWICE DAILY Qty = 60 Nitroglycerin (Minitran) 0.4 MG/HOUR PATCH.TD24 0.4 Milligram APPLY TO CHEST WALL DAILY Qty = 30 Tacrolimus (Prograf) 0.5 MG CAPSULE 1 Capsule ORAL Every night Qty = 120 Comments: Last Taken:11/30/16 Time:1500 Start taking the following new medications: Atorvastatin Calcium (Atorvastatin Calcium) 10 MG TABLET 1 Tablet ORAL DAILY Qty = 30 No Refills Comments: Last Taken:11/30/16 Time:1700 Meropenem (Meropenem) 1 GRAM VIAL 1 VIAL INTRAVEN IV EVERY 8 HOURS Qty = 27 No Refills Comments: Last Taken:11/30/16 Time:1700 Copies To: SUSSY COBURN,DONNA Barboza; ANJANA COBURN,JAZZY Vásquez; RIP COBURN,JOHN Jones Attending MD Review Statement Documenting Attending: DONNA HI MD Other Findings: Agree with the above discharge plan. Please see my separate attending note for more details.
== END 2016-11-30 19:15 | disposition home health service (06) | DRG 314 ==
LOC: ERH 11:40 → ERHI 13:34 → 1NO 13:34 → CANRESERV 14:03 → ENRESERV 14:03 → EDBEDREQ 14:20 → ENRESERV 14:23 → ENTRNSPT 15:54 → 1NO 16:31 → CMPTRNSPT 16:36 → 1NO 11-26 07:10 → ENPENDDIS 11-30 17:21 → 1NO 11-30 19:15
PROVIDERS: Emergency Medicine; Internal Medicine Adolescent Medicine; Student in an Organized Health Care Education/Training Program; ADMIT Hospitalist
PROC: 05HM33Z Insertion of Infusion Device into Right Internal Jugular Vein, Percutaneous Approach (ICD-10-PCS; principal; 2016-11-30)
DX: T82.7XXA Infection and inflammatory reaction due to other cardiac and vascular devices, implants and grafts, initial encounter (principal); A41.9 Sepsis, unspecified organism; N18.6 End stage renal disease; I12.0 Hypertensive chronic kidney disease with stage 5 chronic kidney disease or end stage renal disease; N17.9 Acute kidney failure, unspecified; E11.22 Type 2 diabetes mellitus with diabetic chronic kidney disease; I24.8 Other forms of acute ischemic heart disease; Z94.0 Kidney transplant status; T81.4XXA Infection following a procedure, initial encounter; I51.81 Takotsubo syndrome; M86.9 Osteomyelitis, unspecified; Z79.4 Long term (current) use of insulin; Z99.2 Dependence on renal dialysis; Y84.8 Other medical procedures as the cause of abnormal reaction of the patient, or of later complication, without mention of misadventure at the time of the procedure; I25.10 Atherosclerotic heart disease of native coronary artery without angina pectoris; Z95.1 Presence of aortocoronary bypass graft; I25.2 Old myocardial infarction; Z66 Do not resuscitate; I73.9 Peripheral vascular disease, unspecified; Z89.511 Acquired absence of right leg below knee; Z89.022 Acquired absence of left finger(s); I44.0 Atrioventricular block, first degree; I27.2 Other secondary pulmonary hypertension; E86.0 Dehydration; E11.69 Type 2 diabetes mellitus with other specified complication; B96.89 Other specified bacterial agents as the cause of diseases classified elsewhere; E87.6 Hypokalemia; K58.9 Irritable bowel syndrome, unspecified
CPT/HCPCS: 04007; 1NP; 87070; 87205; 36415; 73120-LT; 76881; 77001; 81001; 82436; 87040; 87086; 93005; 93010; 96374; 99291; C1769; J0131; J1642; J1644; J2185; J2765; J3370; J7040; J7060; J7507; J7512; J7517